=== PATIENT | female | born 1965 | race Caucasian/White ===

== ENCOUNTER 2016-07-07 23:00 | Emergency (ER) | payer MEDICAID ==
[2016-03-13 13:58] VITALS: BMI 25.5
[~2016-07-07 23:00] MED LIST: ASPIRIN325 MG PO; CHANTIX 1 MG TAB1 MG PO; DIABETA5 MG PO; ECOTRIN325 MG PO; GLUCOPHAGE500 MG PO; GLYBURIDE5 M1 PO; LANOXIN250 MCG PO; NEURONTIN 300300 MG PO; NICODERM C1 PATCH .2 TRANSDERM; NORCO 10/325 TA1 TA1 PO; PLAVIX75 MG; PLAVIX75 MG PO; PRAVACHOL40 MG PO; PRILOSEC10 M1 PO; PRILOSEC20 MG PO; VALIUM10 MG PO; XANAX0.5 MG PO
[2016-07-07 23:49] LABS: BASOPHILS 0.3 % (0.0-2.0); EOSINOPHILS 1.3 % (0-7); HEMATOCRIT 39.6 % (36.0-48.0); HEMOGLOBIN 13.2 g/dL (12-16); IMMATURE GRANULOCYTES 0.1 % (0-5); LYMPHOCYTES 30.2 % (15-50); MCH 27.8 pg (26.0-34.0); MCHC 33.3 g/dL (31.0-37.0); MCV 83.5 fL (80.0-100.0); MEAN PLATELET VOLUME 10.8 fL (7.4-10.4); MONOCYTES 6.9 % (2-11); NEUTROPHILS 61.2 % (40-80); PLATELET COUNT 254 10x3/uL (130-400); RBC 4.74 10x6/uL (4.00-5.40); RDW 14.2 % (11.5-14.5); WBC 10.4 10x3/uL (4.8-10.8)
[2016-07-08 00:08] LABS: ALBUMIN 3.8 g/dL (3.4-5.0); ALKALINE PHOSPHATASE 76 U/L (46-116); ALT (SGPT) 19 U/L (10-68); BILIRUBIN - TOTAL 0.21 mg/dL (0.2-1.3); CALC OSMOLALITY 278 mosm/kg (275-300); CALCIUM 9.5 mg/dL (8.5-10.1); CARBON DIOXIDE 25.8 mmol/L (21.0-32.0); CHLORIDE - SERUM 103 mmol/L (98-107); CREATININE - SERUM 0.9 mg/dL (0.6-1.3); POTASSIUM - SERUM 3.8 mmol/L (3.5-5.1); PROTEIN - SERUM 7.7 g/dL (6.4-8.2); SODIUM 139 mmol/L (136-145); UREA NITROGEN 15 mg/dL (7-18); eGFR NON AFRICAN AMERICAN 70 mL/min (90-120)
[2016-07-08 00:11] LABS: GLUCOSE 107 mg/dL (74-106)
[2016-07-08 00:20] LABS: CHOL - HDL RATIO 5.4 ratio (2.3-4.1); CHOLESTEROL, TOTAL 232 mg/dL (0-200); CKMB 0.4 U/L (0.0-3.6); CREATINE KINASE 31 UL (21-215); HDL CHOLESTEROL 43 mg/dL (32-96); LDL CHOLESTEROL 137 mg/dL (0-100); LDL-HDL RATIO 3.2 ratio (1.5-3.5); TRIGLYCERIDE 262 mg/dL (30-200); TROPONIN-I < 0.017 ng/mL (0.000-0.060)
== END 2016-07-08 01:30 | disposition home or self-care (01) ==
LOC: D.ER 23:00
PROVIDERS: Emergency Medicine
DX: R07.9 Chest pain, unspecified (principal); M51.36 Other intervertebral disc degeneration, lumbar region; E11.9 Type 2 diabetes mellitus without complications; F17.200 Nicotine dependence, unspecified, uncomplicated

== ENCOUNTER 2016-07-15 06:27 | Outpatient (CLI) | payer MEDICAID ==
[~2016-07-15] VITALS: Ht 162.6 cm; Wt 72.7 kg
[2016-07-15] VITALS (8 sets, daily range): BP systolic 115–138; BP diastolic 65–80; Ht 162.6 cm; Wt 72.7 kg
--- NOTE | ~2016-07-15 | HEMODYNAMI ---
PATIENT:VIVIANA DELAROSA MEDICAL RECORD: [id number] : 67 LOCATION:D. D.2116 ADMISSION DATE: 07/15/16 Generatedon:07/15/201615:12 Patient name: VIVIANA DELAROSA Patient #: [id number] SSN: [id number] : 1965 Date of study: 07/15/2016 Page: Of Hemodynamic Procedure Report Patient Data Patient Demographics Procedure consent was obtained First Name: VIVIANA Gender: Female Last Name: W[place] : 1965 Patient #: [id number] Age: 50 year(s) Race: SSN: [id number] Additional ID: [id number] Contact details Address: [address] [address] [address] State: [place] City: [place] Zip code: [address] Past Medical History Performed procedures and imaging results Date Procedure Procedure Results Comments 07/15/2016 No ACC stress or imaging studies were performed History of disease Date Diagnosis Comments CAD Allergies Allergen Reaction Date Comments Reported Penicillins 09/07/2014 Morphine 09/07/2014 Other allergy 09/07/2014 steroids Penicillins 07/15/2016 Morphine 07/15/2016 Admission Admission Data Admission Date: 07/15/2016 Admission Time: 6:27 Admit Source: Emergency Insurance Payor: Medicaid department Room #: D.2116 Lab Results Lab Result Date: 07/15/2016 Lab Result Time: 0:00 Biochemistry Name Units Result Min Max CK-MB ng/ml 0.5 --(*---)-- 0 3.6 Creatinine mg/dl 0.8 --(-*--)-- 0.6 1.3 Troponin l ng/ml 0.017 --(-*--)-- 0 0.06 CBC Name Units Result Min Max Hemoglobin g/dl 12.4 *-(----)-- 13.5 17.5 Procedure Procedure Types Cath Procedure Diagnostic Procedure [facility] w/Coronaries PCI Procedure PTCA Initial Procedure Description Procedure Date Procedure Date: 07/15/2016 Procedure Start Time: 14:20 Procedure End Time: 15:12 Procedure Staff Name Function Beni Preciado MD Performing Physician Farrah Mehta RT Scrub Reji Mcghee RN Nurse Cameron Leija RN Aquatics Manager Amy Aguillon RT Monitor Procedure Data Cath Procedure Fluoroscopy Diagnostic fluoroscopy Total fluoroscopy Time: 9.2 time: 9.2 min min Diagnostic fluoroscopy Total fluoroscopy dose: dose: 1234 mGy 1234 mGy Contrast Material Contrast Material Type Amount (ml) Isovue 300 93 Entry Location Entry Primary Successful Side Size Upsize Upsize Entry Closure Succes sful Closure Location (Fr) 1 (Fr) 2 (Fr) Remarks Device Remarks Femoral Right 5 Fr vein Femoral Right 5 Fr 6 Fr Exoseal artery Short Estimated blood loss: 10 ml Diagnostic catheters Device Type Used For End Catheter Placement Cordis 5Fr Pigtail LV Angiography Catheter (MP) Cordis 5Fr JL 4.0 Left Coronary Catheter (MP) Angiography Cordis 5Fr 3DRC Catheter Right Coronary (MP) Angiography Procedure Complications No complications Procedure Medications Medication Administration Route Dosage Oxygen NC 2 l/min Lidocaine 2% added to field 20 Heparin Flush Bag added to field 2 bags (1000units/500ml NS) 0.9% NaCl I.V. 100 ml/hr Versed I.V. 1 mg Fentanyl I.V. 50 mcg Versed I.V. 1 mg Fentanyl I.V. 50 mcg Versed I.V. 1 mg Fentanyl I.V. 50 mcg Versed I.V. 1 mg Fentanyl I.V. 50 mcg Fentanyl I.V. 50 mcg Fentanyl I.V. 50 mcg Versed I.V. 1 mg Plavix P.O. 75 mg Versed I.V. 1 mg Heparin Bolus I.V. 7000 units Fentanyl I.V. 50 mcg Versed I.V. 1 mg Fentanyl I.V. 50 mcg Versed I.V. 1 mg Hemodynamics Rest HGB: 12.4 (g/dl) Heart Rate: 76 (bpm) Pressure Samples Time Site Value (mmHg) Purpose Heart Use Rate(bpm) 14:35 LV 151/-19,3 Snapshot 102 14:36 AO 143/74(105) Pullback 93 14:36 LV 136/-15,6 Pullback 93 Gradients Valve Time Site 1 Site 2 Mean SEP/DFP Peak To Heart Use (mmHg) (sec/min) Peak Rate (mmHg) (bpm) Aortic 14:36 LV AO 0 7 0 93 136/-15,6 143/74(105) Calculations Valve P-P Mean Valve Index Valve Source Name Gradient Area Flow (cm2) Aortic 0 0 0 0 Snapshots Pre Cath Intra NCS Post Cath Vital Signs Time Heart Resp SPO2 NIBP (mmHg) Rhythm Pain Sedation Rate (ipm) (%) Status Level (bpm) 14:09:07 72 0 96 135/79(111) NSR 0 (11) 10(A) , No pain 14:13:19 79 16 97 125/82(106) NSR 0 (11) 10(A) , No pain 14:17:27 80 16 96 127/83(108) NSR 0 (11) 10(A) , No pain 14:21:34 84 12 96 120/88(101) NSR 0 (11) 9(A) , No pain 14:25:38 85 9 94 127/88(105) NSR 0 (11) 9(A) , No pain 14:29:48 93 8 90 125/76(113) NSR 0 (11) 9(A) , No pain 14:33:56 95 16 95 135/81(106) NSR 0 (11) 10(A) , No pain 14:38:06 94 17 95 131/84(114) NSR 0 (11) 9(A) , No pain 14:42:16 92 18 94 127/83(100) NSR 0 (11) 9(A) , No pain 14:46:28 95 16 96 119/69(100) NSR 0 (11) 9(A) , No pain 14:50:37 94 19 96 125/69(103) NSR 0 (11) 9(A) , No pain 14:54:47 96 17 97 131/78(103) NSR 0 (11) 9(A) , No pain 14:58:57 97 16 96 121/74(104) NSR 0 (11) 9(A) , No pain 15:03:56 98 17 96 124/69(107) NSR 0 (11) 9(A) , No pain 15:08:06 96 17 94 115/79(97) NSR 0 (11) 10(A) , No pain 15:12:12 97 9 96 124/74(104) NSR 0 (11) 10(A) , No pain Medications Time Medication Route Dose Verified Delivered Reason Notes Effectiveness by by 14:12:53 Plavix P.O. 75 mg Beni Buffie for Tr Mcghee RN antiplatelet therapy 14:14:08 Oxygen NC 2 Beni Buffie used for l/min Tr Mcghee coke wheeler 14:14:19 Lidocaine 2% added 20ml Beni Beni for local to vial Tr Preciado MD anesthetic field 14:14:24 Heparin Flush added 2 Beni Beni used for Bag to bags Tr Preciado MD procedure (1000units/500ml field NS) 14:14:33 0.9% NaCl I.V. 100 Beni Buffie Per ml/hr Tr Mcghee RN physician 14:16:03 Fentanyl I.V. 50 Beni Buffie for sedation mcg Tr Mcghee RN 14:16:59 Versed I.V. 1 mg Beni Buffie for sedation Tr Mcghee RN 14:19:46 Versed I.V. 1 mg Beni Buffie for sedation Tr Mcghee RN 14:19:52 Fentanyl I.V. 50 Beni Buffie for sedation mcg Tr Mcghee RN 14:21:25 Versed I.V. 1 mg Beni Buffie for sedation Tr Mcghee RN 14:21:28 Fentanyl I.V. 50 Beni Buffie for sedation mcg Tr Mcghee RN 14:24:52 Versed I.V. 1 mg Beni Buffie for sedation Tr Mcghee RN 14:24:56 Fentanyl I.V. 50 Beni Buffie for sedation mcg Tr Mcghee RN 14:30:31 Fentanyl I.V. 50 Beni Buffie for sedation mcg Tr Mcghee RN 14:30:35 Versed I.V. 1 mg Beni Buffie for sedation Tr Mcghee RN 14:35:33 Fentanyl I.V. 50 Beni Buffie for sedation mcg Tr Mcghee RN 14:38:43 Versed I.V. 1 mg Beni Buffie for sedation Tr Mcghee RN 14:44:46 Versed I.V. 1 mg Beni Buffie for sedation Tr Mcghee RN 14:53:23 Heparin Bolus I.V. 7,000 Beni Buffie Per verified units Tr Mcghee RN physician with dr preciado 14:55:35 Fentanyl I.V. 50 Beni Buffie for sedation mcg Tr Mcghee RN 15:03:01 Fentanyl I.V. 50 Beni Buffie for sedation mcg Tr Mcghee RN 15:03:21 Versed I.V. 1 mg Beni Buffie for sedation Tr Mcghee financial planning analyst Log Time Note 13:50:53 Cameron Leija RN sent for patient. Start room use. 13:50:55 Time tracking: Regular hours 13:50:58 Plan of Care:Hemodynamics will remain stable., Cardiac rhythm will remain stable., Comfort level will be maintained., Respiratory function will remain adequate., Patient/ family verbilizes understanding of procedure., Procedure tolerated without complication., Recovers from procedure without complications.. 13:53:19 Admit Source: Emergency department 13:53:27 Insurance Payor : Medicaid 13:55:06 H&P Date Dictated: 07/15/2016 Within 30 days and on chart.. 13:55:11 ACC The patient was administered the following blood thiners within the last 24 hours: None 13:55:21 ACC Patient presents with Unstable Angina CCS Anginal Class 4--Inability to carry out any physical activity w/o angina. Angina may occur at rest. 13:55:24 ACCPatient has been prescribed/administered the following anti-anginal medication within the last 2 weeks: Ranexa (Ranolizine) 13:56:07 Lab Result : Troponin l 0.017 ng/ml 13:56:07 Lab Result : CK-MB 0.5 ng/ml 13:56:07 Lab Result : Creatinine 0.8 mg/dl 13:56:07 Lab Result : Hemoglobin 12.4 g/dl 14:01:27 Patient received from PCU to CCL 3 Alert and oriented. Tansferred to table in Supine position. 14:01:28 Warm blankets applied, and temitope hugger turned on for patient comfort. 14:01:29 Correct patient and procedure confirmed by team. 14:01:30 Signed procedure consent form obtained from patient. 14:01:31 ECG and BP/O2 sat monitors applied to patient. 14:01:32 Full Disclosure recording started 14:07:58 Vital chart was started 14:12:33 Baseline sample Acquired. 14:12:36 Rhythm: sinus rhythm 14:12:38 Pre-procedure instructions explained to patient. 14:12:38 Pre-op teaching completed and patient verbalized understanding. 14:12:42 Family in patients room. 14:12:44 Patient NPO since Midnight. 14:12:51 Patient allergic to Penicillins 14:12:53 Plavix 75 mg P.O. was given by Reji Mcghee RN; for antiplatelet therapy; 14:12:59 Patient allergic to Morphine 14:13:04 Is the patient allergic to Iodine/contrast media? No. 14:13:06 Is patient on blood thinner?Yes 14:13:09 Patient diabetic? Yes. 14:13:17 If diabetic: On Metformin? No 14:13:21 Previous problem with sedation/anesthesia? No ? 14:13:26 Snore? Yes 14:13:28 Sleep apnea? No 14:13:29 Deviated septum? No 14:13:30 Opens mouth fully? Yes 14:13:31 Sticks out tongue? Yes 14:13:33 Airway obstruction? No ? 14:13:35 Dentures? Yes OUT 14:14:00 Pre procedure: right dorsailis pedis pulse 2+ Normal; easily identifiable; not easily obliterated 14:14:02 Patient pain scale 0/10 ?. 14:14:08 Oxygen 2 l/min NC was given by Reji Mcghee RN; used for procedure; 14:14:19 Lidocaine 2% 20ml vial added to field was given by Beni Preciado MD; for local anesthetic; 14:14:24 Heparin Flush Bag (1000units/500ml NS) 2 bags added to field was given by Beni Preciado MD; used for procedure; 14:14:31 IV patent on arrival in right wrist with 0.9% NaCl at [facility]. 14:14:33 0.9% NaCl 100 ml/hr I.V. was given by Reji Mcghee RN; Per physician; 14:14:35 Lab results completed and on chart. 14:14:42 Right groin area was prepped with chlora-prep and draped in sterile fashion 14:14:43 Alarms reviewed by R. N. 14:14:44 Sharps counted by scrub and verified by R.N. 14:14:51 Use device set Femoral Dx 14:14:52 Acist Syringe opened to sterile field. 14:14:53 Bag Decanter opened to sterile field. 14:14:53 Cardinal Cath Pack opened to sterile field. 14:14:54 Terumo 5Fr Elberon Sheath opened to sterile field. 14:14:54 St Kyle 260cm J .035 wire opened to sterile field. 14:14:55 Acist Hand Control opened to sterile field. 14:14:56 Acist Manifold opened to sterile field. 14:14:57 Cordis Infinity 5Fr Multipack catheter opened to sterile field. 14:14:58 Tegaderm 4 x 4 opened to sterile field. 14:15:06 Final Timeout: patient, procedure, and site verified with staff and physician. All members of the team are in agreement. 14:15:08 Right groin site verified by team. 14:15:15 Physical assessment completed. ASA score P 2 - A patient with mild systemic disease as per Beni Preciado MD. 14:15:23 Sedation plan: IV Moderate Sedation Versed, Fentanyl 14:16:03 Fentanyl 50 mcg I.V. was given by Reji Mcghee RN; for sedation; 14:16:59 Versed 1 mg I.V. was given by Reji Mcghee RN; for sedation; 14:19:46 Versed 1 mg I.V. was given by Reji Mcghee RN; for sedation; 14:19:52 Fentanyl 50 mcg I.V. was given by Reji Mcghee RN; for sedation; 14:20:31 Procedure started. 14:20:34 Local anesthetic to right femoral artery with Lidocaine 2% by Beni Preciado MD.INITIAL ACCESS ONLY 14:21:23 Zero performed for pressure channel P1 14:21:25 Versed 1 mg I.V. was given by Reji Mcghee RN; for sedation; 14:21:28 Fentanyl 50 mcg I.V. was given by Reji Mcghee RN; for sedation; 14:24:52 Versed 1 mg I.V. was given by Reji Mcghee RN; for sedation; 14:24:56 Fentanyl 50 mcg I.V. was given by Reji Mcghee RN; for sedation; 14:30:31 Fentanyl 50 mcg I.V. was given by Reji Mcghee RN; for sedation; 14:30:35 Versed 1 mg I.V. was given by Reji Mcghee RN; for sedation; 14:34:39 A 5 Fr sheath was inserted into the Right Femoral vein 14:34:51 A 5 Fr sheath was inserted into the Right Femoral artery 14:35:33 Fentanyl 50 mcg I.V. was given by Reji Mcghee RN; for sedation; 14:36:10 A Cordis 5Fr Pigtail Catheter (MP) was advanced over the wire and used for LV Angiography. 14:36:11 LV gram done using BEGUM 14:36:16 EF : 60 % 14:36:18 LV hemodynamics recorded. 14:36:20 Injector settings: Ml/sec: 10, Volume: 20, 14:36:55 Catheter removed. 14:37:52 A Cordis 5Fr JL 4.0 Catheter (MP) was advanced over the wire and used for Left Coronary Angiography. 14:38:43 Versed 1 mg I.V. was given by Reji Mcghee RN; for sedation; 14:43:57 Catheter removed. 14:44:02 A Cordis 5Fr 3DRC Catheter (MP) was advanced over the wire and used for Right Coronary Angiography. 14:44:46 Versed 1 mg I.V. was given by Reji Mcghee RN; for sedation; 14:49:09 Catheter removed. 14:49:34 Terumo 6Fr Elberon Sheath opened to sterile field. 14:49:54 High Pressure Extension Tubing (rT) opened to sterile field. 14:49:55 Merit BasixCompak Inflation Kit opened to sterile field. 14:49:55 Wick BMW [place] 2 J-tip 300cm 0.014 guide wir opened to sterile field. 14:50:35 Sheath upsized to a 6 Fr Short. 14:50:46 ACC PCI Site: OM1 has 80% stenosis. 14:50:48 ACC Pre-intervention REAL Flow is 3. 14:51:40 6 Fr XBLAD 3.5 guide catheter was inserted over the wire 14:51:51 Cordis 6FR XBLAD 3.5 guide catheter opened to sterile field. 14:53:23 Heparin Bolus 7,000 units I.V. was given by Reji Mcghee RN; Per physician; verified with dr preciado 14:53:52 BMW wire advanced. 14:55:35 Fentanyl 50 mcg I.V. was given by Reji Mcghee RN; for sedation; 14:58:06 Inflation number: 1 A [place] Sci Faulk 1.5 X 15 balloon was prepped and advanced across the 1st Ob Valery, then inflated to 12 JESSICA for 0:56 (min:sec). 14:58:37 Inflation number: 2 The [place] Sci Faulk 1.5 X 15 balloon was reinflated across the 1st Ob Valery, to 10 JESSICA for 0:29 (min:sec). 14:59:21 Inflation number: 3 The [place] Sci Faulk 1.5 X 15 balloon was reinflated across the 1st Ob Valery, to 11 JESSICA for 0:41 (min:sec). 15:01:56 Balloon removed over the wire. 15:03:01 Fentanyl 50 mcg I.V. was given by Reji Mcghee RN; for sedation; 15:03:21 Versed 1 mg I.V. was given by Reji Mcghee RN; for sedation; 15:04:05 Inflation number: 4 A [place] Sci Faulk 2.0 X 12 balloon was prepped and advanced across the 1st Ob Valery, then inflated to 10 JESSICA for 0:43 (min:sec). 15:05:04 Inflation number: 5 The [place] Sci Faulk 2.0 X 12 balloon was reinflated across the 1st Ob Valery, to 12 JESSICA for 0:33 (min:sec). 15:05:41 Wire removed. 15:05:43 Guide catheter removed. 15:06:09 Cordis 6Fr Exoseal opened to sterile field. 15:06:17 Sheath removed intact; hemostasis achieved with Exoseal to the Right Femoral artery. 15:06:22 Procedure ended.(Physican Out) 15:07:04 Fluoroscopy time 09.20 minutes. 15:07:19 Flurop Dose total: 1234 15:07:19 Fluoroscopy dose: 1234 mGy 15:07:32 Contrast amount:Isovue 300 93ml. 15:07:34 Sharps counted by scrub and verified by R.N. 15:07:36 Insertion/operative site no bleeding no hematoma. 15:07:39 Post-op/insertion site Right Femoral artery dressed using a 4 x 4 and Tegaderm. 15:07:42 Post right femoral artery:stable, clean and dry 15:07:44 Post Procedure Pulses reassessed and unchanged 15:07:47 Post procedure: right dorsailis pedis pulse 2+ Normal; easily identifiable; not easily obliterated. 15:07:52 Post-procedure physical assessment completed. ASA score P 2 - A patient with mild systemic disease as per Beni Preciado MD. 15:07:54 Post procedure rhythm: unchanged. 15:07:57 Estimated blood loss: 10 ml 15:07:59 Post procedure instruction explained to patient.Patient verbalizes understanding. 15:07:59 Patient needs reinforcement of post procedure teaching. 15:08:04 Procedure type changed to Cath procedure, Diagnostic procedure, LHC, LHC w/Coronaries, PCI procedure, PTCA Initial 15:08:12 Procedure Complication : No complications 15:08:15 See physician's report for complete and final results. 15:09:19 Terumo 5Fr Elberon Sheath opened to sterile field. 15:10:04 Procedure and supply charges have been captured, reviewed, submitted and are correct. 15:11:50 Vital chart was stopped 15:12:03 Report given to PCU. 15:12:07 Patient transfered to PCU with Bed. 15:12:19 Procedure ended. 15:12:19 Full Disclosure recording stopped 15:12:23 End room use (Document Last) Intervention Summary Intervention Notes Time ActionType Lesion and Equipment Action# Pressure Duration Attributes Used 14:58:06 Inflate 1st Ob Valery [place] 1 12 00:56 balloon Sci Faulk 1.5 X 15 balloon 14:58:37 Reinflate 1st Ob Valery [place] 2 10 00:29 balloon Sci Faulk 1.5 X 15 balloon 14:59:21 Reinflate 1st Ob Valery [place] 3 11 00:41 balloon Sci Faulk 1.5 X 15 balloon 15:04:05 Inflate 1st Ob Valery [place] 4 10 00:43 balloon Sci Faulk 2.0 X 12 balloon 15:05:04 Reinflate 1st Ob Valery [place] 5 12 00:33 balloon Sci Faulk 2.0 X 12 balloon Device Usage Item Name Manufacture Quantity Catalog Number Hospital Part Current Mini [facility] Lot# / Charge Number Stock Stock Serial# Code Acist Acist 1 89730 [id number] 401348 114255 20 Syringe Medical Systems Inc Bag Microtek 1 2002S 918919 10228 729690 5 Andtix Inc. Cardinal Cardinal [address] 827143 45540 335315 5 Media Machines Terumo 5Fr Terumo 2 [id number] 838429 083588 489382 [address] St Kyle 1 185742 788084 934359 744120 30 260cm J .035 wire Acist Hand Acist 1 87849 925155 358555 163202 5 Control Medical Systems Inc Acist Acist 1 52452 822756 073449 260723 5 Manifold Medical Systems Inc Cordis Cardinal 1 [id number] 095470 42392 321996 30 Infinity Health 5Fr Multipack catheter Tegaderm 4 3M 1 1626W 636100 875230 408591 5 x 4 Cordis 5Fr Cardinal 1 964061 5 Pigtail Health Catheter (MP) Cordis 5Fr Cardinal 1 357149 5 JL 4.0 Health Catheter (MP) Cordis 5Fr Cardinal 1 752083 5 3DRC Health Catheter (MP) Terumo 6Fr Terumo 1 [id number] 733072 063727 070021 40 Elberon Sheath High Merit 1 [id number] 225299 29555 784988 10 Pressure Medical Extension Tubing (Preciado) Merit Merit 1 [id number] 323249 679947 356341 15 BasixCompak Medical Inflation Kit Wick BMW Wick 1 [id number] 736947 375180 372974 5 [place] 2 Vascular J-tip 300cm 0.014 guide wir Cordis 6FR Cardinal 1 [id number] 671729 527611 340262 10 XBLAD 3.5 Health guide catheter [place] Sci [place] 1 [id number] 235570 658723 966378 1 [id number] Faulk Scientific 1.5 X 15 balloon [place] Sci [place] 1 [id number] 988646 290119 085097 1 [id number] Faulk Scientific 2.0 X 12 balloon Cordis 6Fr Cardinal 1 EX600 468734 723730 876551 10 [facility] Health Signature Audit [place] Stage Time Signature Unsigned Intra-Procedure 07/15/2016 Amy 3:12:38 PM Counts RT(R) Signatures Monitor : Amy Signature : Counts RT Date : Time : [facility] [address] [place] [address]
[2016-07-15 03:37] LABS: BASOPHILS 0.1 % (0.0-2.0); EOSINOPHILS 1.8 % (0-7); HEMATOCRIT 39.3 % (36.0-48.0); HEMOGLOBIN 13.1 g/dL (12-16); IMMATURE GRANULOCYTES 0.2 % (0-5); LYMPHOCYTES 40.5 % (15-50); MCH 28.2 pg (26.0-34.0); MCHC 33.3 g/dL (31.0-37.0); MCV 84.5 fL (80.0-100.0); MEAN PLATELET VOLUME 11.1 fL (7.4-10.4); NEUTROPHILS 48.4 % (40-80); PLATELET COUNT 260 10x3/uL (130-400); RBC 4.65 10x6/uL (4.00-5.40); RDW 14.7 % (11.5-14.5); WBC 8.8 10x3/uL (4.8-10.8)
[2016-07-15 03:52] LABS: ALBUMIN 3.7 g/dL (3.4-5.0); ALKALINE PHOSPHATASE 67 U/L (46-116); ALT (SGPT) 20 U/L (10-68); BILIRUBIN - TOTAL 0.23 mg/dL (0.2-1.3); CALC OSMOLALITY 283 mosm/kg (275-300); CALCIUM 9.5 mg/dL (8.5-10.1); CHLORIDE - SERUM 106 mmol/L (98-107); CREATININE - SERUM 0.9 mg/dL (0.6-1.3); GLUCOSE 90 mg/dL (74-106); POTASSIUM - SERUM 3.7 mmol/L (3.5-5.1); PROTEIN - SERUM 7.2 g/dL (6.4-8.2); SODIUM 143 mmol/L (136-145); UREA NITROGEN 9 mg/dL (7-18); eGFR NON AFRICAN AMERICAN 70 mL/min (90-120)
[2016-07-15 04:02] LABS: CHOL - HDL RATIO 4.8 ratio (2.3-4.1); CHOLESTEROL, TOTAL 215 mg/dL (0-200); CKMB 0.5 U/L (0.0-3.6); CREATINE KINASE 32 UL (21-215); HDL CHOLESTEROL 45 mg/dL (32-96); LDL CHOLESTEROL 110 mg/dL (0-100); LDL-HDL RATIO 2.4 ratio (1.5-3.5); TRIGLYCERIDE 304 mg/dL (30-200)
[2016-07-15 04:12] LABS: TROPONIN-I < 0.017 ng/mL (0.000-0.060)
--- NOTE | 2016-07-15 07:47 | NUR ---
RECEIVED PT FROM ER IN STABLE CONDITION VIA W/C AAOX4 ANSWERS APPROPRIATELY
[2016-07-15] MEDS ORDERED: PROTONIX40 MG PO (08:04)
[2016-07-15] MEDS ORDERED: RANEXA1000 MG PO (08:05)
[2016-07-15] MEDS ORDERED: ZETIA10 MG PO (08:05)
[2016-07-15 11:02] LABS: BASOPHILS 0.2 % (0.0-2.0); EOSINOPHILS 1.3 % (0-7); HEMATOCRIT 38.3 % (36.0-48.0); HEMOGLOBIN 12.4 g/dL (12-16); IMMATURE GRANULOCYTES 0.2 % (0-5); LYMPHOCYTES 29.8 % (15-50); MCH 27.6 pg (26.0-34.0); MCHC 32.4 g/dL (31.0-37.0); MCV 85.3 fL (80.0-100.0); MEAN PLATELET VOLUME 10.8 fL (7.4-10.4); MONOCYTES 5.5 % (2-11); PLATELET COUNT 235 10x3/uL (130-400); RBC 4.49 10x6/uL (4.00-5.40); RDW 14.7 % (11.5-14.5); WBC 9.6 10x3/uL (4.8-10.8)
[2016-07-15 11:19] LABS: CALC OSMOLALITY 279 mosm/kg (275-300); CALCIUM 9.3 mg/dL (8.5-10.1); CARBON DIOXIDE 27.4 mmol/L (21.0-32.0); CHLORIDE - SERUM 103 mmol/L (98-107); CREATININE - SERUM 0.8 mg/dL (0.6-1.3); SODIUM 139 mmol/L (136-145); UREA NITROGEN 9 mg/dL (7-18); eGFR NON AFRICAN AMERICAN 81 mL/min (90-120)
[2016-07-15 11:23] LABS: GLUCOSE 158 mg/dL (74-106)
--- NOTE | 2016-07-28 15:45 | DS ---
PATIENT:VIVIANA BOGGS :67 MEDICAL RECORD: [id number] DISCHARGE SUMMARY ADMISSION DATE: 07/15/16 DISCHARGE DATE: 07/16/16 ADMISSION DIAGNOSIS: Unstable angina. SECONDARY DIAGNOSES: 1. Hypertension. 2. Atherosclerotic heart disease. HOSPITAL COURSE: Mr. Boggs is a 50-year-old woman with history of coronary artery disease. She presented to the Emergency Room with accelerating angina. She underwent cardiac catheterization. She had a critical restenosis of the lateral branch and circumflex. This was successfully dilated. She will be observed for 4 hours. Her groin was without hematoma or bruit. She will be discharged to home this afternoon. MEDICATIONS ON DISCHARGE: She is to continue her home medical regimen. FOLLOWUP: We will see her back in clinic in 3-4 weeks. TRANSINT:[id number] Voice Confirmation ID: [id number] DOCUMENT ID: [id number] JOSE FRANCISCO PRYOR M.D. at 1545 CC: [id number] DICTATION DATE: 07/15/16 1513 SOUND RANGING CREWMEMBER: 07/15/16 1546 DEP CLI 07/16/16 [address] [place] [address]
--- NOTE | 2016-07-28 15:45 | OP ---
PATIENT NAME: VIVIANA DELAROSA MEDICAL RECORD: [id number] :67 LOCATION:D.ER ADMISSION DATE: SURGEON: JOSE FRANCISCO PRYOR M.D. DATE OF OPERATION: 07/15/2016 Catheterization Report REFERRING PHYSICIAN: None. PROCEDURES PERFORMED: 1. Selective coronary angiography. 2. Left heart catheterization with ventriculogram. 3. PTCA of the circumflex. INDICATION: A 50-year-old woman status post stenting 4 months ago, presents with accelerating angina. EQUIPMENT USED: Diagnostic 5-[place] JL4, Deyvi right, pigtail catheter. INTERVENTION: A 6-[place] XB 3.5 guide, BMW guide wire, 1.5 x 12 mm [place] balloon, 2.0 x 12 mm [place] balloon. TECHNIQUE: A 5-[place] sheath was inserted in retrograde fashion in the right common femoral artery. Next, selective coronary angiography was performed in standard views using 5-[place] JL4 and Deyvi right. Left heart catheterization was performed using pigtail catheter. CORONARY ANATOMY: 1. Left main: Left main trunk is moderate in caliber. It gives rise to the LAD and circumflex. There is no obstruction. 2. LAD: This is a moderate caliber vessel extending to the apex. The proximal vessel has been stented. The stents are widely patent. 3. Circumflex: This vessel is moderate in caliber and dominant. It provides a lateral branch in the proximal segment with continuation provides 2 large posterolateral branches to form the PDA. The mid vessel has been stented. The stents are widely patent. However, the origin of the first lateral branch has a 90% stenosis at the origin. 4. Right coronary: This vessel is small and nondominant. It is widely patent. 5. Left ventricle: Left ventricle is normal in size and function. No wall motion abnormalities are seen. Estimated ejection fraction is 60%. DESCRIPTION OF INTERVENTION: A 6-[place] sheath was inserted in retrograde fashion in the right common femoral artery. Next, 100 units per kilogram of heparin was infused. A 6-[place] XB 3.5 guide was advanced and engaged in the left main coronary artery. Next, a BMW guide wire was placed in the first lateral branch and circumflex. The origin was predilated with a 1.5 x 12 mm [place] balloon at 12 atmospheres. Injections revealed persistent 70% residual stenosis. At this point, a 2.0 x 12 mm balloon was advanced and several inflations were performed at the ostium at 12 atmospheres. Injections revealed about 10% to 20% residual stenosis. There is marked improvement in distal flow. At this point, the wire and guide were removed. IMPRESSION: Successful percutaneous transluminal coronary angioplasty to the lateral branch and circumflex. OPERATIVE REPORT [id number] FUADTAYLOR STOVALLILAN TRANSINT:[id number] Voice Confirmation ID: [id number] DOCUMENT ID: [id number] JOSE FRANCISCO PRYOR M.D. at 1545 CC: [id number] DICTATION DATE: 07/15/16 1513 THIMBLE PRESS OPERATOR: 07/15/16 1542 [facility] CLI 07/16/16 [id number] [place] [address]
== END 2016-07-16 00:06 | disposition home or self-care (01) ==
LOC: OBSVTIME → D.M2 06:27 → D.ER 06:27 → OBSVTIME 06:44 → EDSTATUS 13:00 → D.M2 07-16 00:06 → D.ER 07-16 00:06
PROVIDERS: Emergency Medicine; Internal Medicine Cardiovascular Disease
DX: I20.0 Unstable angina (principal); E11.9 Type 2 diabetes mellitus without complications; E78.5 Hyperlipidemia, unspecified

== ENCOUNTER 2016-07-16 20:34 | Emergency (ER) | payer MEDICAID ==
[2016-07-15 19:16] VITALS: BMI 27.5
[~2016-07-16 20:34] MED LIST changes: +PROTONIX40 MG PO; +RANEXA1000 MG PO; +ZETIA10 MG PO
[2016-07-16 22:21] LABS: BASOPHILS 0.2 % (0.0-2.0); EOSINOPHILS 1.7 % (0-7); HEMATOCRIT 40.2 % (36.0-48.0); HEMOGLOBIN 13.6 g/dL (12-16); IMMATURE GRANULOCYTES 0.1 % (0-5); LYMPHOCYTES 35.5 % (15-50); MCH 28.6 pg (26.0-34.0); MCHC 33.8 g/dL (31.0-37.0); MCV 84.5 fL (80.0-100.0); MEAN PLATELET VOLUME 11.3 fL (7.4-10.4); MONOCYTES 7.4 % (2-11); NEUTROPHILS 55.1 % (40-80); PLATELET COUNT 268 10x3/uL (130-400); RBC 4.76 10x6/uL (4.00-5.40); RDW 14.5 % (11.5-14.5); WBC 8.8 10x3/uL (4.8-10.8)
[2016-07-16 22:30] LABS: ALBUMIN 3.8 g/dL (3.4-5.0); ALKALINE PHOSPHATASE 69 U/L (46-116); BILIRUBIN - TOTAL 0.19 mg/dL (0.2-1.3); CALC OSMOLALITY 278 mosm/kg (275-300); CALCIUM 9.1 mg/dL (8.5-10.1); CHLORIDE - SERUM 104 mmol/L (98-107); CREATININE - SERUM 0.9 mg/dL (0.6-1.3); GLUCOSE 137 mg/dL (74-106); POTASSIUM - SERUM 4.1 mmol/L (3.5-5.1); PROTEIN - SERUM 7.5 g/dL (6.4-8.2); SODIUM 139 mmol/L (136-145); UREA NITROGEN 10 mg/dL (7-18); eGFR NON AFRICAN AMERICAN 70 mL/min (90-120)
[2016-07-16 22:32] LABS: ALT (SGPT) 27 U/L (10-68)
[2016-07-16 22:39] LABS: CKMB 0.2 U/L (0.0-3.6); CREATINE KINASE 27 UL (21-215)
[2016-07-16 22:40] LABS: TROPONIN-I < 0.017 ng/mL (0.000-0.060)
== END 2016-07-16 23:19 | disposition home or self-care (01) ==
LOC: D.ER 20:34
PROVIDERS: Emergency Medicine
DX: I25.10 Atherosclerotic heart disease of native coronary artery without angina pectoris (principal); R07.9 Chest pain, unspecified; R00.0 Tachycardia, unspecified; R94.31 Abnormal electrocardiogram [ECG] [EKG]; F17.200 Nicotine dependence, unspecified, uncomplicated

== ENCOUNTER 2016-10-12 21:18 | Emergency (ER) | payer MEDICAID ==
[2016-10-12 22:10] LABS: BASOPHILS 0.4 % (0.0-2.0); EOSINOPHILS 1.2 % (0-7); HEMATOCRIT 39.1 % (36.0-48.0); HEMOGLOBIN 12.9 g/dL (12-16); IMMATURE GRANULOCYTES 0.1 % (0-5); LYMPHOCYTES 30.6 % (15-50); MCH 27.9 pg (26.0-34.0); MCV 84.6 fL (80.0-100.0); MEAN PLATELET VOLUME 11.2 fL (7.4-10.4); NEUTROPHILS 61.7 % (40-80); PLATELET COUNT 250 10x3/uL (130-400); RBC 4.62 10x6/uL (4.00-5.40); RDW 13.6 % (11.5-14.5); WBC 8.4 10x3/uL (4.8-10.8)
[2016-10-12 22:20] LABS: ALBUMIN 3.5 g/dL (3.4-5.0); ALKALINE PHOSPHATASE 90 U/L (46-116); ALT (SGPT) 24 U/L (10-68); BILIRUBIN - TOTAL 0.29 mg/dL (0.2-1.3); CALC OSMOLALITY 280 mosm/kg (275-300); CALCIUM 8.9 mg/dL (8.5-10.1); CARBON DIOXIDE 24.1 mmol/L (21.0-32.0); CHLORIDE - SERUM 101 mmol/L (98-107); CREATININE - SERUM 0.9 mg/dL (0.6-1.3); POTASSIUM - SERUM 4.2 mmol/L (3.5-5.1); PROTEIN - SERUM 7.4 g/dL (6.4-8.2); SODIUM 137 mmol/L (136-145); UREA NITROGEN 12 mg/dL (7-18); eGFR NON AFRICAN AMERICAN 70 mL/min (90-120)
[2016-10-12 22:21] LABS: GLUCOSE 230 mg/dL (74-106)
[2016-10-12 22:31] LABS: CHOL - HDL RATIO 7.5 ratio (2.3-4.1); CHOLESTEROL, TOTAL 225 mg/dL (0-200); CKMB 0.4 U/L (0.0-3.6); CREATINE KINASE 86 UL (21-215); HDL CHOLESTEROL 30 mg/dL (32-96); LDL CHOLESTEROL 120 mg/dL (0-100); MAGNESIUM - SERUM 1.8 mg/dL (1.8-2.4); TRIGLYCERIDE 379 mg/dL (30-200)
[2016-10-12 22:33] LABS: TROPONIN-I < 0.017 ng/mL (0.000-0.060)
== END 2016-10-12 23:03 | disposition home or self-care (01) ==
LOC: D.ER 21:18
PROVIDERS: Emergency Medicine
DX: R07.9 Chest pain, unspecified (principal); I25.10 Atherosclerotic heart disease of native coronary artery without angina pectoris; E11.9 Type 2 diabetes mellitus without complications; M51.36 Other intervertebral disc degeneration, lumbar region; F17.200 Nicotine dependence, unspecified, uncomplicated

== ENCOUNTER 2016-10-27 08:09 | Outpatient (CLI) | payer MEDICAID ==
[~2016-10-27] VITALS: Ht 162.6 cm; Wt 77.3 kg
--- NOTE | ~2016-10-27 | HEMODYNAMI ---
PATIENT:VIVIANA DELAROSA MEDICAL RECORD: [id number] : 67 LOCATION:[facility] ADMISSION DATE: 10/27/16 Generatedon:10/27/201611:29 Patient name: VIVIANA DELAROSA Patient #: [id number] SSN: [id number] : 1965 Date of study: 10/27/2016 Page: Of Hemodynamic Procedure Report Patient Data Patient Demographics Procedure consent was obtained First Name: VIVIANA Gender: Female Last Name: [place] : 1965 Patient #: [id number] Age: 51 year(s) Race: SSN: [id number] Additional ID: [id number] Contact details Address: [place] [address] State: [place] City: [place] Zip code: [address] Past Medical History History of disease Date Diagnosis Comments CAD Allergies Allergen Reaction Date Comments Reported Penicillins 09/07/2014 Morphine 09/07/2014 Other allergy 09/07/2014 steroids Penicillins 07/15/2016 Morphine 07/15/2016 Admission Admission Data Admission Date: 10/27/2016 Admission Time: 8:09 Arrival Date: 10/27/2016 Arrival Time: 0:00 Admit Source: Other Insurance Payor: Medicaid Height (in.): 66 BSA: 1.87 (m2) Height (cm.): 167.64 BMI: 27.6 (kg/m2) Weight (lbs.): 171 Weight (kg.): 77.56 Lab Results Lab Result Date: 10/27/2016 Lab Result Time: 0:00 Biochemistry Name Units Result Min Max BUN mg/dl 16 --(---*)-- 7 18 Creatinine mg/dl 0.7 --(*---)-- 0.6 1.3 CBC Name Units Result Min Max Hemoglobin g/dl 12.6 -*(----)-- 13.5 17.5 Procedure Procedure Types Cath Procedure Diagnostic Procedure LHC [facility] w/Coronaries PCI Procedure Coronary Stent Initial Miscellaneous Procedures Moderate Sedation up to 30 minutes Peripheral Cath Diagnostic Procedure Cath Peripheral Raqyj-Hxjpqhc-Uiy-Off Procedure Description Procedure Date Procedure Date: 10/27/2016 Procedure Start Time: 11:04 Procedure End Time: 11:25 Procedure Staff Name Function Kalyan Byrd MD Performing Physician Farrah Mehta RT Scrub Reji Mcghee RN Nurse Monserrat Wilkerson RT Monitor Procedure Data Cath Procedure Fluoroscopy Diagnostic fluoroscopy Total fluoroscopy Time: 4.5 time: 4.5 min min Diagnostic fluoroscopy Total fluoroscopy dose: 908 dose: 908 mGy mGy Contrast Material Contrast Material Type Amount (ml) Isovue 370 125 Entry Location Entry Primary Successful Side Size Upsize Upsize Entry Closure Succes sful Closure Location (Fr) 1 (Fr) 2 (Fr) Remarks Device Remarks Femoral Right 5 Fr 6 Fr Exoseal artery Short Estimated blood loss: 5 ml Diagnostic catheters Device Type Used For End Catheter Placement Cordis 5Fr Pigtail LV Angiography Catheter (MP) Cordis 5Fr JL 4.0 Left Coronary Catheter (MP) Angiography Cordis 5Fr 3DRC Catheter Right Coronary (MP) Angiography Diagnostic Infinity 5Fr Right Coronary AR 2 MOD catheter Angiography Procedure Complications No complications Procedure Medications Medication Administration Route Dosage Oxygen NC 2 l/min Lidocaine 2% added to field 20 Heparin Flush Bag added to field 2 bags (1000units/500ml NS) 0.9% NaCl I.V. 100 ml/hr Versed I.V. 2 mg Fentanyl I.V. 100 mcg Versed I.V. 2 mg Fentanyl I.V. 100 mcg Versed I.V. 2 mg Fentanyl I.V. 100 mcg Versed I.V. 2 mg Fentanyl I.V. 100 mcg Heparin Bolus I.V. 4000 units Hemodynamics Rest BSA: 1.87 (m2) HGB: 12.6 (g/dl) O2 Consumption: Estimated: 184.65 (ml/min) O2 Co nsumption indexed: Estimated:98.74 (ml/min/m) Heart Rate: 72 (bpm) Pressure Samples Time Site Value (mmHg) Purpose Heart Use Rate(bpm) 11:11 LV 81/25,30 Snapshot 86 Snapshots Pre Cath Intra NCS Post Cath Vital Signs Time Heart Resp SPO2 etCO2 [id number] NIBP (mmHg) Rhythm Pain Sedation Rate (ipm) (%) (mmHg) (mmHg) Status Level (bpm) 10:27:29 73 19 98 0 0 144/80(107) NSR 0 (11) 10(A) , No pain 10:31:43 73 15 100 0 0 139/83(116) NSR 0 (11) 10(A) , No pain 10:35:59 80 18 99 0 0 143/87(121) NSR 0 (11) 10(A) , No pain 10:40:15 82 16 98 0 0 146/82(102) NSR 0 (11) 10(A) , No pain 10:44:29 76 15 100 0 0 148/75(129) NSR 0 (11) 10(A) , No pain 10:48:47 78 16 98 0 0 145/79(107) NSR 0 (11) 10(A) , No pain 10:53:05 78 15 99 0 0 132/75(101) NSR 0 (11) 10(A) , No pain 10:57:19 81 15 97 0 0 137/75(105) NSR 0 (11) 10(A) , No pain 11:01:35 80 17 98 0 0 129/75(98) NSR 0 (11) 10(A) , No pain 11:05:49 81 18 98 0 0 130/73(100) NSR 0 (11) 10(A) , No pain 11:10:01 82 16 97 0 0 118/80(105) NSR 0 (11) 9(A) , No pain 11:14:11 93 19 94 0 0 131/75(92) NSR 0 (11) 9(A) , No pain 11:18:23 96 16 94 0 0 129/82(119) NSR 0 (11) 9(A) , No pain 11:22:35 94 17 95 0 0 132/75(110) NSR 0 (11) 10(A) , No pain Medications Time Medication Route Dose Verified Delivered Reason Notes Effectiveness by by 10:39:13 Oxygen NC 2 Kalyan Buffie used for l/min Carson Mcghee typists supervisor 10:39:23 Lidocaine 2% added 20ml Kalyan Biggs for local to vial Carson Byrd MD anesthetic field 10:40:33 Heparin Flush added 2 Kalyan Biggs used for Bag to bags Carson Byrd MD procedure (1000units/500ml field NS) 10:40:43 0.9% NaCl I.V. 100 Kalyan Buffie Per physician ml/hr Carson Mcghee RN 11:00:24 Versed I.V. 2 mg Kalyan Buffie for sedation Carson Mcghee RN 11:00:31 Fentanyl I.V. 100 Kalyan Buffie for sedation mcg Carson Mcghee RN 11:04:36 Versed I.V. 2 mg Kalyan Buffie for sedation Carson Mcghee RN 11:04:40 Fentanyl I.V. 100 Kalyan Buffie for sedation mcg Carson Mcghee RN 11:10:13 Versed I.V. 2 mg Kalyan Buffie for sedation Carson Mcghee RN 11:10:17 Fentanyl I.V. 100 Kalyan Buffie for sedation mcg Carson Mcghee RN 11:17:48 Versed I.V. 2 mg Kalyan Buffie for sedation Carson Mcghee RN 11:17:52 Fentanyl I.V. 100 Kalyan Buffie for sedation mcg Carson Mcghee RN 11:19:00 Heparin Bolus I.V. 4000 Kalyan Buffie for verifi ed units Carson Mcghee RN anticoagulation with dr byrd Procedure Log Time Note 10:07:57 Insurance Payor : Medicaid 10:08:17 Patient Height : 66 cm 10:08:25 Patient Weight : 171 kg 10:08:27 Arrival Date: 10/27/2016 12:00:00 AM 10:10:00 Farrah CROUCH(R) sent for patient. Start room use. 10:13:36 Lab Result : BUN 16 mg/dl 10:13:36 Lab Result : Hemoglobin 12.6 g/dl 10:13:36 Lab Result : Creatinine 0.7 mg/dl 10:14:43 Diagnostic Cath Status : Elective 10:16:07 Time tracking: Regular hours 10:16:12 Plan of Care:Hemodynamics will remain stable., Cardiac rhythm will remain stable., Comfort level will be maintained., Respiratory function will remain adequate., Patient/ family verbilizes understanding of procedure., Procedure tolerated without complication., Recovers from procedure without complications.. 10:20:46 Patient received from Pre/Post Procedure Room to CCL 1 Alert and oriented. Tansferred to table in Supine position. 10:20:47 Warm blankets applied, and temitope hugger turned on for patient comfort. 10:20:48 Correct patient and procedure confirmed by team. 10:20:50 Signed procedure consent form obtained from patient. 10:20:52 ECG and BP/O2 sat monitors applied to patient. 10:26:23 Vital chart was started 10::24 Baseline sample Acquired. 10::27 Rhythm: sinus rhythm 10::29 Full Disclosure recording started 10:26:48 H&P Date Dictated: 10/22/2016 Within 30 days and on chart., H&P Addendum completed by physician on day of procedure. (MUST COMPLETE FOR ALL OUTPATIENTS). 10:26:50 Pre-procedure instructions explained to patient. 10:26:50 Pre-op teaching completed and patient verbalized understanding. 10:26:51 Family in waiting room. 10:26:53 Patient NPO since Midnight. 10:26:59 Is the patient allergic to Iodine/contrast media? No. 10:27:00 Was the patient premedicated? No 10:27:01 Is patient on blood thinner?Yes 10:27:04 ACC The patient was administered the following blood thiners within the last 24 hours: ACCAspirin 10:27:07 Patient diabetic? Yes. 10:27:08 If diabetic: On Metformin? Yes 10:27:11 If on Metformin: Last Dose? 10/25/2016 10:27:26 Previous problem with sedation/anesthesia? No ? 10:27:27 Snore? Yes 10:27:28 Sleep apnea? No 10:27:29 Deviated septum? No 10:27:30 Opens mouth fully? Yes 10:27:31 Sticks out tongue? Yes 10:27:33 Airway obstruction? No ? 10:27:36 Dentures? No ? 10:27:39 Pre procedure: right dorsailis pedis pulse 1+ Palpable, but thready & weak; easily obliterated 10:27:43 Patient pain scale 0/10 ?. 10:27:51 IV patent on arrival in left forearm with 0.9% NaCl at [facility]. 10:27:55 Lab results completed and on chart. 10:28:09 Bilateral groins area was prepped with chlora-prep and draped in sterile fashion 10:28:10 Alarms reviewed by R. N. 10:28:10 Sharps counted by scrub and verified by R.N. 10:29:19 Admit Source: Other 10:39:13 Oxygen 2 l/min NC was administered by Reji Mcghee RN; used for procedure; 10:39:23 Lidocaine 2% 20ml vial added to field was administered by Kalyan Byrd MD; for local anesthetic; 10:40:33 Heparin Flush Bag (1000units/500ml NS) 2 bags added to field was administered by Kalyan Byrd MD; used for procedure; 10:40:43 0.9% NaCl 100 ml/hr I.V. was administered by Reji Mcghee RN; Per physician; 10:45:19 Zero performed for pressure channel P1 10:45:26 Zero performed for pressure channel P1 10:45:34 Zero performed for pressure channel P1 10:45:41 Zero performed for pressure channel P1 10:59:00 Physician arrived 10:59:01 --------ALL STOP TIME OUT------ 10:59:01 Final Timeout: patient, procedure, and site verified with staff and physician. All members of the team are in agreement. 10:59:05 Bilateral groins site verified by team. 10:59:08 Physical assessment completed. ASA score P 2 - A patient with mild systemic disease as per Kalyan Byrd MD. 10:59:13 Sedation plan: IV Moderate Sedation Versed, Fentanyl 11:00:24 Versed 2 mg I.V. was administered by Reji Mcghee RN; for sedation; 11:00:31 Fentanyl 100 mcg I.V. was administered by Reji Mcghee RN; for sedation; 11:01:07 Zero performed for pressure channel P1 11:01:56 Use device set Femoral Dx 11:01:57 Acist Syringe opened to sterile field. 11:01:58 Bag Decanter opened to sterile field. 11:01:58 Medline Cath Pack opened to sterile field. 11:01:59 Terumo 5Fr [place] Sheath opened to sterile field. 11:01:59 St Kyle 260cm J .035 wire opened to sterile field. 11:02:01 Acist Hand Control opened to sterile field. 11:02:01 Acist Manifold opened to sterile field. 11:02:02 Diagnostic Infinity 5Fr Multipack catheter opened to sterile field. 11:02:02 Tegaderm 4 x 4 opened to sterile field. 11:04:11 Procedure started. 11:04:14 Local anesthetic to right femoral artery with Lidocaine 2% by Kalyan Byrd MD.INITIAL ACCESS ONLY 11:04:36 Versed 2 mg I.V. was administered by Reji Mcghee RN; for sedation; 11:04:40 Fentanyl 100 mcg I.V. was administered by Reji Mcghee RN; for sedation; 11:07:20 A 5 Fr sheath was inserted into the Right Femoral artery 11:10:13 Versed 2 mg I.V. was administered by Reji Mcghee RN; for sedation; 11:10:17 Fentanyl 100 mcg I.V. was administered by Reji Mcghee RN; for sedation; 11:11:13 A Cordis 5Fr Pigtail Catheter (MP) was advanced over the wire and used for LV Angiography. 11:12:01 LV hemodynamics recorded. 11:12:03 LV gram done using BEGUM 11:12:06 Injector settings: Ml/sec: 5, Volume: 15, 11:12:15 EF : 60 % 11:12:22 Abdominal angiogram w/ runoff was performed. 11:12:30 Injector settings: Ml/sec: 10, Volume: 20, 11:13:37 Catheter removed. 11:13:47 A Cordis 5Fr JL 4.0 Catheter (MP) was advanced over the wire and used for Left Coronary Angiography. 11:14:49 LCA angiography performed. 11:14:52 Injector settings: Ml/sec: 3, Volume: 6, 11:15:22 Catheter removed. 11:15:26 A Cordis 5Fr 3DRC Catheter (MP) was advanced over the wire and used for Right Coronary Angiography. 11:15:48 Wick Whisper J 300cm 0.014 guide wire opened to sterile field. 11:15:48 CPXi BasixCompak Inflation Kit opened to sterile field. 11:15:49 Cordis 6FR XBLAD 3.5 guide catheter opened to sterile field. 11:15:50 Terumo 6Fr [place] Sheath opened to sterile field. 11:15:57 RCA angiography performed. 11:15:59 Injector settings: Ml/sec: 3, Volume: 6, 11:16:39 Catheter removed. unable to cannulate vessel. 11:16:59 A Diagnostic Infinity 5Fr AR 2 MOD catheter was advanced over the wire and used for Right Coronary Angiography. 11:17:19 RCA angiography performed. 11:17:48 Versed 2 mg I.V. was administered by Reji Mcghee RN; for sedation; 11:17:52 Fentanyl 100 mcg I.V. was administered by Reji Mcghee RN; for sedation; 11:18:06 Catheter removed. 11:18:19 Sheath upsized to a 6 Fr Short. 11:18:29 6 Fr xblad 3.5 guide catheter was inserted over the wire 11:18:35 whisper' wire advanced. 11:19:00 Heparin Bolus 4000 units I.V. was administered by Reji Mcghee RN; for anticoagulation; verified with dr byrd 11:20:31 Procedure type changed to Cath procedure, Diagnostic procedure, LHC, LHC w/Coronaries, PCI procedure, Coronary Stent Initial, Miscellaneous Procedures, Moderate Sedation up to 30 minutes, Peripheral Cath Diagnostic Procedure, Cath Peripheral, Pkihi-Ghhfokf-Ake-Off 11:21:16 Inflation number: 1 A [employer] [place] 2.5 X 15 balloon was prepped and advanced across the 1st Ob Valery, then inflated to 17 JESSICA for 0:10 (min:sec). 11:21:31 Balloon removed over the wire. 11:23:11 Inflation Number: 2 A Just Eattronic Resolute 3.0 X 15 stent was prepped and advanced across the 1st Ob Valery. The stent was deployed at 17 JESSICA for 0:09 (min:sec). 11:23:38 Stent catheter was removed intact over wire. 11:23:39 Wire removed. 11:23:39 Guide catheter removed. 11:23:48 Cordis 6Fr Exoseal opened to sterile field. 11:23:58 Sheath removed intact; hemostasis achieved with Exoseal to the Right Femoral artery. 11:24:00 Procedure ended.(Physican Out) 11:24:51 Fluoroscopy time 04.50 minutes. 11:24:54 Fluoroscopy dose: 908 mGy 11:24:54 Flurop Dose total: 908 11::58 Contrast amount:Isovue 370 125ml. 11:25:00 Sharps counted by scrub and verified by R.N. 11:25:01 Insertion/operative site no bleeding no hematoma. 11:25:04 Post-op/insertion site Right Femoral artery dressed using a 4 x 4 and Tegaderm. 11:25:07 Post right femoral artery:stable 11:25:08 Post Procedure Pulses reassessed and unchanged 11:25:11 Post procedure rhythm: unchanged. 11:25:14 Estimated blood loss: 5 ml 11:25:15 Post procedure instruction explained to patient.Patient verbalizes understanding. 11:25:15 Patient needs reinforcement of post procedure teaching. 11:25:16 Procedure and supply charges have been captured, reviewed, submitted and are correct. 11:25:21 Procedure Complication : No complications 11::23 Vital chart was stopped 11::23 See physician's report for complete and final results. 11:25:26 Report given to Pre/Post Procedure Room. 11:25:29 Patient transfered to Pre/Post Procedure Room with Stretcher. 11:25:36 Procedure ended. 11:25:36 Full Disclosure recording stopped 11:25:54 ACC-PCI Only Patient was given prescriptions, or instructed by Kalyan Byrd MD to start/continue the following medications upon discharge: Plavix 11:25:56 End room use (Document Last) Intervention Summary Intervention Notes Time ActionType Lesion and Equipment Action# Pressure Duration Attributes Used 11:21:16 Inflate 1st Ob Valery [place] 1 17 00:10 balloon Sci [place] 2.5 X 15 balloon 11:23:11 Place stent 1st Ob [facility] Medtronic 2 17 00:09 Resolute 3.0 X 15 stent Device Usage Item Name Manufacture Quantity Catalog Number Hospital Part Current Mini mal Lot# / Charge Number Stock Stock Serial# Code Acist Acist 1 10690 447640 603320 484630 20 Syringe Medical Systems Inc Bag Microtek 1 2002S 596478 17992 643408 5 Decanter Medical Inc. Medline Cardinal 1 [id number] 306469 34021 214599 5 Cath Pack Health Terumo 5Fr Terumo 1 [id number] 133280 598225 581619 [address] Kyle 1 575456 818010 813034 109674 30 260cm J .035 wire Acist Hand Acist 1 60243 377915 519124 342184 5 Control Medical Systems Inc Acist Acist 1 40623 276084 967262 973534 5 Manifold Medical Systems Inc Diagnostic Cardinal 1 [id number] 829784 12052 873280 30 [facility] 5Fr Multipack catheter Tegaderm 4 3M 1 1626W 394502 903772 705763 5 x 4 Cordis 5Fr Cardinal 1 218726 5 Pigtail Health Catheter (MP) Cordis 5Fr Cardinal 1 025985 5 JL 4.0 Health Catheter (MP) Cordis 5Fr Cardinal 1 791477 5 3DRC Health Catheter (MP) Wick Wick 1 [id number] 091537 179759 799412 5 Whisper J Vascular 300cm 0.014 guide wire Merit Merit 1 [id number] 543919 226994 766162 15 BasixCompak Medical Inflation Kit Cordis 6FR Cardinal 1 [id number] 089629 332572 513491 10 XBLAD 3.5 Health guide catheter Terumo 6Fr Terumo 1 [id number] 553640 903067 182181 40 [place] Sheath Diagnostic Cardinal 1 [id number] 553852 208145 633532 20 Infinity Health 5Fr AR 2 MOD catheter [place] Sci [place] 1 [id number] 266066 528420 326643 1 [id number] [employer] (SMB) Limited Scientific 2.5 X 15 balloon Medtronic Medtronic 1 [id number] 845164 647410 4 [id number] Resolute 3.0 X 15 stent Cordis 6Fr Cardinal 1 EX600 490384 916087 351050 10 Excela Health Blowout Boutique Signature Audit [place] Stage Time Signature Unsigned Intra-Procedure 10/27/2016 Monserrat Wilkerson 11:29:08 AM RT(R) Signatures Monitor : Monserrat Wilkerson RT Signature : Date : Time : [facility] [address] [place] [address]
[2016-10-27 08:26] VITALS: BP 144/77; Ht 162.6 cm; Wt 77.3 kg
[2016-10-27 08:47] LABS: BASOPHILS 0.2 % (0-2); EOSINOPHILS 1.4 % (0-7); HEMATOCRIT 38.5 % (36.0-48.0); HEMOGLOBIN 12.6 g/dL (12-16); IMMATURE GRANULOCYTES 0.2 % (0-5); LYMPHOCYTES 31.8 % (15-50); MCH 28.2 pg (26.0-34.0); MCHC 32.7 g/dL (31.0-37.0); MCV 86.1 fL (80.0-100.0); MEAN PLATELET VOLUME 10.8 fL (7.4-10.4); MONOCYTES 6.6 % (2-11); NEUTROPHILS 59.8 % (40-80); PLATELET COUNT 241 10x3/uL (130-400); RBC 4.47 10x6/uL (4.00-5.40); WBC 8.7 10x3/uL (4.8-10.8)
[2016-10-27 08:57] LABS: CALC OSMOLALITY 282 mosm/kg (275-300); CARBON DIOXIDE 26.4 mmol/L (21.0-32.0); CHLORIDE - SERUM 106 mmol/L (98-107); CREATININE - SERUM 0.7 mg/dL (0.6-1.3); POTASSIUM - SERUM 3.7 mmol/L (3.5-5.1); SODIUM 143 mmol/L (136-145); UREA NITROGEN 8 mg/dL (7-18); eGFR NON AFRICAN AMERICAN > 90 mL/min (90-120)
[2016-10-27 09:00] LABS: GLUCOSE 100 mg/dL (74-106)
--- NOTE | 2016-10-27 11:56 | NUR ---
1200-RIGHT GROIN CDI, NO HEMATOMA OR BLEEDING NOTED, SOFT TO TOUCH, C/O LEG PAIN-WHICH SHE HAD BEFORE PROCEDURE.
--- NOTE | 2016-10-27 13:31 | NUR ---
1230-NO CHANGES IN RIGHT GROIN,HOB UP 15 DEGREES FOR COMFORT
--- NOTE | 2016-10-27 15:00 | NUR ---
1330 NSR RATE 62 W NO C/O CHEST PAIN. PULSES PALP X 4. FAMILY AT BEDSIDE 1445 HOB ELEVATED TO 30DEGREES, WILL MONITOR R GROIN CLOSELY FOR CONTINUED BLEEDING.
--- NOTE | 2016-10-27 15:17 | NUR ---
LEFT FA PIV D/C'D WITH CATHETER INTACT, BAND AID TO SITE. UP TO BEDSIDE TO GET DRESSED.
--- NOTE | 2016-10-27 15:22 | NUR ---
UP TO RESTROOM TO VOID.
[2016-10-27] MEDS ORDERED: PLAVIX75 MG PO (15:24)
[2016-10-27] MEDS ORDERED: XANAX0.25 MG PO (15:24)
--- NOTE | 2016-10-27 15:26 | NUR ---
DISCHARGE INSTRUCTIONS GIVEN, VERBALIZED UNDERSTANDING. WRITTEN PRESCRIPTIONS FOR PLAVIX AND XANAX GIVEN.
--- NOTE | 2016-10-27 15:30 | NUR ---
TAKEN OUT VIA WHEELCHAIR BY CATH LATIN PROFESSOR. LEFT FACILITY WITH FAMILY MEMBER AND ALL PERSONAL BELONGINGS.
--- NOTE | 2016-10-29 08:06 | OP ---
PATIENT NAME: VIVIANA DELAROSA MEDICAL RECORD: [id number] :67 LOCATION:D.CAT ADMISSION DATE: SURGEON: ARMINDA TURPIN MD DATE OF OPERATION: 10/27/2016 PROCEDURES: 1. Abdominal aortography. 2. Aortofemoral runoff. INDICATION: Leg pain compatible with claudication. PROCEDURE IN DETAIL: After informed consent was obtained and after detailed explanation of risks, benefits as well as alternative therapies, the patient elected to proceed with angiogram and aortofemoral runoff. The right femoral artery had a preexisting sheath. All catheters exchanged through this sheath. FINDINGS: The abdominal aortography was performed. The catheter was pulled down for aortofemoral runoff. Abdominal aortography reveals no significant abdominal aortic disease. No dissection or aneurysm formation. RIGHT LEG: A. Iliac: The common internal and external iliacs have moderate irregularities, but no flow-limiting stenosis. B. Femoral system: The common superficial and deep femoral have moderate irregularities, but no flow-limiting stenosis. C. Popliteal and infrapopliteal vessels are widely patent with good 3-vessel runoff to the foot. LEFT LEG: A. Iliac: The common internal and external iliacs have moderate irregularities, but no flow-limiting stenosis. B. Femoral system: The common superficial and deep femoral have moderate irregularities, but no flow-limiting stenosis. C. Popliteal and infrapopliteal vessels are widely patent with good 3-vessel runoff to the foot. OVERALL IMPRESSION: No significant peripheral vascular disease is present. Leg pain is not due to arterial vascular insufficiency. TRANSINT:[id number] Voice Confirmation ID: [id number] DOCUMENT ID: [id number] ARMINDA TURPIN MD at 0806 CC: [id number] DICTATION DATE: 10/27/16 1129 GI ASST: 10/27/16 1345 DEP CLI 10/27/16 [place] [address]
--- NOTE | 2016-10-29 08:06 | OP ---
PATIENT NAME: VIVIANA DELAROSA MEDICAL RECORD: [id number] :67 LOCATION:D.CAT ADMISSION DATE: SURGEON: ARMINDA TURPIN MD DATE OF OPERATION: 10/27/2016 PROCEDURES: 1. PTCA stent left circumflex. 2. Left heart catheterization. 3. Selective coronary angiography. 4. Left ventriculogram. INDICATION: Angina and coronary artery disease. PROCEDURE IN DETAIL: After informed consent was obtained and after detailed explanation of risks, benefits as well as alternative therapies, the patient elected to proceed with angiogram and angioplasty. The right femoral area was prepped and draped in normal sterile fashion. The right femoral artery was cannulated via modified Seldinger technique with placement of 6-Persian sheath. All catheters exchanged through this sheath. FINDINGS: Left ventriculogram was performed in standard 30-degree BEGUM view, reveals good cardiac wall motion throughout all segments. Overall ejection fraction estimated at 60%. SELECTIVE CORONARY ANGIOGRAPHY: 1. Left main is with no significant angiographic disease. 2. Left anterior descending has previously placed stents, these are widely patent with no significant restenosis. No disease elsewise throughout the LAD or its branches. 3. Left circumflex has previously placed stent. The first obtuse marginal has an 80% in-stent restenosis. 4. The right coronary has previously placed stent at the ostium. This is widely patent with no disease elsewise throughout the RCA or its branches. PTCA STENT OF THE LEFT CIRCUMFLEX: The stent used was 3.0 x 15 mm Resolute. Result was 0% residual stenosis. OVERALL IMPRESSION: Successful percutaneous transluminal coronary angioplasty stent of the left circumflex going from 80% in-stent restenosis to 0% residual stenosis. TRANSINT:[id number] Voice Confirmation ID: [id number] DOCUMENT ID: [id number] ARMINDA TURPIN MD at 0806 CC: [id number] DICTATION DATE: 10/27/16 1129 BUSINESS UNIT CONTROLLER: 10/27/16 1341 DEP CLI 10/27/16 [place] [id number]
== END 2016-10-27 15:30 | disposition home or self-care (01) ==
LOC: D.CATH 08:09
PROVIDERS: Internal Medicine Interventional Cardiology
DX: I25.119 Atherosclerotic heart disease of native coronary artery with unspecified angina pectoris (principal); I70.219 Atherosclerosis of native arteries of extremities with intermittent claudication, unspecified extremity; I10 Essential (primary) hypertension; F17.200 Nicotine dependence, unspecified, uncomplicated

== ENCOUNTER 2016-12-30 15:26 | Observation (INO) | payer MEDICAID ==
[~2016-12-30] VITALS: Ht 162.6 cm; Wt 77.9 kg
[~2016-12-30 15:26] MED LIST changes: +XANAX0.25 MG PO
[2016-12-30 16:02] LABS: BASOPHILS 0.2 % (0-2); EOSINOPHILS 1.1 % (0-7); HEMATOCRIT 40.2 % (36.0-48.0); HEMOGLOBIN 13.2 g/dL (12-16); IMMATURE GRANULOCYTES 0.2 % (0-5); LYMPHOCYTES 23.6 % (15-50); MCH 27.8 pg (26.0-34.0); MCHC 32.8 g/dL (31.0-37.0); MCV 84.8 fL (80.0-100.0); MEAN PLATELET VOLUME 11.5 fL (7.4-10.4); MONOCYTES 6.1 % (2-11); NEUTROPHILS 68.8 % (40-80); PLATELET COUNT 232 10x3/uL (130-400); RBC 4.74 10x6/uL (4.00-5.40); RDW 14.1 % (11.5-14.5); WBC 9.2 10x3/uL (4.8-10.8)
[2016-12-30 16:34] LABS: ALBUMIN 3.8 g/dL (3.4-5.0); ALKALINE PHOSPHATASE 92 U/L (46-116); ALT (SGPT) 25 U/L (10-68); BILIRUBIN - TOTAL 0.28 mg/dL (0.2-1.3); CALC OSMOLALITY 272 mosm/kg (275-300); CALCIUM 9.1 mg/dL (8.5-10.1); CARBON DIOXIDE 22.7 mmol/L (21.0-32.0); CHLORIDE - SERUM 100 mmol/L (98-107); CREATININE - SERUM 0.8 mg/dL (0.6-1.3); GLUCOSE 115 mg/dL (74-106); POTASSIUM - SERUM 4.2 mmol/L (3.5-5.1); PROTEIN - SERUM 7.3 g/dL (6.4-8.2); SODIUM 136 mmol/L (136-145); UREA NITROGEN 12 mg/dL (7-18); eGFR NON AFRICAN AMERICAN 80 mL/min (90-120)
[2016-12-30 16:44] LABS: CHOLESTEROL, TOTAL 218 mg/dL (0-200); CREATINE KINASE 44 UL (21-215); HDL CHOLESTEROL 44 mg/dL (32-96); LDL CHOLESTEROL 141 mg/dL (0-100); LDL-HDL RATIO 3.2 ratio (1.5-3.5); TRIGLYCERIDE 167 mg/dL (30-200)
[2016-12-30 16:47] LABS: TROPONIN-I < 0.017 ng/mL (0.000-0.060)
[2016-12-30 18:59] LABS: APPEARANCE CLEAR (CLEAR); BILIRUBIN NEGATIVE (NEGATIVE); COLOR YELLOW (YELLOW); GLUCOSE NEGATIVE (NEGATIVE); KETONE NEGATIVE (NEGATIVE); LEUKOCYTE ESTERASE NEGATIVE (NEGATIVE); NITRITE NEGATIVE (NEGATIVE); PROTEIN NEGATIVE (NEGATIVE); SPECIFIC GRAVITY 1.005 (1.005-1.020); UROBILINOGEN NORMAL (NORMAL)
--- NOTE | 2016-12-30 19:23 | NUR ---
REPORT RECEIVED FROM KATTY COOK.
[2016-12-30] MEDS ORDERED: GLIMEPIRIDE1 MG PO (19:51)
--- NOTE | 2016-12-30 19:52 | NUR ---
ARRIVED TO FLOOR VIA WHEELCHAIR, ACCOMPANIED BY HOSPITAL STAFF AND FAMILY. PLACED ON TELEMETRY 89 SR. ORIENTED TO UNIT, CALL LIGHT IN REACH. WILL CONTINUE TO MONITOR. SEE NURSE ASSESSMENT.
[2016-12-30 20:18] VITALS: BP 123/90
[2016-12-30 23:21] VITALS: Ht 162.6 cm; Wt 77.9 kg
--- NOTE | 2016-12-31 00:18 | NUR ---
LYING IN BED, DAUGHTER AT BEDSIDE. CALL LIGHT IN REACH. WILL CONTINUE TO MONTIOR.
[2016-12-31 00:33] VITALS: BP 123/66
--- NOTE | 2016-12-31 03:31 | NUR ---
DILAUDID 1MG IVP FOR CHEST PAIN 8:10. WILL CONTINUE TO MONITOR. CALL LIGHT IN REACH.
[2016-12-31 05:08] VITALS: BP 100/54
--- NOTE | 2016-12-31 06:16 | NUR ---
NO CHANGES FROM PREVIOUS ASSESSMENT, NPO AT THIS TIME.
[2016-12-31] MEDS ORDERED: HYDROCODON-ACE1 EAC7 PO (10:11)
--- NOTE | 2016-12-31 10:12 | NUR ---
WRITTEN SCRIPT FOR NORCO 5/325 MG #20 1 BID WITH NO REFILLS GIVEN TO PATIENT. COPY OF SCRIPT PLACED IN CHART.
--- NOTE | 2016-12-31 10:24 | NUR ---
IV AND TELEMETRY DCD. DC PLANS GIVEN. UNDERSTANDING VOICED. LEAVING HOSP WITH DAUGHTER.
== END 2016-12-31 10:25 | disposition home or self-care (01) ==
LOC: D.ER 15:26 → OBSVTIME 18:59 → D.M2 18:59
PROVIDERS: Emergency Medicine; Nurse Practitioner Family; ADMIT Internal Medicine Interventional Cardiology
DX: I25.119 Atherosclerotic heart disease of native coronary artery with unspecified angina pectoris (principal); Z98.61 Coronary angioplasty status; E11.40 Type 2 diabetes mellitus with diabetic neuropathy, unspecified; I10 Essential (primary) hypertension; G89.29 Other chronic pain; F41.9 Anxiety disorder, unspecified; F32.9 Major depressive disorder, single episode, unspecified; Z72.0 Tobacco use

== ENCOUNTER 2017-03-15 20:10 | Emergency (ER) | payer MEDICAID ==
[2016-12-30 23:21] VITALS: BMI 27.5
[~2017-03-15 20:10] MED LIST changes: +GLIMEPIRIDE1 MG PO; +HYDROCODON-ACE1 EAC7 PO
[2017-03-15 21:22] LABS: BASOPHILS 0.2 % (0-2); EOSINOPHILS 0.8 % (0-7); HEMATOCRIT 39.9 % (36.0-48.0); HEMOGLOBIN 13.4 g/dL (12-16); IMMATURE GRANULOCYTES 0.2 % (0-5); LYMPHOCYTES 32.4 % (15-50); MCH 27.9 pg (26.0-34.0); MCHC 33.6 g/dL (31.0-37.0); MCV 83.1 fL (80.0-100.0); MEAN PLATELET VOLUME 11.4 fL (7.4-10.4); MONOCYTES 5.4 % (2-11); PLATELET COUNT 215 10x3/uL (130-400); RDW 14.5 % (11.5-14.5); WBC 9.7 10x3/uL (4.8-10.8)
[2017-03-15 21:40] LABS: ALBUMIN 3.8 g/dL (3.4-5.0); ALKALINE PHOSPHATASE 90 U/L (46-116); ALT (SGPT) 28 U/L (10-68); BILIRUBIN - TOTAL 0.24 mg/dL (0.2-1.3); CALC OSMOLALITY 277 mosm/kg (275-300); CALCIUM 9.1 mg/dL (8.5-10.1); CARBON DIOXIDE 21.6 mmol/L (21.0-32.0); CHLORIDE - SERUM 103 mmol/L (98-107); CREATININE - SERUM 0.9 mg/dL (0.6-1.3); GLUCOSE 99 mg/dL (74-106); POTASSIUM - SERUM 3.8 mmol/L (3.5-5.1); PROTEIN - SERUM 7.7 g/dL (6.4-8.2); SODIUM 139 mmol/L (136-145); UREA NITROGEN 12 mg/dL (7-18); eGFR NON AFRICAN AMERICAN 70 mL/min (90-120)
[2017-03-15 21:52] LABS: CHOL - HDL RATIO 5.8 ratio (2.3-4.1); CHOLESTEROL, TOTAL 214 mg/dL (0-200); CKMB 0.2 U/L (0.0-3.6); CREATINE KINASE 42 UL (21-215); HDL CHOLESTEROL 37 mg/dL (32-96); LDL CHOLESTEROL 105 mg/dL (0-100); LDL-HDL RATIO 2.8 ratio (1.5-3.5); PRO BNP 16 pg/mL (0-125); TRIGLYCERIDE 364 mg/dL (30-200); TROPONIN-I < 0.017 ng/mL (0.000-0.060)
== END 2017-03-16 01:30 | disposition home or self-care (01) ==
LOC: OBSVTIME → D.ER 20:10 → OBSVTIME 03-16 00:28 → D.M2 03-16 00:28 → D.ER 03-16 00:28
PROVIDERS: Emergency Medicine
DX: R07.9 Chest pain, unspecified (principal); I48.91 Unspecified atrial fibrillation; E11.9 Type 2 diabetes mellitus without complications; F17.200 Nicotine dependence, unspecified, uncomplicated

== ENCOUNTER 2017-03-29 16:11 | Emergency (ER) | payer MEDICAID ==
[2016-12-30 23:21] VITALS: BMI 27.5
== END 2017-03-29 21:20 | disposition home or self-care (01) ==
LOC: D.ER 16:11
DX: S39.012A Strain of muscle, fascia and tendon of lower back, initial encounter (principal); W01.0XXA Fall on same level from slipping, tripping and stumbling without subsequent striking against object, initial encounter; Y93.89 Activity, other specified; Y92.022 Bathroom in mobile home as the place of occurrence of the external cause; F17.200 Nicotine dependence, unspecified, uncomplicated

== ENCOUNTER 2017-04-25 16:12 | Observation (INO) | payer MEDICAID ==
--- NOTE | ~2017-04-25 | HEMODYNAMI ---
PATIENT:VIVIAAN DELAROSA MEDICAL RECORD: [id number] : 67 LOCATION:[address] ADMISSION DATE: 04/25/17 Generatedon:04/26/201712:25 Patient name: VIVIANA DELAROSA Patient #: [id number] SSN: [id number] : 1965 Date of study: 04/26/2017 Page: Of Hemodynamic Procedure Report Patient Data Patient Demographics Procedure consent was obtained First Name: VIVIANA Gender: Female Last Name: [place] : 1965 Patient #: [id number] Age: 51 year(s) Race: SSN: [id number] Additional ID: [id number] Contact details Address: [place] [address] State: [place] City: [place] Zip code: [address] Past Medical History History of disease Date Diagnosis Comments CAD Allergies Allergen Reaction Date Comments Reported Penicillins 09/07/2014 Morphine 09/07/2014 Other allergy 09/07/2014 steroids Penicillins 07/15/2016 Morphine 07/15/2016 Other allergy 04/26/2017 PCN, steroids, morphine Admission Admission Data Admission Date: 04/25/2017 Admission Time: 17:52 Room #: 2120 Procedure Procedure Types Cath Procedure Diagnostic Procedure [facility] w/Coronaries Miscellaneous Procedures Moderate Sedation up to 15 minutes Procedure Description Procedure Date Procedure Date: 04/26/2017 Procedure Start Time: 12:03 Procedure End Time: 12:20 Procedure Staff Name Function Gregorio Stone MD Performing Physician Cameron Leija RN Nurse Farrah Mehta RT Monitor Pankaj Pollack RT Scrub Procedure Data Cath Procedure Fluoroscopy Diagnostic fluoroscopy Total fluoroscopy dose: 543 dose: 543 mGy mGy Contrast Material Contrast Material Type Amount (ml) Isovue 300 84 Entry Location Entry Primary Successful Side Size Upsize Upsize Entry Closure Succes sful Closure Location (Fr) 1 (Fr) 2 (Fr) Remarks Device Remarks Femoral Right 5 Fr Exoseal artery Diagnostic catheters Device Type Used For End Catheter Placement Cordis 5Fr JL 4.0 Procedure Catheter (MP) Cordis 5Fr 3DRC Catheter Procedure (MP) Diagnostic Infinity 5Fr Procedure AR 1 MOD catheter Cordis 5Fr Pigtail Procedure Catheter (MP) Procedure Complications No complications Procedure Medications Medication Administration Route Dosage Oxygen NC 2 l/min Heparin Flush Bag added to field 2 bags (1000units/500ml NS) 0.9% NaCl I.V. 100 ml/hr Plavix P.O. 600 mg Fentanyl I.V. 50 mcg Versed I.V. 1 mg Fentanyl I.V. 50 mcg Versed I.V. 1 mg Fentanyl I.V. 50 mcg Versed I.V. 1 mg Fentanyl I.V. 50 mcg Versed I.V. 1 mg Fentanyl I.V. 50 mcg Fentanyl I.V. 50 mcg Hemodynamics Rest Heart Rate: 95 (bpm) Pressure Samples Time Site Value (mmHg) Purpose Heart Use Rate(bpm) 12:18 LV 150/-55,27 Snapshot 95 12:18 LV 142/24,25 Snapshot 97 12:18 AO 139/78(107) Pullback 93 Gradients Valve Time Site Site 2 Mean SEP/DFP Peak To Heart Use 1 (mmHg) (sec/min) Peak Rate (mmHg) (bpm) Aortic 12:18 LV AO 12 18 93 139/78(107) Calculations Valve P-P Mean Valve Index Valve Source Name Gradient Area Flow (cm2) Aortic 12 12 Snapshots Pre Cath Intra NCS Post Cath Vital Signs Time Heart Resp SPO2 etCO2 NIBP (mmHg) Rhythm Pain Sedation Rate (ipm) (%) (mmHg) Status Level (bpm) 11:47:33 68 18 100 0 145/83(122) NSR 0 (11) 10(A) , No pain 11:52:14 75 20 98 0 139/79(119) NSR 0 (11) 10(A) , No pain 11:56:50 74 16 99 0 138/77(114) NSR 0 (11) 10(A) , No pain 12:01:29 79 17 98 0 131/80(110) NSR 0 (11) 10(A) , No pain 12:06:05 82 17 98 0 122/77(96) NSR 0 (11) 10(A) , No pain 12:10:42 91 17 93 0 134/74(113) NSR 0 (11) 10(A) , No pain 12:15:18 97 18 87 0 135/91(124) NSR 0 (11) 9(A) , No pain 12:19:55 96 17 97 0 128/69(94) NSR 0 (11) 9(A) , No pain 12:24:54 97 12 96 0 Measuring NSR 0 (11) 9(A) , No pain 12:25:04 98 10 96 0 114/79(106) NSR 0 (11) 9(A) , No pain Medications Time Medication Route Dose Verified Delivered Reason Notes Ef fectiveness by by 11:50:09 Oxygen NC 2 Gregorio Cameron Per l/min [facility] Arnold Leija RN physician 11:50:18 Heparin Flush added 2 Gregorio Cameron used for Bag to bags [facility] Arnold Leija RN procedure (1000units/500ml field NS) 11:50:27 0.9% NaCl I.V. 100 Gregorio Cameron Per ml/hr [facility] Arnold Leija RN physician 11:51:13 Plavix P.O. 600 Gregorio Cameron for mg [facility] Arnold Leija RN antiplatelet MD therapy 11:56:07 Fentanyl I.V. 50 Gregorio Cameron for sedation [facility] Arnold Leija RN, MD 11:56:14 Versed I.V. 1 mg Gregorio Cameron for sedation [facility] Arnold Leija RN, MD 12:00:45 Fentanyl I.V. 50 Gregorio Cameron for sedation [facility] Arnold Leija RN, MD 12:00:48 Versed I.V. 1 mg Gregorio Cameron for sedation [facility] Arnold Leija RN, MD 12:04:23 Fentanyl I.V. 50 Gregorio Cameron for sedation mcg [facility] Arnold Leija RN, MD 12:04:27 Versed I.V. 1 mg Gregorio Cameron for sedation [facility] Arnold Leija RN, MD 12:05:58 Fentanyl I.V. 50 Gregorio Cameron for sedation mcg [facility] Arnold Leija RN, MD 12:06:02 Versed I.V. 1 mg Gregorio Cameron for sedation [facility] Arnold Leija RN, MD 12:08:26 Fentanyl I.V. 50 Gregorio Cameron for sedation [facility] Arnold Leija RN, MD 12:11:09 Fentanyl I.V. 50 Gregorio Cameron for sedation [facility] Arnold Leija RN, MD Procedure Log Time Note 11:21:34 Pankaj Pollack RT(R) sent for patient. Start room use. 11:21:35 Time tracking: Regular hours 11:21:40 Plan of Care:Hemodynamics will remain stable., Cardiac rhythm will remain stable., Comfort level will be maintained., Respiratory function will remain adequate., Patient/ family verbilizes understanding of procedure., Procedure tolerated without complication., Recovers from procedure without complications.. 11:32:46 Patient received from Med II to CCL 1 Alert and oriented. Tansferred to table in Supine position. 11:32:48 Warm blankets applied, and temitope hugger turned on for patient comfort. 11:32:49 Correct patient and procedure confirmed by team. 11:32:51 Signed procedure consent form obtained from patient. 11:33:03 H&P Date Dictated: 04/25/2017 Within 30 days and on chart.. 11:33:14 Pre-procedure instructions explained to patient. 11:33:17 Family in patients room. 11:33:19 Patient NPO since Midnight. 11:33:56 Patient allergic to Other allergyPCN, steroids, morphine 11:46:42 ECG and BP/O2 sat monitors applied to patient. 11:46:43 Vital chart was started 11:48:11 Is patient on blood thinner?Yes 11:48:16 ACC The patient was administered the following blood thiners within the last 24 hours: ACCPlavix 11:48:24 Patient diabetic? Yes. 11:48:26 If diabetic: On Metformin? Yes 11:48:32 If on Metformin: Last Dose? 04/25/2017 11:48:37 Snore? Yes 11:48:42 Sleep apnea? No 11:48:48 Dentures? No ? 11:48:58 IV patent on arrival in right hand with 0.9% NaCl at [facility]. 11:49:03 Lab results completed and on chart. 11:49:13 Right groin area was prepped with chlora-prep and draped in sterile fashion 11:49:16 Sharps counted by scrub and verified by R.N. 11:49:17 Physician paged 11:49:22 Physician arrived 11:49:27 --------ALL STOP TIME OUT------ 11:49:28 Final Timeout: patient, procedure, and site verified with staff and physician. All members of the team are in agreement. 11:49:30 Right groin site verified by team. 11:49:35 Sedation plan: IV Moderate Sedation Versed, Fentanyl 11:50:09 Oxygen 2 l/min NC was administered by Cameron Leija RN; Per physician; 11:50:18 Heparin Flush Bag (1000units/500ml NS) 2 bags added to field was administered by Cameron Leija RN; used for procedure; 11:50:27 0.9% NaCl 100 ml/hr I.V. was administered by Cameron Leija RN; Per physician; 11:51:13 Plavix 600 mg P.O. was administered by Cameron Leija RN; for antiplatelet therapy; :55:54 Procedure started. 11:55:54 Full Disclosure recording started 11:56:01 Use device set Femoral Dx 11:56:07 Fentanyl 50 mcg I.V. was administered by Cameron Leija RN; for sedation; 11:56:14 Versed 1 mg I.V. was administered by Cameron Leija RN; for sedation; 12:00:11 Acist Syringe opened to sterile field. 12:00:11 Bag Decanter opened to sterile field. 12:00:12 Medline Cath Pack opened to sterile field. 12:00:12 Terumo 5Fr Kossuth Sheath opened to sterile field. 12:00:13 St Kyle 260cm J .035 wire opened to sterile field. 12:00:14 Acist Hand Control opened to sterile field. 12:00:15 Acist Manifold opened to sterile field. 12:00:15 Diagnostic Infinity 5Fr Multipack catheter opened to sterile field. 12:00:16 Tegaderm 4 x 4 opened to sterile field. 12:00:45 Fentanyl 50 mcg I.V. was administered by Cameron Leija RN; for sedation; 12:00:48 Versed 1 mg I.V. was administered by Cameron Leija RN; for sedation; 12:03:11 Local anesthetic to right femoral artery with Lidocaine 2% by Gregorio Stone MD.INITIAL ACCESS ONLY 12:03:44 A 5 Fr sheath was inserted into the Right Femoral artery 12:04:23 Fentanyl 50 mcg I.V. was administered by Cameron Leija RN; for sedation; 12:04:27 Versed 1 mg I.V. was administered by Cameron Leija RN; for sedation; 12:05:58 Fentanyl 50 mcg I.V. was administered by Cameron Leija RN; for sedation; 12:06:02 Versed 1 mg I.V. was administered by Cameron Leija RN; for sedation; 12:08:26 Fentanyl 50 mcg I.V. was administered by Cameron Leija RN; for sedation; 12:11:09 Fentanyl 50 mcg I.V. was administered by Cameron Leija RN; for sedation; 12:11:13 A Cordis 5Fr JL 4.0 Catheter (MP) was advanced over the wire and used for Procedure. 12:14:23 Catheter removed. 12:14:33 A Cordis 5Fr 3DRC Catheter (MP) was advanced over the wire and used for Procedure. 12:15:28 Catheter removed. 12:17:28 A Diagnostic Infinity 5Fr AR 1 MOD catheter was advanced over the wire and used for Procedure. 12:17:39 RCA angiography performed. 12:17:40 Catheter removed. 12:17:50 A Cordis 5Fr Pigtail Catheter (MP) was advanced over the wire and used for Procedure. 12:17:54 LV gram done using BEGUM 12:18:43 Cordis 5Fr Exoseal opened to sterile field. 12:19:00 Catheter removed. 12:19:18 Sheath removed intact; hemostasis achieved with Exoseal to the Right Femoral artery. 12:19:22 Procedure ended.(Physican Out) 12:19:34 Fluoroscopy dose: 543 mGy 12:19:34 Flurop Dose total: 543 12:19:39 Contrast amount:Isovue 300 84ml. 12:19:42 Sharps counted by scrub and verified by R.N. 12:19:47 Insertion/operative site no bleeding no hematoma. 12:20:06 Post Procedure Pulses reassessed and unchanged 12:20:09 Post procedure instruction explained to patient.Patient verbalizes understanding. 12:20:11 Post procedure instruction explained to patient.Patient verbalizes understanding. 12:20:15 Procedure and supply charges have been captured, reviewed, submitted and are correct. 12:20:33 Procedure Complication : No complications 12:20:38 See physician's report for complete and final results. 12:20:45 Report given to Med II. 12:20:56 Procedure ended. 12:20:56 Full Disclosure recording stopped 12:21:01 End room use (Document Last) 12:25:48 Vital chart was stopped Device Usage Item Name Manufacture Quantity Catalog Hospital Part Current Minimal Lo t# / Number Charge Number Stock Stock Serial# Code Acist Acist 1 27346 100129 111833 731662 20 Syringe [employer] Inc Bag Microtek 1 2002S 903325 75804 574950 5 Decanter [employer] Inc[employer] Medline Cardinal 1 [id number] 411963 92936 714713 5 Cath Pack Health Terumo 5Fr Terumo 1 [id number] 978066 482315 076595 [address] Kyle 1 921021 716692 589174 628528 30 260cm J .035 wire Acist Hand Acist 1 44793 111835 853227 713544 5 Control [employer] Inc Acist Acist 1 60500 345706 897011 077735 5 Manifold Medical [employer] Inc Diagnostic Cardinal 1 BE0684 325819 76033 306157 30 Infinity Health 5Fr Multipack catheter Tegaderm 4 3M 1 1626W 059338 820159 392207 5 x 4 Cordis 5Fr Cardinal 1 539834 5 JL 4.0 Health Catheter (MP) Cordis 5Fr Cardinal 1 302685 5 3DRC Health Catheter (MP) Diagnostic Cardinal 1 [id number] 174858 507375 920562 15 Infinity Health 5Fr AR 1 MOD catheter Cordis 5Fr Cardinal 1 075884 5 Pigtail Health Catheter (MP) Cordis 5Fr Cardinal 1 EX500 617563 300593 623500 10 [facility] Modanisa Signature Audit [place] Stage Time Signature Unsigned Intra-Procedure 04/26/2017 Farrah Mehta 12:25:45 PM RT(R) Signatures Monitor : Farrah Mehta Signature : RT Date : Time : [address] [place] [address]
[2017-04-25 17:03] LABS: BASOPHILS 0.2 % (0-2); EOSINOPHILS 1.1 % (0-7); HEMATOCRIT 40.5 % (36.0-48.0); HEMOGLOBIN 13.5 g/dL (12-16); IMMATURE GRANULOCYTES 0.2 % (0-5); LYMPHOCYTES 25.2 % (15-50); MCH 28.4 pg (26.0-34.0); MCHC 33.3 g/dL (31.0-37.0); MCV 85.1 fL (80.0-100.0); MEAN PLATELET VOLUME 11.4 fL (7.4-10.4); MONOCYTES 4.8 % (2-11); NEUTROPHILS 68.5 % (40-80); PLATELET COUNT 220 10x3/uL (130-400); RBC 4.76 10x6/uL (4.00-5.40); RDW 14.7 % (11.5-14.5); WBC 9.9 10x3/uL (4.8-10.8)
[2017-04-25 17:15] LABS: APPEARANCE HAZY (CLEAR); BILIRUBIN NEGATIVE (NEGATIVE); COLOR STRAW (YELLOW); GLUCOSE 50 mg/dL (NEGATIVE); KETONE NEGATIVE (NEGATIVE); NITRITE NEGATIVE (NEGATIVE); PROTEIN NEGATIVE (NEGATIVE); UROBILINOGEN NORMAL (NORMAL)
[2017-04-25 17:21] LABS: ALBUMIN 3.7 g/dL (3.4-5.0); ALKALINE PHOSPHATASE 91 U/L (46-116); ALT (SGPT) 30 U/L (10-68); BILIRUBIN - TOTAL 0.42 mg/dL (0.2-1.3); CALC OSMOLALITY 284 mosm/kg (275-300); CALCIUM 9.3 mg/dL (8.5-10.1); CARBON DIOXIDE 23.5 mmol/L (21.0-32.0); CHLORIDE - SERUM 105 mmol/L (98-107); CREATININE - SERUM 0.8 mg/dL (0.6-1.3); GLUCOSE 213 mg/dL (74-106); POTASSIUM - SERUM 5.6 mmol/L (3.5-5.1); PROTEIN - SERUM 7.9 g/dL (6.4-8.2); SODIUM 139 mmol/L (136-145); UREA NITROGEN 14 mg/dL (7-18); eGFR NON AFRICAN AMERICAN 80 mL/min (90-120)
[2017-04-25 17:31] LABS: CHOL - HDL RATIO 5.3 ratio (2.3-4.1); CHOLESTEROL, TOTAL 218 mg/dL (0-200); CKMB 0.4 U/L (0.0-3.6); CREATINE KINASE 106 UL (21-215); HDL CHOLESTEROL 41 mg/dL (32-96); LDL CHOLESTEROL 123 mg/dL (0-100); TRIGLYCERIDE 270 mg/dL (30-200)
[2017-04-25 17:33] LABS: TROPONIN-I < 0.017 ng/mL (0.000-0.060)
[2017-04-25 18:17] LABS: CREATINE KINASE 42 UL (21-215); TROPONIN-I < 0.017 ng/mL (0.000-0.060)
--- NOTE | 2017-04-25 19:40 | NUR ---
ARRIVED TO FLOOR VIA WHEELCHAIR, ACCOMPANIED BY HOSPITAL STAFF. ORIENTED TO UNIT AND PLACED ON TELEMETRY. PLAN OF CARE DISCUSSED. RIGHT HAND SALINE LOCKED. CALL LIGHT IN REACH. WILL CONTINUE TO MONITOR. SEE NURSE ASSESSMENT.
[2017-04-25] MEDS ORDERED: CHANTIX 1 MG TAB1 MG PO (20:19)
[2017-04-25] MEDS ORDERED: RANEXA500 MG PO (20:20)
[2017-04-25 22:19] VITALS: BP 133/77
--- NOTE | 2017-04-26 01:19 | NUR ---
AMBULATING HALLWAY, NO NEEDS AT THIS TIME.
[2017-04-26 01:25] VITALS: BP 110/75
[2017-04-26 01:25] LABS: CKMB 0.4 U/L (0.0-3.6); CREATINE KINASE 39 UL (21-215); TROPONIN-I < 0.017 ng/mL (0.000-0.060)
--- NOTE | 2017-04-26 02:18 | NUR ---
DILAUDID 1MG IVP FOR CHEST PAIN 7:10. WILL CONTINUE TO MONITOR.
[2017-04-26 05:39] VITALS: BP 118/57
[2017-04-26 06:22] LABS: CKMB 0.5 U/L (0.0-3.6); CREATINE KINASE 44 UL (21-215); TROPONIN-I < 0.017 ng/mL (0.000-0.060)
--- NOTE | 2017-04-26 07:30 | NUR ---
RESTING QUIETLY EYES CLOSED RESP UNLABORED NAD NOTED
[2017-04-26 08:00] VITALS: BP 132/76
--- NOTE | 2017-04-26 08:00 | NUR ---
ASSESSMENT COMPLETED. TELEMERTY SHOW SR 76. RIGHT HAND SL. DENIES ANY CHEST PAIN AT PRESENT TIME, UP AB STAN. NPO FOR CATH
[2017-04-26 10:01] LABS: BASOPHILS 0.8 % (0-2); EOSINOPHILS 2.2 % (0-7); HEMATOCRIT 40.7 % (36.0-48.0); HEMOGLOBIN 13.2 g/dL (12-16); IMMATURE GRANULOCYTES 0.1 % (0-5); LYMPHOCYTES 46.7 % (15-50); MCH 28.4 pg (26.0-34.0); MCHC 32.4 g/dL (31.0-37.0); MONOCYTES 7.3 % (2-11); NEUTROPHILS 42.9 % (40-80); PLATELET COUNT 237 10x3/uL (130-400); RBC 4.65 10x6/uL (4.00-5.40); RDW 14.8 % (11.5-14.5); WBC 7.8 10x3/uL (4.8-10.8)
[2017-04-26 10:02] LABS: MCV 87.5 fL (80.0-100.0)
[2017-04-26 10:06] LABS: CALC OSMOLALITY 285 mosm/kg (275-300); CALCIUM 9.2 mg/dL (8.5-10.1); CARBON DIOXIDE 30.5 mmol/L (21.0-32.0); CHLORIDE - SERUM 104 mmol/L (98-107); CREATININE - SERUM 0.9 mg/dL (0.6-1.3); GLUCOSE 140 mg/dL (74-106); POTASSIUM - SERUM 4.2 mmol/L (3.5-5.1); SODIUM 142 mmol/L (136-145); UREA NITROGEN 14 mg/dL (7-18); eGFR NON AFRICAN AMERICAN 70 mL/min (90-120)
--- NOTE | 2017-04-26 10:50 | NUR ---
PT TO MANAGER INFUSION
--- NOTE | 2017-04-26 11:15 | NUR ---
BACK TO ROOM. V/SSTABLE. RIGHT GROIN SOFT WITH DRSG DRY AND INTACT. PPP. DENIES ANY NEEDS. WILL MONITOR
[2017-04-26 12:00] VITALS: BP 133/76
--- NOTE | 2017-04-26 12:21 | HP ---
PATIENT: VIVIANA DELAROSA MEDICAL RECORD: [id number] ACCOUNT: [id number] LOCATION:[address] : 67 ADMISSION DATE: 04/25/17 HISTORY AND PHYSICAL EXAMINATION HISTORY OF PRESENT ILLNESS: A 51-year-old female status post multiple interventions, longstanding smoking history, unfortunately continues to smoke, as well as diabetes, admitted with chest pain reminiscent of previous angina. No relief with nitroglycerin. She has been tried on long-acting nitrates, calcium channel blockers in the past, prompt relief with Dilaudid. We are asked to see her regarding cardiovascular status. PAST MEDICAL HISTORY: Includes: 1. History of hypertension. 2. Diabetes mellitus. 3. Dyslipidemia. 4. Coronary artery disease as described above. ALLERGIES: PENICILLIN AND MORPHINE. MEDICATIONS: Include Plavix 75 every day, Zetia 10 every day, Ranexa unknown dose b.i.d., alprazolam 0.25 b.i.d., aspirin 325 every day, Neurontin 300 mg t.i.d., Protonix 40 every day, Amaryl 2 mg daily, glyburide 5 mg daily, and metformin 1 gram b.i.d. REVIEW OF SYSTEMS: The patient reports easy bruising but reports no swollen glands. The patient reports no fever, no night sweats, no significant weight gain, no significant weight loss. No significant exercise tolerance. The patient reports no dry eyes, no irritation, no vision change. Patient reports no difficulty hearing and no ear pain. Patient reports no frequent nose bleeds or nose and sinus problems. Patient reports on arm pain on exertion. No shortness of breath while lying down. No history of heart murmur. Patient reports no cough, no wheezing or coughing up blood. Patient reports no abdominal pain, no vomiting. Normal appetite. No diarrhea and not vomiting blood. No nausea and no constipation. Patient reports no incontinence. No difficulty urinating. No hematuria. No increased frequency. Patient reports no muscle aches. No weakness, no arthralgias, no back pain. No swelling of the extremities. Patient reports no abnormal mole, no jaundice, no rashes. Reports no loss of consciousness. No weakness and no numbness. No seizures, dizziness, or headaches. The patient reports no depression, no sleep disturbance, feeling safe in a relationship and no alcohol abuse. Patient reports on fatigue. Reports no runny nose or sinus pressure. No itching, no hives, and no frequent sneezing. SOCIAL HISTORY: , lives here in [place]. She is a nondrinker, continues to smoke. She is able to take care of her ADLs. PHYSICAL EXAMINATION: GENERAL: Middle-aged female appears older than stated age. VITAL SIGNS: Blood pressure 132/76, pulse 66 regular. HEENT: Normocephalic, atraumatic. NECK: No JVD or bruit. HEART: Regular. LUNGS: Zaidi clear. ABDOMEN: Soft, nontender. HISTORY AND PHYSICAL [id number] LUSTER,KATHALINE EXTREMITIES: Pulses 2+. No edema. DIAGNOSTIC DATA: ECG without acute change. IMPRESSION: Recurrent chest pain/ angina well within window for restenosis from a bare metal stent. PLAN: For diagnostic angiography, intervention based on the above. TRANSINT:[id number] Voice Confirmation ID: [id number] DOCUMENT ID: [id number] FERDINAND SCHMITT MD at 1221 CC: [id number] DICTATION DATE: 04/26/17 1014 BRASS RECLAIMER: 04/26/17 1027 ADM IN [facility] [address] [place] [address]
--- NOTE | 2017-04-26 14:50 | NUR ---
LYING QUIETLY WITH EYES CLOSED. V/S STABLE, RIGHT GROIN SOFT WITH DRSG DRY AND INTACT. PPP. CALL LIGHT IN REACH WITH SR UP. WILL MONITOR
--- NOTE | 2017-04-26 16:43 | NUR ---
DISCHARGED . IV DCD WITH TIP INTACT.. INSTRUCTIONS GIVEN. TO PRIVATE CAR PER WHEEL CHAIR
--- NOTE | 2017-04-27 11:08 | OP ---
PATIENT NAME: VIVIANA DELAROSA MEDICAL RECORD: [id number] :67 LOCATION:D.M2 D.0 ADMISSION DATE:04/25/17 SURGEON: FERDINAND SCHMITT MD DATE OF OPERATION: 04/26/2017 PROCEDURE: Left heart catheterization, selective coronary angiography, right femoral approach. CATHETERS: A 5-[place] sheath, 5/4 left and right Rafael, 5/4 pig. The procedure was well tolerated and the patient returned to the bar, sheath removed. ExoSeal device placed. FINDINGS: Left ventriculography in 30-degree BEGUM view: Normal wall motion, normal systolic function. CORONARY ANATOMY: LEFT MAIN: Left main is free of disease. LAD: An area of previous stenting is widely patent throughout its course, stent is actually oversized. CIRCUMFLEX: Left dominant system, free of disease. RIGHT CORONARY ARTERY: Rudimentary, free of disease. IMPRESSION: No evidence of restenosis. Normal left ventricular function. TRANSINT:[id number] Voice Confirmation ID: [id number] DOCUMENT ID: [id number] FERDINAND SCHMITT MD at 1108 CC: [id number] DICTATION DATE: 04/26/17 1226 ENGINEERING DOCUMENT CONTROL CLERK: 04/26/17 1415 DIS IN 04/26/17 [id number] [place] [address]
--- NOTE | 2017-05-23 10:01 | DS ---
PATIENT:VIVIANA DELAROSA :67 MEDICAL RECORD: [id number] DISCHARGE SUMMARY ADMISSION DATE: 04/25/17 DISCHARGE DATE: 04/26/17 DATE OF ADMISSION: 04/25/2017. DATE OF DISCHARGE: 04/26/2017. IMPRESSION: 1. Chest pain. 2. Known history of coronary artery disease, status post stenting. 3. Diabetes mellitus. 4. Hypertension. 5. Dyslipidemia. BRIEF HISTORY AND HOSPITAL COURSE: Admitted with chest pain on admission of her angina, underwent diagnostic angiography, which showed no progression of apache disease and no evidence of restenosis, normal LV function. She was discharged home in good condition. MEDICATIONS: As per admission. DIET: An 1800 calorie, AHA diet. ACTIVITY: As tolerated. Keep regular scheduled followup in the office. TRANSINT:[id number] Voice Confirmation ID: [id number] DOCUMENT ID: [id number] FERDINAND SCHMITT MD at 1001 CC: [id number] DICTATION DATE: 05/21/17 1357 NUCLEAR EQUIPMENT SALES ENGINEER: 05/21/17 1516 DIS IN 04/26/17 [address] [place] [address]
== END 2017-04-26 17:40 | disposition home or self-care (01) ==
LOC: D.ER 16:12 → D.M2 17:52 → OBSVTIME 17:52 → D.M2 04-26 17:40
PROVIDERS: Family Medicine; ADMIT Internal Medicine Interventional Cardiology
DX: R07.89 Other chest pain (principal); I25.10 Atherosclerotic heart disease of native coronary artery without angina pectoris; I10 Essential (primary) hypertension; Z95.5 Presence of coronary angioplasty implant and graft; E11.9 Type 2 diabetes mellitus without complications; E78.5 Hyperlipidemia, unspecified

== ENCOUNTER 2017-07-11 22:55 | Emergency (ER) | payer MEDICAID ==
[~2017-07-11 22:55] MED LIST changes: +RANEXA500 MG PO
[2017-07-11 23:44] LABS: BASOPHILS 0.2 % (0-2); EOSINOPHILS 1.9 % (0-7); HEMATOCRIT 41.4 % (36.0-48.0); HEMOGLOBIN 14.1 g/dL (12-16); IMMATURE GRANULOCYTES 0.1 % (0-5); LYMPHOCYTES 40.5 % (15-50); MCHC 34.1 g/dL (31.0-37.0); MEAN PLATELET VOLUME 11.3 fL (7.4-10.4); NEUTROPHILS 52.3 % (40-80); PLATELET COUNT 240 10x3/uL (130-400); RBC 4.87 10x6/uL (4.00-5.40); RDW 13.7 % (11.5-14.5); WBC 9.6 10x3/uL (4.8-10.8)
[2017-07-12] LABS: ALKALINE PHOSPHATASE 96 U/L (46-116); ALT (SGPT) 26 U/L (10-68); BILIRUBIN - TOTAL 0.24 mg/dL (0.2-1.3); CALC OSMOLALITY 281 mosm/kg (275-300); CALCIUM 9.7 mg/dL (8.5-10.1); CARBON DIOXIDE 23.6 mmol/L (21.0-32.0); CHLORIDE - SERUM 101 mmol/L (98-107); CREATININE - SERUM 0.9 mg/dL (0.6-1.3); POTASSIUM - SERUM 4.2 mmol/L (3.5-5.1); PROTEIN - SERUM 7.6 g/dL (6.4-8.2); SODIUM 138 mmol/L (136-145); UREA NITROGEN 16 mg/dL (7-18); eGFR NON AFRICAN AMERICAN 70 mL/min (90-120)
[2017-07-12 00:04] LABS: GLUCOSE 195 mg/dL (74-106)
[2017-07-12 00:11] LABS: CHOL - HDL RATIO 6.1 ratio (2.3-4.1); CHOLESTEROL, TOTAL 263 mg/dL (0-200); CKMB 0.3 U/L (0.0-3.6); CREATINE KINASE 30 UL (21-215); HDL CHOLESTEROL 43 mg/dL (32-96); LDL CHOLESTEROL 167 mg/dL (0-100); LDL-HDL RATIO 3.9 ratio (1.5-3.5); TRIGLYCERIDE 266 mg/dL (30-200); TROPONIN-I < 0.017 ng/mL (0.000-0.060)
== END 2017-07-12 01:00 | disposition home or self-care (01) ==
LOC: D.ER 22:55
PROVIDERS: Family Medicine
DX: R07.89 Other chest pain (principal); R07.9 Chest pain, unspecified; E11.9 Type 2 diabetes mellitus without complications; F17.200 Nicotine dependence, unspecified, uncomplicated

== ENCOUNTER 2017-08-02 18:31 | Observation (INO) | payer MEDICAID ==
[~2017-08-02] VITALS: Ht 162.6 cm; Wt 75.5 kg
--- NOTE | ~2017-08-02 | EC ---
PATIENT:VIVIANA DELAROSA DATE OF SERVICE: 08/02/17 SEX: F MEDICAL RECORD: [id number] DATE OF : 67 LOCATION:D.M2 D.213 AGE OF PATIENT: 51 ADMISSION DATE: 08/02/17 REFERRING PHYSICIAN: INTERPRETING PHYSICIAN: EZEKIEL العراقي MD ECHOCARDIOGRAM REPORT ECHO CHARGES 4 ECHO COMPLETE CLINICAL DIAGNOSIS: CP ECHOCARDIOGRAPHIC MEASUREMENTS (adult normal given) AC root (d.<3.7cm) 2.9 cm LV Septum d (<1.2 cm> 1.2 cm Valve Excursion 1.6 cm LV Septum (systole) 1.8 cm Left Atria (s.<4.0cm> 3.9 cm LVPW d(<1.2cm) 1.2 cm RV (d.<2.3cm) 3.0 cm LVPW (sytole) 2.0 cm LV diastole(<5.6CM) 5.6 cm MV E-F(>70mm/sec) cm LV systole 2.8 cm LVOT Diameter 1.7 cm MV exc.(>10mm) cm Est.ejection fraction (50-75%) % Pericardial Effusion N DOPPLER: LVIT cm/sec A 46.0 cm/sec E 92.0 cm/sec LA cm/sec RVSP 35.0 mmHg LVOT 100 cm/sec AOP1/2T m/s Asc. Ao 143 cm/sec RVOT 57.0 cm/sec RA cm/sec PA 89.0 cm/sec AV Gradient Peak 8.2 mmHg AV Mean 4.0 mmHg AV Area 1.4 cm MV Gradient Peak 4.2 mmHg MV Mean 1.4 mmHg MV Area cm COMMENTS: Photographic Process Attendant: Dawson JASSOOE Network Infrastructure Architect: Abena العراقي TAPE# PACS DATE OF SERVICE: 08/03/2017 PROCEDURE: Transthoracic echocardiogram. FINDINGS: 1. There is mild left ventricular hypertrophy, ejection fraction 65% to 70% and hyperdynamic. 2. The left atrium is normal. 3. The aortic valve is normal. 4. The right ventricle and right atrium are normal. ECHOCARDIOGRAM REPORT [id number] VIVIANA DELAROSA 5. The mitral valve is structurally normal with trace to mild mitral regurgitation. 6. Tricuspid valve has trace to mild tricuspid regurgitation, normal right ventricular systolic pressures. 7. The pericardium is normal. 8. Pulmonic valve is normal. CONCLUSIONS: The patient has evidence of mild hypertensive heart disease, normal to hyperdynamic left ventricular function without regional wall motion abnormalities. TRANSINT:[id number] Voice Confirmation ID: [id number] DOCUMENT ID: [id number] 08/06/2017 Edited to correct date of service, dmm. EZEKIEL العراقي MD at 0957 CC: [id number] DICTATION DATE: 08/04/17 1111 DIRECTOR OF RECRUITMENT: 08/04/17 1249 DIS IN 08/04/17 [id number] [place] [address]
--- NOTE | ~2017-08-02 | ST ---
PATIENT:VIVIANA DELAROSA MEDICAL RECORD: [id number] SEX: F LOCATION:[facility] D213 ORDER #: ADMISSION DATE: 08/02/17 AGE OF PATIENT: 51 REFERRING PHYSICIAN: INTERPRETING PHYSICIAN: EZEKIEL NOGUEIRA MD DATE OF SERVICE: 08/03/2017 PROCEDURE: Nuclear stress test with Lexiscan. INDICATIONS: Chest pain, history of coronary artery disease. DESCRIPTION OF PROCEDURE: The patient was brought into the nuclear lab, placed in supine position on the nuclear table. The patient then had Lexiscan administered via normal protocol. The patient tolerated the procedure. She did have mild flushing and mild shortness of breath, but no chest pain. Procedure was completed without complications. Sestamibi was used both at rest and stressed on the same day. At rest, 8.7 mCi of sestamibi was injected and at stress 26.5 mCi of sestamibi was injected. The gated imaging revealed an ejection fraction of 81%. There was good homogeneous uptake throughout. SPECT imaging reveals no areas of photopenia. There was no evidence of significant ischemia. IMPRESSION: In this patient with multivessel stenting in the past, there does not appear to be significant area of ischemia or infarction with good preserved LV systolic function. If the patient's symptoms persist without reasonable alternative explanation or adequate treatments, could consider further evaluation with angiography. TRANSINT:[id number] Voice Confirmation ID: [id number] DOCUMENT ID: [id number] 08/06/2017 Edited to correct date of service, dm. EZEKIEL NOGUEIRA MD at 0957 CC: [id number] DICTATION DATE: 08/04/17 0805 COVERAGE SPECIALIST: 08/04/17 1319 DIS IN 08/04/17 [facility] [address] [id number]
[2017-08-02 19:20] LABS: BASOPHILS 0.2 % (0-2); EOSINOPHILS 0.8 % (0-7); IMMATURE GRANULOCYTES 0.2 % (0-5); LYMPHOCYTES 21.1 % (15-50); MCH 28.6 pg (26.0-34.0); MCHC 33.3 g/dL (31.0-37.0); MCV 85.7 fL (80.0-100.0); MEAN PLATELET VOLUME 10.6 fL (7.4-10.4); MONOCYTES 5.1 % (2-11); NEUTROPHILS 72.6 % (40-80); PLATELET COUNT 257 10x3/uL (130-400); RBC 4.55 10x6/uL (4.00-5.40); RDW 13.9 % (11.5-14.5); WBC 11.6 10x3/uL (4.8-10.8)
[2017-08-02 19:45] LABS: ALBUMIN 3.5 g/dL (3.4-5.0); ALKALINE PHOSPHATASE 91 U/L (46-116); ALT (SGPT) 16 U/L (10-68); BILIRUBIN - TOTAL 0.32 mg/dL (0.2-1.3); CALC OSMOLALITY 284 mosm/kg (275-300); CARBON DIOXIDE 23.3 mmol/L (21.0-32.0); CHLORIDE - SERUM 105 mmol/L (98-107); CHOL - HDL RATIO 6.7 ratio (2.3-4.1); CHOLESTEROL, TOTAL 253 mg/dL (0-200); CKMB 0.6 U/L (0.0-3.6); CREATINE KINASE 24 UL (21-215); CREATININE - SERUM 0.8 mg/dL (0.6-1.3); GLUCOSE 209 mg/dL (74-106); HDL CHOLESTEROL 38 mg/dL (32-96); LDL CHOLESTEROL 167 mg/dL (0-100); LDL-HDL RATIO 4.4 ratio (1.5-3.5); POTASSIUM - SERUM 4.3 mmol/L (3.5-5.1); PROTEIN - SERUM 7.4 g/dL (6.4-8.2); SODIUM 141 mmol/L (136-145); TRIGLYCERIDE 241 mg/dL (30-200); UREA NITROGEN 8 mg/dL (7-18); eGFR NON AFRICAN AMERICAN 80 mL/min (90-120)
[2017-08-02 19:52] LABS: TROPONIN-I < 0.017 ng/mL (0.000-0.060)
[2017-08-02] MEDS ORDERED: KLONOPIN1 MG PO (23:05)
[2017-08-02] MEDS ORDERED: ULTRAM50 MG PO (23:05)
[2017-08-03 00:17] VITALS: Ht 162.6 cm; Wt 75.5 kg
[2017-08-03 01:03] VITALS: BP 128/75
[2017-08-03 04:54] VITALS: BP 122/64
[2017-08-03 07:39] VITALS: BP 142/73
[2017-08-03 15:59] VITALS: BP 150/75
[2017-08-03 19:00] VITALS: BP 111/60
[2017-08-04] VITALS: BP 139/73
[2017-08-04 04:00] VITALS: BP 120/53
[2017-08-04 06:25] LABS: BASOPHILS 0.3 % (0-2); HEMATOCRIT 39.1 % (36.0-48.0); HEMOGLOBIN 12.6 g/dL (12-16); IMMATURE GRANULOCYTES 0.3 % (0-5); MCH 28.2 pg (26.0-34.0); MCHC 32.2 g/dL (31.0-37.0); MCV 87.5 fL (80.0-100.0); MONOCYTES 6.8 % (2-11); NEUTROPHILS 41.6 % (40-80); PLATELET COUNT 259 10x3/uL (130-400); RBC 4.47 10x6/uL (4.00-5.40); RDW 13.7 % (11.5-14.5)
[2017-08-04 06:26] LABS: WBC 7.5 10x3/uL (4.8-10.8)
[2017-08-04 06:31] LABS: CALCIUM 8.7 mg/dL (8.5-10.1); CARBON DIOXIDE 28.9 mmol/L (21.0-32.0); CHLORIDE - SERUM 103 mmol/L (98-107); CREATININE - SERUM 0.8 mg/dL (0.6-1.3); POTASSIUM - SERUM 3.8 mmol/L (3.5-5.1); SODIUM 141 mmol/L (136-145); eGFR NON AFRICAN AMERICAN 80 mL/min (90-120)
[2017-08-04 06:32] LABS: CALC OSMOLALITY 282 mosm/kg (275-300); GLUCOSE 138 mg/dL (74-106); UREA NITROGEN 13 mg/dL (7-18)
[2017-08-04 08:06] VITALS: BP 111/64
[2017-08-04 12:39] VITALS: BP 119/88
[2017-08-04 15:55] VITALS: BP 148/65
== END 2017-08-04 17:37 | disposition home or self-care (01) ==
LOC: D.ER 18:31 → D.M2 21:19 → OBSVTIME 21:19 → D.M2 21:19
PROVIDERS: Family Medicine; Internal Medicine Nephrology
DX: R07.89 Other chest pain (principal); I25.10 Atherosclerotic heart disease of native coronary artery without angina pectoris; Z95.5 Presence of coronary angioplasty implant and graft; E11.40 Type 2 diabetes mellitus with diabetic neuropathy, unspecified; F17.203 Nicotine dependence unspecified, with withdrawal; K21.9 Gastro-esophageal reflux disease without esophagitis; E78.5 Hyperlipidemia, unspecified; I10 Essential (primary) hypertension; E03.9 Hypothyroidism, unspecified; J44.9 Chronic obstructive pulmonary disease, unspecified

== ENCOUNTER → 2017-08-18 16:47 | Outpatient (CLI) | payer MEDICAID ==
[~2017-08-18 16:47] MED LIST changes: +KLONOPIN1 MG PO; +ULTRAM50 MG PO
[2017-08-18 18:30] LABS: CHOL - HDL RATIO 6.4 ratio (2.3-4.1); LDL-HDL RATIO 3.5 ratio (1.5-3.5)
== END | disposition home or self-care (01) ==
LOC: D.LABREF 16:47
PROVIDERS: Internal Medicine Cardiovascular Disease
DX: E78.5 Hyperlipidemia, unspecified (principal); I25.10 Atherosclerotic heart disease of native coronary artery without angina pectoris

== ENCOUNTER 2017-09-06 18:02 | Emergency (ER) | payer MEDICAID ==
[2017-09-06 18:53] LABS: BASOPHILS 0.3 % (0-2); HEMATOCRIT 40.9 % (36.0-48.0); HEMOGLOBIN 13.8 g/dL (12-16); IMMATURE GRANULOCYTES 0.1 % (0-5); LYMPHOCYTES 27.9 % (15-50); MCHC 33.7 g/dL (31.0-37.0); MCV 85.9 fL (80.0-100.0); MEAN PLATELET VOLUME 11.3 fL (7.4-10.4); NEUTROPHILS 63.7 % (40-80); PLATELET COUNT 237 10x3/uL (130-400); RBC 4.76 10x6/uL (4.00-5.40); WBC 9.3 10x3/uL (4.8-10.8)
[2017-09-06 19:19] LABS: ALBUMIN 3.8 g/dL (3.4-5.0); ALKALINE PHOSPHATASE 95 U/L (46-116); ALT (SGPT) 24 U/L (10-68); BILIRUBIN - TOTAL 0.43 mg/dL (0.2-1.3); CARBON DIOXIDE 25.4 mmol/L (21.0-32.0); CHLORIDE - SERUM 102 mmol/L (98-107); CHOLESTEROL, TOTAL 133 mg/dL (0-200); CKMB 0.4 U/L (0.0-3.6); CREATINE KINASE 33 UL (21-215); CREATININE - SERUM 0.9 mg/dL (0.6-1.3); HDL CHOLESTEROL 33 mg/dL (32-96); LDL CHOLESTEROL 71 mg/dL (0-100); LDL-HDL RATIO 2.2 ratio (1.5-3.5); POTASSIUM - SERUM 4.3 mmol/L (3.5-5.1); PRO BNP 12 pg/mL (0-125); PROTEIN - SERUM 7.6 g/dL (6.4-8.2); SODIUM 135 mmol/L (136-145); TRIGLYCERIDE 145 mg/dL (30-200); UREA NITROGEN 9 mg/dL (7-18); eGFR NON AFRICAN AMERICAN 70 mL/min (90-120)
[2017-09-06 19:33] LABS: CALC OSMOLALITY 274 mosm/kg (275-300); CALCIUM 9.5 mg/dL (8.5-10.1); GLUCOSE 202 mg/dL (74-106); TROPONIN-I < 0.017 ng/mL (0.000-0.060)
[2017-09-06 22:58] LABS: CREATINE KINASE 38 UL (21-215)
[2017-09-06 23:02] LABS: TROPONIN-I < 0.017 ng/mL (0.000-0.060)
[2017-09-06 23:48] LABS: APPEARANCE HAZY (CLEAR); BACTERIA MANY /hpf (NONE SEEN); BILIRUBIN NEGATIVE (NEGATIVE); COLOR YELLOW (YELLOW); EPITHELIAL CELLS NSEEN /hpf (0-5); GLUCOSE NEGATIVE (NEGATIVE); KETONE NEGATIVE (NEGATIVE); NITRITE POSITIVE (NEGATIVE); PROTEIN NEGATIVE (NEGATIVE); RED CELLS - URINE NONE SEEN /hpf (0-5); SPECIFIC GRAVITY 1.015 (1.005-1.020); UROBILINOGEN NORMAL (NORMAL); WHITE CELLS - URINE 0-5 /hpf (0-5)
[2017-09-07 00:11] LABS: UDS - AMPHET NEGATIVE QUAL (NEGATIVE); UDS - BARB NEGATIVE QUAL (NEGATIVE); UDS - BENZO POSITIVE QUAL (NEGATIVE); UDS - COCAINE NEGATIVE QUAL (NEGATIVE); UDS - OPIATE NEGATIVE QUAL (NEGATIVE); UDS - PCP NEGATIVE QUAL (NEGATIVE); UDS - THC NEGATIVE QUAL (NEGATIVE)
== END 2017-09-07 01:02 | disposition home or self-care (01) ==
LOC: D.ER 18:02
PROVIDERS: Family Medicine; Nurse Practitioner Family
DX: R07.9 Chest pain, unspecified (principal); N39.0 Urinary tract infection, site not specified; K21.9 Gastro-esophageal reflux disease without esophagitis; E11.9 Type 2 diabetes mellitus without complications

== ENCOUNTER 2017-09-21 19:32 | Observation (INO) | payer MEDICAID ==
[~2017-09-21] VITALS: Ht 162.6 cm; Wt 72.8 kg
[2017-09-21 21:28] LABS: BASOPHILS 0.2 % (0-2); EOSINOPHILS 0.7 % (0-7); HEMATOCRIT 40.8 % (36.0-48.0); HEMOGLOBIN 13.7 g/dL (12-16); IMMATURE GRANULOCYTES 0.2 % (0-5); LYMPHOCYTES 32.7 % (15-50); MCH 28.7 pg (26.0-34.0); MCHC 33.6 g/dL (31.0-37.0); MCV 85.5 fL (80.0-100.0); MEAN PLATELET VOLUME 11.4 fL (7.4-10.4); MONOCYTES 5.1 % (2-11); NEUTROPHILS 61.1 % (40-80); PLATELET COUNT 202 10x3/uL (130-400); RBC 4.77 10x6/uL (4.00-5.40); RDW 13.8 % (11.5-14.5); WBC 9.4 10x3/uL (4.8-10.8)
[2017-09-21 21:50] LABS: ALBUMIN 3.8 g/dL (3.4-5.0); ALKALINE PHOSPHATASE 99 U/L (46-116); ALT (SGPT) 22 U/L (10-68); BILIRUBIN - TOTAL 0.41 mg/dL (0.2-1.3); CALCIUM 9.1 mg/dL (8.5-10.1); CARBON DIOXIDE 23.9 mmol/L (21.0-32.0); CHLORIDE - SERUM 101 mmol/L (98-107); CREATININE - SERUM 0.7 mg/dL (0.6-1.3); POTASSIUM - SERUM 3.9 mmol/L (3.5-5.1); PROTEIN - SERUM 7.8 g/dL (6.4-8.2); SODIUM 136 mmol/L (136-145); UREA NITROGEN 11 mg/dL (7-18); eGFR NON AFRICAN AMERICAN > 90 mL/min (90-120)
[2017-09-21 21:54] LABS: CREATINE KINASE 25 UL (21-215); PRO BNP 25 pg/mL (0-125)
[2017-09-21 22:00] LABS: CALC OSMOLALITY 272 mosm/kg (275-300); GLUCOSE 129 mg/dL (74-106); TROPONIN-I < 0.017 ng/mL (0.000-0.060)
[2017-09-22 17:36] VITALS: BP 135/73
[2017-09-22] MEDS ORDERED: LIPITOR40 MG PO (18:32)
[2017-09-22] MEDS ORDERED: VALIUM10 MG PO (18:33)
[2017-09-22 19:00] VITALS: BP 120/68
[2017-09-22 20:06] LABS: CKMB 0.2 U/L (0.0-3.6); CREATINE KINASE 24 UL (21-215)
[2017-09-22 20:21] LABS: TROPONIN-I < 0.017 ng/mL (0.000-0.060)
[2017-09-23] VITALS: BP 133/76
[2017-09-23 01:42] LABS: CKMB 0.3 U/L (0.0-3.6); CREATINE KINASE 25 UL (21-215)
[2017-09-23 01:50] LABS: TROPONIN-I < 0.017 ng/mL (0.000-0.060)
[2017-09-23 02:38] VITALS: BP 125/78; Ht 162.6 cm; Wt 72.8 kg
[2017-09-23 04:00] VITALS: BP 120/66
[2017-09-23 07:14] LABS: BASOPHILS 0.2 % (0-2); EOSINOPHILS 1.9 % (0-7); HEMATOCRIT 41.7 % (36.0-48.0); HEMOGLOBIN 13.6 g/dL (12-16); IMMATURE GRANULOCYTES 0.1 % (0-5); LYMPHOCYTES 37.7 % (15-50); MCH 28.6 pg (26.0-34.0); MCHC 32.6 g/dL (31.0-37.0); MEAN PLATELET VOLUME 11.6 fL (7.4-10.4); MONOCYTES 7.3 % (2-11); NEUTROPHILS 52.8 % (40-80); PLATELET COUNT 203 10x3/uL (130-400); RBC 4.75 10x6/uL (4.00-5.40); RDW 13.7 % (11.5-14.5); WBC 8.4 10x3/uL (4.8-10.8)
[2017-09-23 07:18] LABS: MCV 87.8 fL (80.0-100.0)
[2017-09-23 07:52] LABS: ALBUMIN 3.5 g/dL (3.4-5.0); ALKALINE PHOSPHATASE 99 U/L (46-116); ALT (SGPT) 24 U/L (10-68); BILIRUBIN - TOTAL 0.34 mg/dL (0.2-1.3); CALC OSMOLALITY 277 mosm/kg (275-300); CALCIUM 9.1 mg/dL (8.5-10.1); CARBON DIOXIDE 29.1 mmol/L (21.0-32.0); CHLORIDE - SERUM 100 mmol/L (98-107); CKMB 0.1 U/L (0.0-3.6); CREATINE KINASE 24 UL (21-215); GLUCOSE 134 mg/dL (74-106); POTASSIUM - SERUM 4.4 mmol/L (3.5-5.1); PROTEIN - SERUM 7.5 g/dL (6.4-8.2); SODIUM 138 mmol/L (136-145); UREA NITROGEN 13 mg/dL (7-18)
[2017-09-23 07:57] LABS: CREATININE - SERUM 0.9 mg/dL (0.6-1.3); TROPONIN-I < 0.017 ng/mL (0.000-0.060); eGFR NON AFRICAN AMERICAN 70 mL/min (90-120)
[2017-09-23 08:41] VITALS: BP 135/78
[2017-09-23 12:01] VITALS: BP 118/75
[2017-09-23 16:09] VITALS: BP 134/77
== END 2017-09-23 17:20 | disposition home or self-care (01) ==
LOC: D.ER 19:32 → D.M2 22:33 → D.EDHOLD 22:33 → OBSVTIME 22:34 → D.M2 09-22 17:11
PROVIDERS: Family Medicine; Family Medicine Adult Medicine
DX: R07.9 Chest pain, unspecified (principal); E11.9 Type 2 diabetes mellitus without complications; K21.9 Gastro-esophageal reflux disease without esophagitis; M25.512 Pain in left shoulder; Z95.5 Presence of coronary angioplasty implant and graft

== ENCOUNTER 2017-10-08 09:06 | Emergency (ER) | payer MEDICAID ==
[2017-09-23 02:38] VITALS: BMI 27.5
[~2017-10-08 09:06] MED LIST changes: +LIPITOR40 MG PO
[2017-10-08 09:46] LABS: BASOPHILS 0.3 % (0-2); EOSINOPHILS 1.2 % (0-7); HEMATOCRIT 41.8 % (36.0-48.0); HEMOGLOBIN 14.2 g/dL (12-16); IMMATURE GRANULOCYTES 0.2 % (0-5); LYMPHOCYTES 24.7 % (15-50); MCH 29.4 pg (26.0-34.0); MCV 86.5 fL (80.0-100.0); MEAN PLATELET VOLUME 11.6 fL (7.4-10.4); MONOCYTES 7.4 % (2-11); NEUTROPHILS 66.2 % (40-80); PLATELET COUNT 202 10x3/uL (130-400); RBC 4.83 10x6/uL (4.00-5.40); RDW 13.8 % (11.5-14.5); WBC 10.9 10x3/uL (4.8-10.8)
[2017-10-08 10:01] LABS: ALBUMIN 3.8 g/dL (3.4-5.0); ALKALINE PHOSPHATASE 94 U/L (46-116); ALT (SGPT) 23 U/L (10-68); CALC OSMOLALITY 288 mosm/kg (275-300); CALCIUM 9.3 mg/dL (8.5-10.1); CHLORIDE - SERUM 102 mmol/L (98-107); PROTEIN - SERUM 7.8 g/dL (6.4-8.2); SODIUM 139 mmol/L (136-145); UREA NITROGEN 10 mg/dL (7-18); eGFR NON AFRICAN AMERICAN 62 mL/min (90-120)
[2017-10-08 10:09] LABS: GLUCOSE 306 mg/dL (74-106)
[2017-10-08 10:12] LABS: CHOL - HDL RATIO 4.8 ratio (2.3-4.1); CHOLESTEROL, TOTAL 211 mg/dL (0-200); CKMB 0.5 U/L (0.0-3.6); CREATINE KINASE 30 UL (21-215); HDL CHOLESTEROL 44 mg/dL (32-96); LDL CHOLESTEROL 131 mg/dL (0-100); TRIGLYCERIDE 183 mg/dL (30-200); TROPONIN-I < 0.017 ng/mL (0.000-0.060)
== END 2017-10-08 14:19 | disposition home or self-care (01) ==
LOC: D.ER 09:06
PROVIDERS: Emergency Medicine
DX: R07.9 Chest pain, unspecified (principal); M54.10 Radiculopathy, site unspecified; K21.9 Gastro-esophageal reflux disease without esophagitis; E11.9 Type 2 diabetes mellitus without complications; F17.200 Nicotine dependence, unspecified, uncomplicated; R00.0 Tachycardia, unspecified

== ENCOUNTER 2017-10-19 04:26 | Observation (INO) | payer MEDICAID ==
--- NOTE | ~2017-10-19 | HEMODYNAMI ---
PATIENT:VIVIANA DELAROSA MEDICAL RECORD: [id number] : 67 LOCATION:[facility] DStarlaE15- [facility]# [id number] ADMISSION DATE: 10/19/17 Generatedon:10/19/201711:13 Patient name: VIVIANA DELAROSA Patient #: [id number] SSN: [id number] : 1965 Date of study: 10/19/2017 Page: Of Hemodynamic Procedure Report Patient Data Patient Demographics Procedure consent was obtained First Name: VIVIANA Gender: Female Last Name: [place] : 1965 Patient #: [id number] Age: 52 year(s) Race: SSN: [id number] Additional ID: [id number] Contact details Address: [place] [address] State: [place] City: [place] Zip code: [address] Past Medical History History of disease Date Diagnosis Comments CAD Allergies Allergen Reaction Date Comments Reported Penicillins 09/07/2014 Morphine 09/07/2014 Other allergy 09/07/2014 steroids Penicillins 07/15/2016 Morphine 07/15/2016 Other allergy 04/26/2017 PCN, steroids, morphine Admission Admission Data Admission Date: 10/19/2017 Admission Time: 5:48 Room #: D.E15 Procedure Procedure Types Cath Procedure Diagnostic Procedure [facility] w/Coronaries Sedation Charges Moderate Sedation up to 15 minutes PCI Procedure Coronary Stent Coronary Stent Initial Procedure Description Procedure Date Procedure Date: 10/19/2017 Procedure Start Time: 10:45 Procedure End Time: 11:10 Procedure Staff Name Function Kalyan Byrd MD Performing Physician Pankaj Pollack RT Monitor Cameron Leija RN Nurse Amy Aguillon RT Scrub Procedure Data Cath Procedure Fluoroscopy Diagnostic fluoroscopy Total fluoroscopy Time: 4.6 time: 4.6 min min Diagnostic fluoroscopy Total fluoroscopy dose: 523 dose: 523 mGy mGy Contrast Material Contrast Material Type Amount (ml) Isovue 300 69 Entry Location Entry Primary Successful Side Size Upsize Upsize Entry Closure Succes sful Closure Location (Fr) 1 (Fr) 2 (Fr) Remarks Device Remarks Femoral Right 6 Fr Exoseal artery Short Estimated blood loss: 10 ml Diagnostic catheters Device Type Used For End Catheter Placement MULTIPACK Pigtail 5 Fr Procedure catheter MULTIPACK JL 4.0 5Fr Procedure catheter MULTIPACK 3DRC 5Fr Procedure catheter Procedure Complications No complications Procedure Medications Medication Administration Route Dosage Oxygen NC 2 l/min Heparin Flush Bag added to field 2 bags (1000units/500ml NS) 0.9% NaCl I.V. 100 ml/hr Plavix P.O. 300 mg Fentanyl I.V. 100 mcg Versed I.V. 2 mg Fentanyl I.V. 50 mcg Versed I.V. 1 mg Fentanyl I.V. 50 mcg Versed I.V. 1 mg Fentanyl I.V. 50 mcg Versed I.V. 1 mg Fentanyl I.V. 50 mcg Versed I.V. 1 mg Heparin Bolus I.V. 4000 units Hemodynamics Rest Heart Rate: 90 (bpm) Snapshots Pre Cath Intra NCS Post Cath Vital Signs Time Heart Resp SPO2 etCO2 NIBP Rhythm Pain Sedation Rate (ipm) (%) (mmHg) (mmHg) Status Level (bpm) 10:19:37 92 17 100 0 110/79(95) NSR 0 (11) 10(A) , No pain 10:24:09 90 16 99 0 113/75(95) NSR 0 (11) 10(A) , No pain 10:28:44 85 16 97 0 113/70(87) NSR 0 (11) 10(A) , No pain 10:33:18 90 16 96 0 108/70(85) NSR 0 (11) 10(A) , No pain 10:37:50 91 15 90 0 103/72(85) NSR 0 (11) 10(A) , No pain 10:42:23 93 17 94 0 103/69(93) NSR 0 (11) 10(A) , No pain 10:46:57 90 16 95 0 100/65(77) NSR 0 (11) 10(A) , No pain 10:51:32 99 16 80 0 108/61(85) NSR 0 (11) 10(A) , No pain 10:56:06 99 17 96 0 87/64(80) NSR 0 (11) 9(A) , No pain 11:00:37 98 17 95 0 101/65(91) NSR 0 (11) 9(A) , No pain 11:05:11 104 16 95 0 106/61(92) NSR 0 (11) 9(A) , No pain 11:09:46 103 16 94 0 110/64(98) NSR 0 (11) 9(A) , No pain Medications Time Medication Route Dose Verified Delivered Reason Notes Effectiveness by by 10:20:39 Oxygen NC 2 Kalyan Barnes Per physician l/min Carson Leija RN 10:20:48 Heparin Flush added 2 Kalyan Perkinsy used for Bag to bags Carson Leija RN procedure (1000units/500ml field NS) 10:20:57 0.9% NaCl I.V. 100 Kalyan Cameron Per physician ml/hr Carson Leija RN 10:21:07 Plavix P.O. 300 Kalyan Cameron for mg Carson Leija RN antiplatelet therapy 10:41:17 Fentanyl I.V. 100 Kalyan Cameron [place] [facility] [place] Leija RN 10:41:23 Versed I.V. 2 mg Kalyan Cameron for sedation Carson Leija RN 10:44:48 Fentanyl I.V. 50 Kalyan Cameron for [place] [facility] [place] Carson Leija RN 10:44:51 Versed I.V. 1 mg Kalyan Cameron for sedation Carson Leija RN 10:46:04 Fentanyl I.V. 50 Kalyan Cameron for sedation lu Leija RN 10:46:07 Versed I.V. 1 mg Kalyan Cameron for sedation Carson Leija RN 10:49:07 Fentanyl I.V. 50 Kalyan Cameron for sed[place] [facility] [place] Carson Leija RN 10:49:11 Versed I.V. 1 mg Kalyan Cameron for sedation Carson Leija RN 10:54:45 Fentanyl I.V. 50 Kalyan Cameron for sedation mcg Carson Leija RN 10:54:48 Versed I.V. 1 mg Kalyan Cameron for sedation Carson Leija RN 11:00:54 Heparin Bolus I.V. 4000 Kalyan Cameron for units Carson Leija RN anticoagulation Procedure Log Time Note 9:50:45 Pankaj Pollack RT(R) sent for patient. Start room use. 9:57:46 Time tracking: Regular hours (M-F 7:00 - 5:00) 9:57:50 Plan of Care:Hemodynamics will remain stable., Cardiac rhythm will remain stable., Comfort level will be maintained., Respiratory function will remain adequate., Patient/ family verbilizes understanding of procedure., Procedure tolerated without complication., Recovers from procedure without complications.. 9:58:51 Use device set Femoral Dx 9:58:52 ACIST Syringe (39858) opened to sterile field. 9:58:53 Bag Decanter (2002S) opened to sterile field. 9:58:53 Medline Cath Pack ([id number]) opened to sterile field. 9:58:55 ACIST Hand Control (95848) opened to sterile field. 9:58:56 ACIST Manifold (48331) opened to sterile field. 9:58:57 Tegaderm 4 x 4 (1626W) opened to sterile field. 9:58:57 PERCUTANEOUS ENTRY 19GA needle opened to sterile field. 10:13:16 Patient received from ED to CCL 1 Alert and oriented. Tansferred to table in Supine position. 10:13:17 Warm blankets applied, and temitope hugger turned on for patient comfort. 10:13:18 Correct patient and procedure confirmed by team. 10:13:20 Signed procedure consent form obtained from patient. 10:13:20 ECG and BP/O2 sat monitors applied to patient. 10:13:22 Full Disclosure recording started 10:18:53 Vital chart was started 10:19:14 Rhythm: sinus rhythm 10:19:23 H&P Date Dictated: 10/19/2017 ER History on chart.. 10:19:24 Pre-procedure instructions explained to patient. 10:19:25 Pre-op teaching completed and patient verbalized understanding. 10:19:26 Family in waiting room. 10:19:28 Patient NPO since Midnight. 10:20:39 Oxygen 2 l/min NC was administered by Cameron Leija RN; Per physician; 10:20:48 Heparin Flush Bag (1000units/500ml NS) 2 bags added to field was administered by Cameron Leija RN; used for procedure; 10:20:57 0.9% NaCl 100 ml/hr I.V. was administered by Cameron Leija RN; Per physician; 10:21:07 Plavix 300 mg P.O. was administered by Cameron Leija RN; for antiplatelet therapy; 10:24:14 Is the patient allergic to Iodine/contrast media? No. 10:24:17 Is patient on blood thinner?Yes 10:24:20 ACC The patient was administered the following blood thiners within the last 24 hours: ACCPlavix 10:24:42 Patient diabetic? Yes. 10:24:43 If diabetic: On Metformin? Yes 10:25:31 If on Metformin: Last Dose? 10/18/2017 10:25:34 Previous problem with sedation/anesthesia? No ? 10:25:36 Snore? Yes 10:28:30 Sleep apnea? No 10:28:31 Deviated septum? No 10:28:32 Opens mouth fully? Yes 10:28:33 Sticks out tongue? Yes 10:28:35 Airway obstruction? No ? 10:28:38 Dentures? Yes OUT 10:28:40 Pre procedure: right dorsailis pedis pulse 1+ Palpable, but thready & weak; easily obliterated 10:28:45 Patient pain scale 0/10 ?. 10:29:00 IV patent on arrival in left hand with 0.9% NaCl at KVO. 10:29:02 Lab results completed and on chart. 10:29:06 Right groin area was prepped with chlora-prep and draped in sterile fashion 10:29:07 Alarms reviewed by R. N. 10:29:08 Sharps counted by scrub and verified by R.N. 10:31:26 Zero performed for pressure channel P1 10:32:27 SHEATH 6Fr Prelude ([id number]) opened to sterile field. 10:32:28 DIAGNOSTIC Multipack 5Fr catheter set ([id number]) opened to sterile field. 10:32:30 DIAGNOSTIC WIRE .035 260cm J wire (225406) opened to sterile field. 10:40:32 --------ALL STOP TIME OUT------ 10:40:32 Final Timeout: patient, procedure, and site verified with staff and physician. All members of the team are in agreement. 10:40:46 Right groin site verified by team. 10:40:49 Physical assessment completed. ASA score P 2 - A patient with mild systemic disease as per Kalyan Byrd MD. 10:40:52 Sedation plan: IV Moderate Sedation Medication:Versed, Fentanyl 10:41:17 Fentanyl 100 mcg I.V. was administered by Cameron Leija RN; for sedation; 10:41:23 Versed 2 mg I.V. was administered by Cameron Leija RN; for sedation; 10:44:48 Fentanyl 50 mcg I.V. was administered by Cameron Leija RN; for sedation; 10:44:51 Versed 1 mg I.V. was administered by Cameron Leija RN; for sedation; 10:45:52 Procedure started. 10:45:55 Local anesthetic to right femoral artery with Lidocaine 2% by Kalyan Byrd MD.INITIAL ACCESS ONLY 10:46:04 Fentanyl 50 mcg I.V. was administered by Cameron Leija RN; for sedation; 10:46:07 Versed 1 mg I.V. was administered by Cameron Leija RN; for sedation; 10:46:57 Baseline sample Acquired. 10:49:07 Fentanyl 50 mcg I.V. was administered by Cameron Leija RN; for sedation; 10:49:11 Versed 1 mg I.V. was administered by Cameron Leija RN; for sedation; 10:54:45 Fentanyl 50 mcg I.V. was administered by Cameron Leija RN; for sedation; 10:54:48 Versed 1 mg I.V. was administered by Cameron Leija RN; for sedation; 10:54:55 A 6 Fr Short sheath was inserted into the Right Femoral artery 10:55:10 A MULTIPACK Pigtail 5 Fr catheter was advanced over the wire and used for Procedure. 10:56:06 LV angiography performed. 10:56:08 LV gram done using BEGUM 10:56:14 EF : 60 % 10:56:37 Injector settings: Ml/sec: 7, Volume: 15, 10:56:45 Catheter removed. 10:56:53 A MULTIPACK JL 4.0 5Fr catheter was advanced over the wire and used for Procedure. 10:56:58 Use device set [facility] PCI 10:57:01 LCA angiography performed. 10:57:09 INFLATOR Merit BasixCompak (CD9896) opened to sterile field. 10:57:42 Catheter removed. 10:57:54 A MULTIPACK 3DRC 5Fr catheter was advanced over the wire and used for Procedure. 10:59:09 RCA angiography performed. 10:59:11 Catheter removed. 10:59:46 GUIDE 6FR XBLAD 3.5 catheter ([id number]) opened to sterile field. 10:59:58 6 Fr XBLAD 3.5 guide catheter was inserted over the wire 11:00:54 Heparin Bolus 4000 units I.V. was administered by Cameron Leija RN; for anticoagulation; 11:01:06 WHISPER 300cm guide wire ([id number]) opened to sterile field. 11:01:12 Whisper wire advanced. 11:02:02 Wire advanced across lesion. 11:04:48 The CARROLL OTW 2.25 x 12 stent ([id number]) was advanced then removed because of failure to cross lesion 11:05:02 Inflate balloon Inflation number: 1 A EUPHORA 2.0 x 12 Balloon ([id number]) was prepped and advanced across the Mid LAD, then inflated to 21 JESSICA for 0:10 (min:sec). 11:05:33 Balloon removed over the wire. 11:06:25 Place stent Inflation Number: 2 A CARROLL OTW 2.25 x 12 stent ([id number]) was prepped and advanced across the Mid LAD. The stent was deployed at 13 JESSICA for 0:10 (min:sec). 11:06:54 Stent catheter was removed intact over wire. 11:06:54 Wire removed. 11:06:55 Guide catheter removed. 11:07:48 EXOSEAL 6Fr (EX600) opened to sterile field. 11:08:03 Sheath removed intact; hemostasis achieved with Exoseal to the Right Femoral artery. 11:08:04 Procedure ended.(Physican Out) 11:08:57 Fluoroscopy time 04.60 minutes. 11:09:00 Fluoroscopy dose: 523 mGy 11:09:00 Flurop Dose total: 523 11:09:05 Contrast amount:Isovue 300 69ml. 11:09:08 Sharps counted by scrub and verified by R.N. 11:09:17 Insertion/operative site no bleeding no hematoma. 11:09:32 Post-op/insertion site Right Femoral artery dressed using a 4 x 4 and Tegaderm. 11:09:33 Post Procedure Pulses reassessed and unchanged 11:09:37 Post-procedure physical assessment completed. ASA score P 2 - A patient with mild systemic disease as per Kalyan Byrd MD. 11:09:39 Post procedure rhythm: unchanged. 11:09:42 Estimated blood loss: 10 ml 11:09:44 Post procedure instruction explained to patient.Patient verbalizes understanding. 11:09:44 Patient needs reinforcement of post procedure teaching. 11:09:51 Procedure type changed to Cath procedure, Diagnostic procedure, LHC, LHC w/Coronaries, Sedation Charges, Moderate Sedation up to 15 minutes, PCI procedure, Coronary Stent, Coronary Stent Initial 11:10:03 Procedure and supply charges have been captured, reviewed, submitted and are correct. 11:10:06 Procedure Complication : No complications 11:10:26 Vital chart was stopped 11:10:26 See physician's report for complete and final results. 11:10:36 Report given to Pre/Post Procedure Room. 11:10:39 Patient transfered to Pre/Post Procedure Room with Stretcher. 11:10:42 Procedure ended. 11:10:42 Full Disclosure recording stopped 11:12:46 End room use (Document Last) Intervention Summary Intervention Notes Time ActionType Lesion and Equipment Action# Pressure Duration Attributes Used 11:04:48 Discard CARROLL OTW 2.25 Stent x 12 stent ([id number]) 11:05:02 Inflate Mid LAD EUPHORA 2.0 x 1 21 00:10 balloon 12 Balloon ([id number]) 11:06:25 Place stent Mid LAD CARROLL OTW 2.25 2 13 00:10 x 12 stent ([id number]) Device Usage Item Name Manufacture Quantity Catalog Hospital Part Current Minim al Lot# / Number Charge Number Stock Stock Serial# Code ACIST Syringe Acist 1 78312 981508 213132 169917 20 (77093) Medical Systems Inc Bag Decanter Microtek 1 2001S 087807 23601 686623 5 () Medical Inc. Medline Cath Cardinal 1 [id number] 538034 64185 919611 5 Pack Health ([id number]) ACIST Hand Acist 1 67650 137325 656879 205244 5 Control Medical (02281) Systems Inc ACIST Acist 1 60576 745226 513978 767108 5 Manifold Medical (37214) Systems Inc Tegaderm 4 x 3M 1 1626W 065053 001445 733899 5 4 (1626W) PERCUTANEOUS Cook Medical 1 F36010 425363 947375 5 ENTRY 19GA needle SHEATH 6Fr Merit 1 [id number] 864662 878722 326131 5 Prelude Medical ([id number]) DIAGNOSTIC Cardinal 1 XX7691 926102 59047 449611 30 Multipack 5Fr Health catheter set (CN5969) DIAGNOSTIC St Kyle 1 035051 755119 783038 599074 30 WIRE .035 260cm J wire (630642) MULTIPACK Cardinal 1 837478 5 Pigtail 5 Fr Health catheter MULTIPACK JL Cardinal 1 599931 5 4.0 5Fr Health catheter INFLATOR Merit 1 OG9468 802796 612607 784720 15 [facility] Medical BasixCompak (JZ0405) MULTIPACK Cardinal 1 648851 5 3DRC 5Fr Health catheter GUIDE 6FR Cardinal 1 [id number] 161871 477240 417885 10 XBLAD 3.5 Health catheter ([id number]) WHISPER 300cm Wick 1 [id number] 693515 501196 901455 5 guide wire Vascular ([id number]) CARROLL OTW 2.25 Medtronic 1 [id number] 100314 48782 573954 5 [id number] x 12 stent ([id number]) EUPHORA 2.0 x Medtronic 1 [id number] 613418 323765 327699 5 [id number] 12 Balloon ([id number]) EXOSEAL 6Fr Cardinal 1 EX600 861357 489121 379485 10 (EX600) Health Signature Audit [place] Stage Time Signature Unsigned Intra-Procedure 10/19/2017 Pankaj Pollack 11:13:00 AM RT(R) Signatures Monitor : Pankaj Pollack RT Signature : Date : Time : [facility] [address] [place] [address]
--- NOTE | ~2017-10-19 | OP ---
PATIENT NAME: VIVIANA DELAROSA MEDICAL RECORD: [id number] :67 LOCATION:[place] Espinal[facility]12 ADMISSION DATE:10/19/17 SURGEON: ARMINDA TURPIN MD DATE OF OPERATION: 10/19/2017 PROCEDURES: 1. PTCA stent LAD. 2. Left heart catheterization. 3. Selective coronary angiography. 4. Left ventriculogram. INDICATION: Angina and coronary artery disease. PROCEDURE IN DETAIL: After informed consent was obtained and after a detailed description of the risks, benefits as well as alternative therapies, the patient elected to proceed with angiogram and angioplasty. The right femoral area is prepped and draped in normal sterile fashion. Right femoral artery was cannulated via modified Seldinger technique with placement of 6-Afghan sheath. All catheters exchanged through the sheath. FINDINGS: The left ventriculogram was performed in standard 30-degree BEGUM view reveals good cardiac wall motion throughout all segments. Overall ejection fraction estimated 60%. SELECTIVE CORONARY ANGIOGRAPHY: 1. Left main shows no significant angiographic disease. 2. Left anterior descending has previously placed stents, these are widely patent; however, there is 90% stenosis after this. 3. Left circumflex has previously placed stents, these are widely patent with no significant restenosis. No disease elsewise. 4. The right coronary has a previously placed stent that is widely patent as well. PTCA STENT OF THE LAD: The stent used was a 2.25 x 12 mm Jefferson. Result was 0% residual stenosis. OVERALL IMPRESSION: Successful percutaneous transluminal angioplasty stent of the left anterior descending going from 90% initial stenosis to 0% residual. TRANSINT:[id number] Voice Confirmation ID: [id number] DOCUMENT ID: [id number] ARMINDA TURPIN MD at 0956 CC: [id number] DICTATION DATE: 10/19/17 1112 OCCUPATIONAL HEALTH NURSE SUPERVISOR: 10/19/17 1244 DIS IN 10/19/17 [place] [id number] [place] [id number]
[2017-10-19 04:53] LABS: BASOPHILS 0.3 % (0-2); EOSINOPHILS 1.7 % (0-7); HEMATOCRIT 42.4 % (36.0-48.0); HEMOGLOBIN 14.7 g/dL (12-16); IMMATURE GRANULOCYTES 0.2 % (0-5); LYMPHOCYTES 42.1 % (15-50); MCH 29.9 pg (26.0-34.0); MCHC 34.7 g/dL (31.0-37.0); MCV 86.4 fL (80.0-100.0); MEAN PLATELET VOLUME 11.9 fL (7.4-10.4); MONOCYTES 6.2 % (2-11); NEUTROPHILS 49.5 % (40-80); PLATELET COUNT 220 10x3/uL (130-400); RBC 4.91 10x6/uL (4.00-5.40); RDW 13.8 % (11.5-14.5); WBC 9.9 10x3/uL (4.8-10.8)
[2017-10-19 05:11] LABS: ALBUMIN 4.1 g/dL (3.4-5.0); ALKALINE PHOSPHATASE 108 U/L (46-116); ALT (SGPT) 29 U/L (10-68); CALC OSMOLALITY 275 mosm/kg (275-300); CALCIUM 9.4 mg/dL (8.5-10.1); CARBON DIOXIDE 22.9 mmol/L (21.0-32.0); CHLORIDE - SERUM 102 mmol/L (98-107); CREATININE - SERUM 0.8 mg/dL (0.6-1.3); POTASSIUM - SERUM 4.2 mmol/L (3.5-5.1); PROTEIN - SERUM 8.3 g/dL (6.4-8.2); SODIUM 136 mmol/L (136-145); UREA NITROGEN 13 mg/dL (7-18); eGFR NON AFRICAN AMERICAN 80 mL/min (90-120)
[2017-10-19 05:17] LABS: GLUCOSE 172 mg/dL (74-106)
[2017-10-19 05:22] LABS: CHOL - HDL RATIO 6.4 ratio (2.3-4.1); CHOLESTEROL, TOTAL 273 mg/dL (0-200); CKMB 0.7 U/L (0.0-3.6); CREATINE KINASE 65 UL (21-215); HDL CHOLESTEROL 43 mg/dL (32-96); LDL CHOLESTEROL 184 mg/dL (0-100); LDL-HDL RATIO 4.3 ratio (1.5-3.5); TRIGLYCERIDE 231 mg/dL (30-200); TROPONIN-I < 0.017 ng/mL (0.000-0.060)
[2017-10-19 08:41] VITALS: BMI 27.5
== END 2017-10-19 15:30 | disposition home or self-care (01) ==
LOC: D.ER 04:26 → D.EDHOLD 05:48 → OBSVTIME 05:48 → D.CLR 11:16
PROVIDERS: Family Medicine
DX: I25.119 Atherosclerotic heart disease of native coronary artery with unspecified angina pectoris (principal); E11.40 Type 2 diabetes mellitus with diabetic neuropathy, unspecified; J44.9 Chronic obstructive pulmonary disease, unspecified; F41.8 Other specified anxiety disorders; I10 Essential (primary) hypertension

== ENCOUNTER 2017-10-24 21:17 | Emergency (ER) | payer MEDICAID ==
[2017-10-24 21:38] LABS: BASOPHILS 0.2 % (0-2); EOSINOPHILS 1.4 % (0-7); HEMATOCRIT 41.3 % (36.0-48.0); HEMOGLOBIN 14.1 g/dL (12-16); IMMATURE GRANULOCYTES 0.1 % (0-5); LYMPHOCYTES 24.4 % (15-50); MCH 29.4 pg (26.0-34.0); MCHC 34.1 g/dL (31.0-37.0); MCV 86.2 fL (80.0-100.0); MEAN PLATELET VOLUME 11.4 fL (7.4-10.4); NEUTROPHILS 67.9 % (40-80); PLATELET COUNT 222 10x3/uL (130-400); RBC 4.79 10x6/uL (4.00-5.40); RDW 13.7 % (11.5-14.5); WBC 8.8 10x3/uL (4.8-10.8)
[2017-10-24 21:49] LABS: ALBUMIN 3.8 g/dL (3.4-5.0); ALKALINE PHOSPHATASE 94 U/L (46-116); ALT (SGPT) 24 U/L (10-68); BILIRUBIN - TOTAL 0.37 mg/dL (0.2-1.3); CALC OSMOLALITY 281 mosm/kg (275-300); CALCIUM 9.8 mg/dL (8.5-10.1); CARBON DIOXIDE 25.7 mmol/L (21.0-32.0); CHLORIDE - SERUM 104 mmol/L (98-107); CREATININE - SERUM 0.7 mg/dL (0.6-1.3); GLUCOSE 177 mg/dL (74-106); POTASSIUM - SERUM 3.9 mmol/L (3.5-5.1); PROTEIN - SERUM 7.9 g/dL (6.4-8.2); SODIUM 139 mmol/L (136-145); UREA NITROGEN 12 mg/dL (7-18); eGFR NON AFRICAN AMERICAN > 90 mL/min (90-120)
[2017-10-24 22:06] LABS: CHOL - HDL RATIO 8.7 ratio (2.3-4.1); CHOLESTEROL, TOTAL 304 mg/dL (0-200); CREATINE KINASE 30 UL (21-215); HDL CHOLESTEROL 35 mg/dL (32-96); LDL CHOLESTEROL 206 mg/dL (0-100); LDL-HDL RATIO 5.9 ratio (1.5-3.5); TRIGLYCERIDE 319 mg/dL (30-200)
[2017-10-24 22:10] LABS: TROPONIN-I < 0.017 ng/mL (0.000-0.060)
== END 2017-10-24 23:10 | disposition home or self-care (01) ==
LOC: D.ER 21:17
PROVIDERS: Emergency Medicine
DX: R07.9 Chest pain, unspecified (principal); K21.9 Gastro-esophageal reflux disease without esophagitis; E11.9 Type 2 diabetes mellitus without complications; F17.200 Nicotine dependence, unspecified, uncomplicated

== ENCOUNTER 2017-11-17 03:49 | Emergency (ER) | payer MEDICAID ==
[2017-11-17 04:39] LABS: BASOPHILS 0.2 % (0-2); EOSINOPHILS 1.2 % (0-7); HEMATOCRIT 41.1 % (36.0-48.0); HEMOGLOBIN 13.8 g/dL (12-16); IMMATURE GRANULOCYTES 0.2 % (0-5); LYMPHOCYTES 38.5 % (15-50); MCH 29.4 pg (26.0-34.0); MCHC 33.6 g/dL (31.0-37.0); MCV 87.6 fL (80.0-100.0); MEAN PLATELET VOLUME 11.1 fL (7.4-10.4); MONOCYTES 5.4 % (2-11); NEUTROPHILS 54.5 % (40-80); PLATELET COUNT 197 10x3/uL (130-400); RBC 4.69 10x6/uL (4.00-5.40); RDW 13.9 % (11.5-14.5); WBC 8.8 10x3/uL (4.8-10.8)
[2017-11-17 04:54] LABS: INR 1.01 (0.85-1.17); PROTIME 12.9 SECONDS (11.6-15.0)
[2017-11-17 04:55] LABS: D-DIMER-QUANTITATIVE 0.3 ug/mLFEU (0.20-0.54)
[2017-11-17 04:58] LABS: ALBUMIN 3.9 g/dL (3.4-5.0); ALKALINE PHOSPHATASE 99 U/L (46-116); ALT (SGPT) 18 U/L (10-68); BILIRUBIN - TOTAL 0.25 mg/dL (0.2-1.3); CALC OSMOLALITY 284 mosm/kg (275-300); CALCIUM 9.5 mg/dL (8.5-10.1); CARBON DIOXIDE 26.3 mmol/L (21.0-32.0); CHLORIDE - SERUM 104 mmol/L (98-107); CREATININE - SERUM 0.7 mg/dL (0.6-1.3); POTASSIUM - SERUM 3.7 mmol/L (3.5-5.1); SODIUM 144 mmol/L (136-145); UREA NITROGEN 6 mg/dL (7-18); eGFR NON AFRICAN AMERICAN > 90 mL/min (90-120)
[2017-11-17 05:01] LABS: GLUCOSE 90 mg/dL (74-106)
[2017-11-17 05:09] LABS: CKMB 0.2 U/L (0.0-3.6); CREATINE KINASE 38 UL (21-215)
[2017-11-17 05:12] LABS: TROPONIN-I < 0.017 ng/mL (0.000-0.060)
== END 2017-11-17 08:46 | disposition home or self-care (01) ==
LOC: D.ER 03:49
PROVIDERS: Family Medicine
DX: R55 Syncope and collapse (principal); R07.9 Chest pain, unspecified; I25.10 Atherosclerotic heart disease of native coronary artery without angina pectoris; F17.200 Nicotine dependence, unspecified, uncomplicated; K21.9 Gastro-esophageal reflux disease without esophagitis; E11.9 Type 2 diabetes mellitus without complications

== ENCOUNTER 2017-12-01 22:39 | Observation (INO) | payer MEDICAID ==
[2017-12-01 23:13] LABS: BASOPHILS 0.2 % (0-2); EOSINOPHILS 1.4 % (0-7); HEMATOCRIT 42.3 % (36.0-48.0); HEMOGLOBIN 14.5 g/dL (12-16); IMMATURE GRANULOCYTES 0.1 % (0-5); LYMPHOCYTES 42.4 % (15-50); MCH 30.2 pg (26.0-34.0); MCHC 34.3 g/dL (31.0-37.0); MCV 88.1 fL (80.0-100.0); MEAN PLATELET VOLUME 11.1 fL (7.4-10.4); MONOCYTES 6.1 % (2-11); NEUTROPHILS 49.8 % (40-80); PLATELET COUNT 201 10x3/uL (130-400); RDW 13.7 % (11.5-14.5); WBC 8.3 10x3/uL (4.8-10.8)
[2017-12-01 23:29] LABS: ALBUMIN 4.1 g/dL (3.4-5.0); ALKALINE PHOSPHATASE 99 U/L (46-116); ALT (SGPT) 19 U/L (10-68); BILIRUBIN - TOTAL 0.27 mg/dL (0.2-1.3); CALC OSMOLALITY 285 mosm/kg (275-300); CALCIUM 9.3 mg/dL (8.5-10.1); CHLORIDE - SERUM 103 mmol/L (98-107); CREATININE - SERUM 0.8 mg/dL (0.6-1.3); GLUCOSE 87 mg/dL (74-106); INR 0.98 (0.85-1.17); POTASSIUM - SERUM 3.7 mmol/L (3.5-5.1); PROTEIN - SERUM 8.3 g/dL (6.4-8.2); PROTIME 12.6 SECONDS (11.6-15.0); SODIUM 145 mmol/L (136-145); UREA NITROGEN 7 mg/dL (7-18); eGFR NON AFRICAN AMERICAN 80 mL/min (90-120)
[2017-12-01 23:30] LABS: APTT 29.8 SECONDS (22.8-39.4)
[2017-12-01 23:40] LABS: CHOL - HDL RATIO 7.3 ratio (2.3-4.1); CHOLESTEROL, TOTAL 277 mg/dL (0-200); CKMB 2.4 U/L (0.0-3.6); CREATINE KINASE 57 UL (21-215); HDL CHOLESTEROL 38 mg/dL (32-96); LDL CHOLESTEROL 171 mg/dL (0-100); LDL-HDL RATIO 4.5 ratio (1.5-3.5); TRIGLYCERIDE 343 mg/dL (30-200)
[2017-12-01 23:42] LABS: TROPONIN-I < 0.017 ng/mL (0.000-0.060)
== END 2017-12-02 10:00 | disposition home or self-care (01) ==
LOC: D.ER 22:39 → D.EDHOLD 12-02 00:26 → OBSVTIME 12-02 00:26 → D.EDHOLD 12-02 10:00 → D.SDCHOLD 12-02 10:45
PROVIDERS: Family Medicine
DX: R07.9 Chest pain, unspecified (principal); I25.10 Atherosclerotic heart disease of native coronary artery without angina pectoris; Z95.5 Presence of coronary angioplasty implant and graft; I10 Essential (primary) hypertension; E78.5 Hyperlipidemia, unspecified

== ENCOUNTER 2018-01-03 06:18 | Emergency (ER) | payer MEDICAID ==
[~2018-01-03] VITALS: Ht 162.6 cm; Wt 72.7 kg
[2018-01-03 06:24] VITALS: Ht 162.6 cm; Wt 72.7 kg
[2018-01-03 06:45] LABS: BASOPHILS 0.2 % (0-2); EOSINOPHILS 0.9 % (0-7); HEMATOCRIT 40.5 % (36.0-48.0); HEMOGLOBIN 13.7 g/dL (12-16); IMMATURE GRANULOCYTES 0.3 % (0-5); LYMPHOCYTES 37.3 % (15-50); MCH 29.6 pg (26.0-34.0); MCHC 33.8 g/dL (31.0-37.0); MCV 87.5 fL (80.0-100.0); MEAN PLATELET VOLUME 11.7 fL (7.4-10.4); MONOCYTES 6.2 % (2-11); NEUTROPHILS 55.1 % (40-80); PLATELET COUNT 197 10x3/uL (130-400); RBC 4.63 10x6/uL (4.00-5.40); RDW 13.5 % (11.5-14.5); WBC 8.6 10x3/uL (4.8-10.8)
[2018-01-03 07:01] LABS: ALBUMIN 3.8 g/dL (3.4-5.0); ALKALINE PHOSPHATASE 98 U/L (46-116); ALT (SGPT) 18 U/L (10-68); BILIRUBIN - TOTAL 0.26 mg/dL (0.2-1.3); CALC OSMOLALITY 286 mosm/kg (275-300); CALCIUM 9.1 mg/dL (8.5-10.1); CARBON DIOXIDE 26.9 mmol/L (21.0-32.0); CHLORIDE - SERUM 104 mmol/L (98-107); CREATININE - SERUM 0.8 mg/dL (0.6-1.3); POTASSIUM - SERUM 3.6 mmol/L (3.5-5.1); PROTEIN - SERUM 7.7 g/dL (6.4-8.2); SODIUM 141 mmol/L (136-145); UREA NITROGEN 8 mg/dL (7-18); eGFR NON AFRICAN AMERICAN 80 mL/min (90-120)
[2018-01-03 07:03] LABS: CREATINE KINASE 39 UL (21-215); TROPONIN-I < 0.017 ng/mL (0.000-0.060)
[2018-01-03 07:12] LABS: GLUCOSE 234 mg/dL (74-106)
[2018-01-03 07:15] LABS: INR 1.03 (0.85-1.17); PROTIME 13.1 SECONDS (11.6-15.0)
[2018-01-03 10:33] VITALS: BP 111/63
== END 2018-01-03 10:35 | disposition home or self-care (01) ==
LOC: D.ER 06:18
PROVIDERS: Family Medicine
DX: R07.9 Chest pain, unspecified (principal); F17.200 Nicotine dependence, unspecified, uncomplicated

== ENCOUNTER 2018-01-09 03:18 | Emergency (ER) | payer MEDICAID ==
[~2018-01-09] VITALS: Ht 162.6 cm; Wt 70.9 kg
[2018-01-09 03:21] VITALS: Ht 162.6 cm; Wt 70.9 kg
[2018-01-09 04:17] LABS: BASOPHILS 0.3 % (0-2); EOSINOPHILS 0.9 % (0-7); HEMATOCRIT 41.1 % (36.0-48.0); IMMATURE GRANULOCYTES 0.3 % (0-5); LYMPHOCYTES 33.9 % (15-50); MCH 29.9 pg (26.0-34.0); MCHC 34.1 g/dL (31.0-37.0); MCV 87.8 fL (80.0-100.0); MEAN PLATELET VOLUME 11.4 fL (7.4-10.4); MONOCYTES 6.6 % (2-11); PLATELET COUNT 202 10x3/uL (130-400); RBC 4.68 10x6/uL (4.00-5.40); RDW 13.4 % (11.5-14.5)
[2018-01-09 04:25] LABS: APTT 31.5 SECONDS (22.8-39.4); INR 1.05 (0.85-1.17); PROTIME 13.3 SECONDS (11.6-15.0)
[2018-01-09 04:26] LABS: D-DIMER-QUANTITATIVE < 0.27 ug/mLFEU (0.20-0.54)
[2018-01-09 04:30] LABS: ALBUMIN 3.9 g/dL (3.4-5.0); ALKALINE PHOSPHATASE 97 U/L (46-116); ALT (SGPT) 16 U/L (10-68); BILIRUBIN - TOTAL 0.23 mg/dL (0.2-1.3); CALC OSMOLALITY 272 mosm/kg (275-300); CALCIUM 9.5 mg/dL (8.5-10.1); CARBON DIOXIDE 24.9 mmol/L (21.0-32.0); CHLORIDE - SERUM 102 mmol/L (98-107); CREATININE - SERUM 0.8 mg/dL (0.6-1.3); GLUCOSE 87 mg/dL (74-106); POTASSIUM - SERUM 3.9 mmol/L (3.5-5.1); SODIUM 138 mmol/L (136-145); UREA NITROGEN 8 mg/dL (7-18); eGFR NON AFRICAN AMERICAN 80 mL/min (90-120)
[2018-01-09 04:40] LABS: CKMB 0.5 U/L (0.0-3.6); CREATINE KINASE 36 UL (21-215); MAGNESIUM - SERUM 2.2 mg/dL (1.8-2.4); TROPONIN-I < 0.017 ng/mL (0.000-0.060)
[2018-01-09 06:02] VITALS: BP 138/76
== END 2018-01-09 06:02 | disposition home or self-care (01) ==
LOC: D.ER 03:18
PROVIDERS: Family Medicine
DX: R07.9 Chest pain, unspecified (principal); E11.9 Type 2 diabetes mellitus without complications; I10 Essential (primary) hypertension; Z86.79 Personal history of other diseases of the circulatory system; F17.200 Nicotine dependence, unspecified, uncomplicated

== ENCOUNTER 2018-01-10 22:37 | Observation (INO) | payer MEDICAID ==
[~2018-01-10] VITALS: Ht 162.6 cm; Wt 70.9 kg
--- NOTE | ~2018-01-10 | EC ---
PATIENT:VIVIANA DELAROSA DATE OF SERVICE: 01/11/18 SEX: F MEDICAL RECORD: [id number] DATE OF : 67 LOCATION:[facility] Espinal222 AGE OF PATIENT: 52 ADMISSION DATE: 01/11/18 REFERRING PHYSICIAN: INTERPRETING PHYSICIAN: EZEKIEL NOGUEIRA MD ECHOCARDIOGRAM REPORT ECHO CHARGES 4 ECHO COMPLETE Date: 01/11 CLINICAL DIAGNOSIS: HTN ECHOCARDIOGRAPHIC MEASUREMENTS (adult normal given) AC root (d.<3.7cm) 2.6 cm LV Septum d (<1.2 cm> 1.1 cm Valve Excursion 1.8 cm LV Septum (systole) 1.6 cm Left Atria (s.<4.0cm> 3.8 cm LVPW d(<1.2cm) 1.2 cm RV (d.<2.3cm) 2.6 cm LVPW (sytole) 1.8 cm LV diastole(<5.6CM) 5.1 cm MV E-F(>70mm/sec) cm LV systole 2.7 cm LVOT Diameter 1.6 cm MV exc.(>10mm) cm Est.ejection fraction (50-75%) % DOPPLER: LVIT cm/sec A 73.0 cm/sec E 98.0 cm/sec LA cm/sec RVSP 38.0 mmHg LVOT 103 cm/sec AOP1/2T m/s Asc. Ao 146 cm/sec RVOT 65.0 cm/sec RA cm/sec PA 96.0 cm/sec AV Gradient Peak 8.5 mmHg AV Mean 3.9 mmHg AV Area 1.5 cm MV Gradient Peak 3.9 mmHg MV Mean 1.6 mmHg MV Area cm COMMENTS: Barrel Assembler: Dawson JASSOOE Brick Layer: 4 Dr. Nogueira TAPE# PACS Pericardial Effusion N DATE OF SERVICE: 01/12/2018 Transthoracic Echocardiogram FINDINGS: The left ventricle has mild left ventricular hypertrophy. Ejection fraction is 65% to 70%. There are no wall motion abnormalities. Left atrium is normal. Right atrium is normal. Mitral valve and tricuspid valve are normal. The pericardium is normal. Inflow characteristics are normal. There are no significant abnormalities on this study. ECHOCARDIOGRAM REPORT [id number] VIVIANA DELAROSA Overall this is the normal echocardiogram for the patient's stated age. TRANSINT:[id number] Voice Confirmation ID: [id number] DOCUMENT ID: [id number] EZEKIEL NOGUEIAR MD at 0936 CC: [id number] DICTATION DATE: 01/12/18928 EDITOR PRODUCER: 01/12/18 1054 DIS IN 01/12/18 [place] [address] [place] [id number]
[2018-01-10 23:34] LABS: BASOPHILS 0.2 % (0-2); EOSINOPHILS 0.8 % (0-7); HEMATOCRIT 41.7 % (36.0-48.0); HEMOGLOBIN 14.5 g/dL (12-16); IMMATURE GRANULOCYTES 0.2 % (0-5); LYMPHOCYTES 30.5 % (15-50); MCH 30.3 pg (26.0-34.0); MCHC 34.8 g/dL (31.0-37.0); MCV 87.2 fL (80.0-100.0); MEAN PLATELET VOLUME 11.6 fL (7.4-10.4); MONOCYTES 5.7 % (2-11); NEUTROPHILS 62.6 % (40-80); PLATELET COUNT 215 10x3/uL (130-400); RBC 4.78 10x6/uL (4.00-5.40); RDW 13.5 % (11.5-14.5); WBC 11.1 10x3/uL (4.8-10.8)
[2018-01-10 23:48] LABS: APTT 27.9 SECONDS (22.8-39.4); INR 0.95 (0.85-1.17); PROTIME 12.3 SECONDS (11.6-15.0)
[2018-01-10 23:50] LABS: ALBUMIN 3.8 g/dL (3.4-5.0); ALKALINE PHOSPHATASE 98 U/L (46-116); ALT (SGPT) 16 U/L (10-68); BILIRUBIN - TOTAL 0.21 mg/dL (0.2-1.3); CALC OSMOLALITY 275 mosm/kg (275-300); CALCIUM 9.2 mg/dL (8.5-10.1); CARBON DIOXIDE 27.7 mmol/L (21.0-32.0); CHLORIDE - SERUM 102 mmol/L (98-107); CREATININE - SERUM 0.9 mg/dL (0.6-1.3); D-DIMER-QUANTITATIVE 0.28 ug/mLFEU (0.20-0.54); GLUCOSE 115 mg/dL (74-106); POTASSIUM - SERUM 3.8 mmol/L (3.5-5.1); PROTEIN - SERUM 7.8 g/dL (6.4-8.2); SODIUM 138 mmol/L (136-145); UREA NITROGEN 10 mg/dL (7-18); eGFR NON AFRICAN AMERICAN 70 mL/min (90-120)
[2018-01-10 23:59] LABS: CREATINE KINASE 30 UL (21-215); TROPONIN-I < 0.017 ng/mL (0.000-0.060)
[2018-01-11] MEDS ORDERED: ATIVAN1 MG PO (01:29)
[2018-01-11 02:03] VITALS: BP 144/78; BMI 26.8
[2018-01-11 03:30] VITALS: BP 139/77
[2018-01-11 05:03] LABS: CKMB 0.3 U/L (0.0-3.6); CREATINE KINASE 24 UL (21-215); TROPONIN-I < 0.017 ng/mL (0.000-0.060)
[2018-01-11 08:06] VITALS: BP 112/64
[2018-01-11 09:07] VITALS: Ht 162.6 cm; Wt 70.9 kg
[2018-01-11 09:41] LABS: CKMB 0.4 U/L (0.0-3.6); CREATINE KINASE 37 UL (21-215); TROPONIN-I < 0.017 ng/mL (0.000-0.060)
[2018-01-11 10:11] LABS: BASOPHILS 0.2 % (0-2); EOSINOPHILS 0.9 % (0-7); HEMATOCRIT 40.1 % (36.0-48.0); HEMOGLOBIN 13.2 g/dL (12-16); IMMATURE GRANULOCYTES 0.1 % (0-5); LYMPHOCYTES 35.8 % (15-50); MCH 29.7 pg (26.0-34.0); MCHC 32.9 g/dL (31.0-37.0); MEAN PLATELET VOLUME 11.9 fL (7.4-10.4); MONOCYTES 5.7 % (2-11); NEUTROPHILS 57.3 % (40-80); PLATELET COUNT 196 10x3/uL (130-400); RBC 4.44 10x6/uL (4.00-5.40); RDW 13.6 % (11.5-14.5); WBC 8.8 10x3/uL (4.8-10.8)
[2018-01-11 10:55] LABS: MCV 90.3 fL (80.0-100.0)
[2018-01-11 11:07] LABS: CHOL - HDL RATIO 7.9 ratio (2.3-4.1); LDL-HDL RATIO 4.5 ratio (1.5-3.5)
[2018-01-11 12:36] VITALS: BP 109/58
[2018-01-11 15:23] VITALS: BP 117/60
[2018-01-11 20:37] VITALS: BP 104/55
[2018-01-12 00:41] VITALS: BP 118/68
[2018-01-12 03:51] VITALS: BP 116/55
[2018-01-12 06:39] LABS: BASOPHILS 0.2 % (0-2); EOSINOPHILS 1.4 % (0-7); HEMATOCRIT 37.7 % (36.0-48.0); HEMOGLOBIN 12.5 g/dL (12-16); IMMATURE GRANULOCYTES 0.1 % (0-5); LYMPHOCYTES 40.6 % (15-50); MCH 29.5 pg (26.0-34.0); MCHC 33.2 g/dL (31.0-37.0); MCV 88.9 fL (80.0-100.0); MEAN PLATELET VOLUME 11.4 fL (7.4-10.4); MONOCYTES 7.9 % (2-11); NEUTROPHILS 49.8 % (40-80); PLATELET COUNT 166 10x3/uL (130-400); RBC 4.24 10x6/uL (4.00-5.40); RDW 13.6 % (11.5-14.5); WBC 8.4 10x3/uL (4.8-10.8)
[2018-01-12 07:32] LABS: ALBUMIN 3.3 g/dL (3.4-5.0); ANION GAP 10.1 mmol/L (8-16); BILIRUBIN - TOTAL 0.22 mg/dL (0.2-1.3); CALCIUM 8.7 mg/dL (8.5-10.1); CARBON DIOXIDE 31.4 mmol/L (21.0-32.0); CREATININE - SERUM 0.9 mg/dL (0.6-1.3); POTASSIUM - SERUM 4.5 mmol/L (3.5-5.1); PROTEIN - SERUM 6.3 g/dL (6.4-8.2)
[2018-01-12 07:58] VITALS: BP 120/58
[2018-01-12 11:19] VITALS: BP 111/52
[2018-01-12] MEDS ORDERED: NITRO-DUR0.2 MG TRANSDERM (11:58)
[2018-01-12] MEDS ORDERED: TOPROL XL25 MG PO (11:58)
[2018-01-12] MEDS ORDERED: NITROQUICK0.4 MG SL (11:58)
[2018-01-12 15:43] VITALS: BP 116/60
== END 2018-01-12 17:39 | disposition home or self-care (01) ==
LOC: D.ER 22:37 → D.MS 01-11 01:01 → OBSVTIME 01-11 01:01 → D.MS 01-11 01:01
PROVIDERS: Emergency Medicine; Family Medicine; Internal Medicine Cardiovascular Disease
DX: I25.119 Atherosclerotic heart disease of native coronary artery with unspecified angina pectoris (principal); I10 Essential (primary) hypertension; F32.9 Major depressive disorder, single episode, unspecified; F41.9 Anxiety disorder, unspecified; F17.213 Nicotine dependence, cigarettes, with withdrawal; K21.9 Gastro-esophageal reflux disease without esophagitis; E11.9 Type 2 diabetes mellitus without complications; E78.5 Hyperlipidemia, unspecified

== ENCOUNTER 2018-02-06 06:12 | Observation (INO) | payer MEDICAID ==
[~2018-02-06] VITALS: Ht 162.6 cm; Wt 75.0 kg
--- NOTE | ~2018-02-06 | CN ---
PATIENT NAME:VIVIANA DELAROSA MEDICAL RECORD: [id number] : 67 LOCATION:D. D.2116 ADMIT DATE: 02/06/18 ACCOUNT: [id number] CONSULTING PHYSICIAN: FERDINAND SCHMITT MD REFERRING PHYSICIAN: DWIGHT MOSER MD DATE OF CONSULTATION: 02/06/2018 HISTORY OF PRESENT ILLNESS: A 52-year-old female with extensive cardiac history and multiple interventions, admitted with some atypical chest pain. This actually started in the cervical region and follows almost in a radicular pattern down to her left shoulder with hand numbness. Strength is normal. Cardiac enzymes negative so far. ECG without acute change. We are asked to see her concerning her cardiovascular status. PAST MEDICAL HISTORY: 1. History of chronic pain syndrome. 2. Coronary artery disease as described above. 3. Anxiety disorder. 4. Hypertension. 5. Hyperlipidemia. 6. Diabetes mellitus. 7. Peripheral neuropathy. MEDICATIONS: Include Amaryl 2 mg p.o. daily, metformin 1 gram b.i.d., Protonix 40 every day, Ativan 1 mg p.o. b.i.d., aspirin 325 every day, Neurontin 300 t.i.d., metoprolol 50 b.i.d., atorvastatin 40 every day, Ranexa 500 b.i.d., Plavix 75 every day. ALLERGIES: STEROIDS, PENICILLIN, MORPHINE, DEMEROL. SOCIAL HISTORY: Smokes a pack a day, nondrinker. Has trouble with ADLs due to chronic pain. REVIEW OF SYSTEMS: The patient reports easy bruising but reports no swollen glands. The patient reports no fever, no night sweats, no significant weight gain, no significant weight loss. No significant exercise tolerance. The patient reports no dry eyes, no irritation, no vision change. Patient reports no difficulty hearing and no ear pain. Patient reports no frequent nose bleeds or nose and sinus problems. Patient reports on arm pain on exertion. No shortness of breath while lying down. No history of heart murmur. Patient reports no cough, no wheezing or coughing up blood. Patient reports no abdominal pain, no vomiting. Normal appetite. No diarrhea and not vomiting blood. No nausea and no constipation. Patient reports no incontinence. No difficulty urinating. No hematuria. No increased frequency. Patient reports no muscle aches. No weakness, no arthralgias, no back pain. No swelling of the extremities. Patient reports no abnormal mole, no jaundice, no rashes. Reports no loss of consciousness. No weakness and no numbness. No seizures, dizziness, or headaches. The patient reports no depression, no sleep disturbance, feeling safe in a relationship and no alcohol abuse. Patient reports on fatigue. Reports no runny nose or sinus pressure. No itching, no hives, and no frequent sneezing. PHYSICAL EXAMINATION: GENERAL: A middle-aged female in no acute distress. VITAL SIGNS: Blood pressure 120/93, pulse 106 and regular. CONSULT REPORT [id number] VIVIANA DELAROSA HEENT: Normocephalic, atraumatic. NECK: No JVD or bruit. HEART: Regular, a II/ systolic ejection murmur. LUNGS: Slight prolonged expiratory phase. No active wheezes. ABDOMEN: Soft, nontender. EXTREMITIES: Pulses 2+ with no edema. NEUROLOGIC: Grossly intact. DIAGNOSTIC DATA: ECG without acute change. Cardiac enzymes are negative. IMPRESSION: Atypical pain, more posterior cervical with radicular pattern, good cardiac enzymes. Thank you for the consultation. TRANSINT:[id number] Voice Confirmation ID: [id number] DOCUMENT ID: [id number] FERDINAND SCHMITT MD at 1116 CC: [id number] DICTATION DATE: 02/06/18 1338 BUSINESS PROCESS ENGINEER: 02/06/18 1424 DIS IN 02/07/18 [facility] [address] [place] [address]
--- NOTE | ~2018-02-06 | MORECARE ---
CASE MANAGEMENT DISCHARGE SUMMARY PATIENT: VIVIANA DELAROSA UNIT: [id number] ADM DATE: 02/06/18 AGE: 52 : 67 SEX: F ROOM/BED: D.[facility] AUTHOR: CASE, FIELD SALES REPRESENTATIVE PHYSICIAN: REFERRING PHYSICIAN: DWIGHT MOSER MD DATE OF SERVICE: 02/06/18 Discharge Plan Patient Name: VIVIANA DELAROSA Facility: [facility]:[place] : 1965 Planned Disposition: Home Anticipated Discharge Date: 02/07/18 Discharge Date: 02/07/2018 Expected LOS: 1 Initial Reviewer: [email or web address] Initial Review Date: 02/08/2018 Generated: 02/08/18 10:17 am Patient Name: VIVIANA DELAROSA Page [id number] All edits/amendments must be made on the electronic document DICTATION DATE: 02/08/18916 AUTOMATIC SPINNING LATHE SETTER: 02/08/18916 RPT#: [id number] DC DATE:02/07/18 STATUS: DIS IN [facility] [address] [place] [address] END OF REPORT
[~2018-02-06 06:12] MED LIST changes: +ATIVAN1 MG PO; +NITRO-DUR0.2 MG TRANSDERM; +NITROQUICK0.4 MG SL; +TOPROL XL25 MG PO
[2018-02-06 06:51] VITALS: BP 146/117
[2018-02-06 07:01] LABS: BASOPHILS 0.2 % (0-2); EOSINOPHILS 0.5 % (0-7); HEMATOCRIT 42.5 % (36.0-48.0); HEMOGLOBIN 14.5 g/dL (12-16); IMMATURE GRANULOCYTES 0.2 % (0-5); LYMPHOCYTES 31.4 % (15-50); MCHC 34.1 g/dL (31.0-37.0); MCV 87.8 fL (80.0-100.0); MEAN PLATELET VOLUME 11.5 fL (7.4-10.4); MONOCYTES 4.5 % (2-11); NEUTROPHILS 63.2 % (40-80); RBC 4.84 10x6/uL (4.00-5.40); RDW 13.6 % (11.5-14.5); WBC 12.6 10x3/uL (4.8-10.8)
[2018-02-06 07:04] LABS: PLATELET COUNT 207 10x3/uL (130-400)
[2018-02-06 07:21] LABS: INR 1.01 (0.85-1.17); PROTIME 12.9 SECONDS (11.6-15.0)
[2018-02-06 07:22] LABS: APTT 32.2 SECONDS (22.8-39.4)
[2018-02-06 07:24] LABS: ALKALINE PHOSPHATASE 108 U/L (46-116); ALT (SGPT) 20 U/L (10-68); BILIRUBIN - TOTAL 0.25 mg/dL (0.2-1.3); CALC OSMOLALITY 276 mosm/kg (275-300); CALCIUM 9.3 mg/dL (8.5-10.1); CARBON DIOXIDE 25.4 mmol/L (21.0-32.0); CHLORIDE - SERUM 103 mmol/L (98-107); CREATININE - SERUM 0.7 mg/dL (0.6-1.3); GLUCOSE 141 mg/dL (74-106); POTASSIUM - SERUM 3.9 mmol/L (3.5-5.1); PROTEIN - SERUM 7.9 g/dL (6.4-8.2); SODIUM 139 mmol/L (136-145); UREA NITROGEN 5 mg/dL (7-18); eGFR NON AFRICAN AMERICAN > 90 mL/min (90-120)
[2018-02-06 07:36] LABS: CKMB 0.7 U/L (0.0-3.6); CREATINE KINASE 31 UL (21-215); PRO BNP 17 pg/mL (0-125); TROPONIN-I < 0.017 ng/mL (0.000-0.060)
[2018-02-06 07:39] VITALS: BP 126/85
[2018-02-06 09:39] LABS: CREATINE KINASE 37 UL (21-215)
[2018-02-06 09:40] LABS: TROPONIN-I < 0.017 ng/mL (0.000-0.060)
[2018-02-06 10:00] VITALS: BP 111/83; Ht 162.6 cm; Wt 75.0 kg
[2018-02-06 11:23] VITALS: BP 120/93
[2018-02-06 14:56] VITALS: BP 105/66
[2018-02-06 15:40] LABS: CKMB 0.5 U/L (0.0-3.6); CREATINE KINASE 31 UL (21-215)
[2018-02-06 15:42] LABS: TROPONIN-I < 0.017 ng/mL (0.000-0.060)
[2018-02-06 20:57] VITALS: BP 107/62
[2018-02-06 21:29] LABS: CKMB 0.4 U/L (0.0-3.6); CREATINE KINASE 26 UL (21-215)
[2018-02-06 21:32] LABS: TROPONIN-I < 0.017 ng/mL (0.000-0.060)
[2018-02-07 05:52] LABS: BASOPHILS 0.4 % (0-2); EOSINOPHILS 2.6 % (0-7); HEMATOCRIT 36.9 % (36.0-48.0); HEMOGLOBIN 12.3 g/dL (12-16); IMMATURE GRANULOCYTES 0.1 % (0-5); LYMPHOCYTES 47.1 % (15-50); MCH 29.8 pg (26.0-34.0); MCHC 33.3 g/dL (31.0-37.0); MCV 89.3 fL (80.0-100.0); MEAN PLATELET VOLUME 11.9 fL (7.4-10.4); MONOCYTES 7.3 % (2-11); NEUTROPHILS 42.5 % (40-80); PLATELET COUNT 172 10x3/uL (130-400); RBC 4.13 10x6/uL (4.00-5.40); RDW 13.5 % (11.5-14.5)
[2018-02-07 06:10] LABS: ALKALINE PHOSPHATASE 84 U/L (46-116); BILIRUBIN - TOTAL 0.17 mg/dL (0.2-1.3); CALCIUM 8.2 mg/dL (8.5-10.1); CARBON DIOXIDE 28.9 mmol/L (21.0-32.0); CHLORIDE - SERUM 108 mmol/L (98-107); CREATININE - SERUM 0.8 mg/dL (0.6-1.3); SODIUM 141 mmol/L (136-145); eGFR NON AFRICAN AMERICAN 80 mL/min (90-120)
[2018-02-07 06:18] LABS: ALBUMIN 2.8 g/dL (3.4-5.0); ALT (SGPT) 14 U/L (10-68); CALC OSMOLALITY 285 mosm/kg (275-300); GLUCOSE 212 mg/dL (74-106); PROTEIN - SERUM 5.9 g/dL (6.4-8.2); UREA NITROGEN 10 mg/dL (7-18)
[2018-02-07 07:55] VITALS: BP 120/63
[2018-02-07 11:33] VITALS: BP 139/78
[2018-02-07 12:28] LABS: UDS - AMPHET NEGATIVE QUAL (NEGATIVE); UDS - BARB NEGATIVE QUAL (NEGATIVE); UDS - BENZO POSITIVE QUAL (NEGATIVE); UDS - COCAINE NEGATIVE QUAL (NEGATIVE); UDS - OPIATE NEGATIVE QUAL (NEGATIVE); UDS - PCP NEGATIVE QUAL (NEGATIVE); UDS - THC NEGATIVE QUAL (NEGATIVE)
[2018-02-07 12:36] LABS: APPEARANCE HAZY (CLEAR); BILIRUBIN NEGATIVE (NEGATIVE); COLOR YELLOW (YELLOW); GLUCOSE NEGATIVE (NEGATIVE); KETONE NEGATIVE (NEGATIVE); NITRITE POSITIVE (NEGATIVE); PROTEIN NEGATIVE (NEGATIVE); SPECIFIC GRAVITY 1.015 (1.005-1.020); UROBILINOGEN NORMAL (NORMAL)
[2018-02-07 12:37] LABS: BACTERIA MANY /hpf (NONE SEEN); EPITHELIAL CELLS 0-5 /hpf (0-5); RED CELLS - URINE 0-5 /hpf (0-5)
[2018-02-07] MEDS ORDERED: NICODERM C1 PATCH .1 TRANSDERM (13:01)
[2018-02-07] MEDS ORDERED: CARAFATE1 G PO (13:01)
[2018-02-07] MEDS ORDERED: LEVAQUIN750 MG PO (13:02)
== END 2018-02-07 14:00 | disposition home or self-care (01) ==
LOC: D.ER 06:12 → D.M2 08:41 → OBSVTIME 08:41 → D.M2 02-07 14:00
PROVIDERS: Emergency Medicine; Family Medicine; Internal Medicine Nephrology
DX: R07.89 Other chest pain (principal); I25.119 Atherosclerotic heart disease of native coronary artery with unspecified angina pectoris; Z95.5 Presence of coronary angioplasty implant and graft; E11.42 Type 2 diabetes mellitus with diabetic polyneuropathy; I10 Essential (primary) hypertension; E78.5 Hyperlipidemia, unspecified; N39.0 Urinary tract infection, site not specified; F41.9 Anxiety disorder, unspecified; F17.203 Nicotine dependence unspecified, with withdrawal

== ENCOUNTER 2018-02-21 18:17 | Emergency (ER) | payer MEDICAID ==
[~2018-02-21] VITALS: Ht 162.6 cm; Wt 70.5 kg
[~2018-02-21 18:17] MED LIST changes: +CARAFATE1 G PO; +LEVAQUIN750 MG PO; +NICODERM C1 PATCH .1 TRANSDERM
[2018-02-21 18:21] VITALS: Ht 162.6 cm; Wt 70.5 kg
[2018-02-21] MEDS ORDERED: NORCO 7.5/325 T1 TA1 PO (19:58)
[2018-02-21 20:15] VITALS: BP 128/70
== END 2018-02-21 20:15 | disposition home or self-care (01) ==
LOC: D.ER 18:17
DX: M54.16 Radiculopathy, lumbar region (principal); W01.0XXA Fall on same level from slipping, tripping and stumbling without subsequent striking against object, initial encounter; Y93.89 Activity, other specified; Y92.830 Public park as the place of occurrence of the external cause; R20.2 Paresthesia of skin; E11.9 Type 2 diabetes mellitus without complications; E07.89 Other specified disorders of thyroid; F17.200 Nicotine dependence, unspecified, uncomplicated

== ENCOUNTER 2018-03-08 19:32 | Emergency (ER) | payer MEDICAID ==
[~2018-03-08] VITALS: Ht 162.6 cm; Wt 70.5 kg
[~2018-03-08 19:32] MED LIST changes: +NORCO 7.5/325 T1 TA1 PO
[2018-03-08 19:40] VITALS: Ht 162.6 cm; Wt 70.5 kg
[2018-03-08 20:02] LABS: BASOPHILS 0.2 % (0-2); EOSINOPHILS 0.8 % (0-7); HEMATOCRIT 41.7 % (36.0-48.0); HEMOGLOBIN 14.3 g/dL (12-16); IMMATURE GRANULOCYTES 0.2 % (0-5); LYMPHOCYTES 35.9 % (15-50); MCH 29.6 pg (26.0-34.0); MCHC 34.3 g/dL (31.0-37.0); MCV 86.3 fL (80.0-100.0); MEAN PLATELET VOLUME 12.2 fL (7.4-10.4); NEUTROPHILS 58.9 % (40-80); PLATELET COUNT 179 10x3/uL (130-400); RBC 4.83 10x6/uL (4.00-5.40)
[2018-03-08 20:29] LABS: ALBUMIN 3.9 g/dL (3.4-5.0); ALKALINE PHOSPHATASE 87 U/L (46-116); BILIRUBIN - TOTAL 0.44 mg/dL (0.2-1.3); CALCIUM 8.5 mg/dL (8.5-10.1); CARBON DIOXIDE 24.3 mmol/L (21.0-32.0); CKMB 0.4 U/L (0.0-3.6); CREATINE KINASE 7 UL (21-215); GLUCOSE 176 mg/dL (74-106); PROTEIN - SERUM 5.7 g/dL (6.4-8.2); UREA NITROGEN 9 mg/dL (7-18)
[2018-03-08 20:42] LABS: ALT (SGPT) 20 U/L (10-68); CALC OSMOLALITY 270 mosm/kg (275-300); CHLORIDE - SERUM 98 mmol/L (98-107); POTASSIUM - SERUM 4.1 mmol/L (3.5-5.1); SODIUM 134 mmol/L (136-145); eGFR NON AFRICAN AMERICAN 62 mL/min (90-120)
[2018-03-08 22:49] LABS: APPEARANCE CLEAR (CLEAR); BACTERIA MANY /hpf (NONE SEEN); BILIRUBIN NEGATIVE (NEGATIVE); COLOR YELLOW (YELLOW); EPITHELIAL CELLS 0-5 /hpf (0-5); GLUCOSE NEGATIVE (NEGATIVE); KETONE NEGATIVE (NEGATIVE); NITRITE NEGATIVE (NEGATIVE); PROTEIN NEGATIVE (NEGATIVE); RED CELLS - URINE OCC /hpf (0-5); UROBILINOGEN NORMAL (NORMAL); WHITE CELLS - URINE 0-5 /hpf (0-5)
[2018-03-08 22:51] LABS: UDS - AMPHET NEGATIVE QUAL (NEGATIVE); UDS - BARB NEGATIVE QUAL (NEGATIVE); UDS - BENZO POSITIVE QUAL (NEGATIVE); UDS - COCAINE NEGATIVE QUAL (NEGATIVE); UDS - OPIATE NEGATIVE QUAL (NEGATIVE); UDS - PCP NEGATIVE QUAL (NEGATIVE); UDS - THC NEGATIVE QUAL (NEGATIVE)
[2018-03-09 00:27] VITALS: BP 121/76
== END 2018-03-09 00:27 | disposition home or self-care (01) ==
LOC: D.ER 19:32
PROVIDERS: Emergency Medicine
DX: R07.89 Other chest pain (principal); E11.9 Type 2 diabetes mellitus without complications; I10 Essential (primary) hypertension; F17.200 Nicotine dependence, unspecified, uncomplicated

== ENCOUNTER 2018-03-10 00:17 | Observation (INO) | payer MEDICAID ==
[2018-03-10] VITALS (12 sets, daily range): BP systolic 114–155; BP diastolic 50–97; BMI 26.6
[~2018-03-10] VITALS: Ht 162.6 cm; Wt 68.1 kg
--- NOTE | ~2018-03-10 | HEMODYNAMI ---
PATIENT:VIVIANA DELAROSA MEDICAL RECORD: [id number] : 67 LOCATION:[facility] [id number] ADMISSION DATE: 03/10/18 Generatedon:03/12/20188:20 Patient name: VIVIANA DELAROSA Patient #: [id number] SSN: [id number] : 1965 Date of study: 03/12/2018 Page: Of Hemodynamic Procedure Report Patient Data Patient Demographics Procedure consent was obtained First Name: VIVIANA Gender: Female Last Name: [place] : 1965 Patient #: [id number] Age: 52 year(s) Race: SSN: [id number] Additional ID: [id number] Contact details Address: [place] [address] State: [place] City: [place] Zip code: [address] Past Medical History History of disease Date Diagnosis Comments CAD Allergies Allergen Reaction Date Comments Reported Penicillins 09/07/2014 Morphine 09/07/2014 Other allergy 09/07/2014 steroids Penicillins 07/15/2016 Morphine 07/15/2016 Other allergy 04/26/2017 PCN, steroids, morphine Admission Admission Data Admission Date: 03/10/2018 Admission Time: 2:27 Room #: .2115 Procedure Procedure Types Cath Procedure PCI Procedure Coronary Stent Coronary Stent Initial Procedure Description Procedure Date Procedure Date: 03/12/2018 Procedure Start Time: 8:11 Procedure End Time: 8:20 Procedure Staff Name Function Kalyan Byrd MD Performing Physician Amy Aguillon RT Monitor Paolo Castaneda RN Nurse Holly Zaidi RT Scrub Procedure Data Cath Procedure Fluoroscopy Diagnostic fluoroscopy Total fluoroscopy Time: 1.5 time: 1.5 min min Diagnostic fluoroscopy Total fluoroscopy dose: 99 dose: 99 mGy mGy Contrast Material Contrast Material Type Amount (ml) Isovue 300 18 Entry Location Entry Primary Successful Side Size Upsize Upsize Entry Closure Succes sful Closure Location (Fr) 1 (Fr) 2 (Fr) Remarks Device Remarks Femoral Left 6 Fr Exoseal artery Short Estimated blood loss: 5 ml Procedure Complications No complications Procedure Medications Medication Administration Route Dosage 0.9% NaCl I.V. 100 ml/hr Oxygen etCO2 Nasal cannula 2 l/min Heparin Flush Bag added to field 2 bags (1000units/500ml NS) Lidocaine 2% added to field 20 Versed I.V. 2 mg Fentanyl I.V. 100 mcg Versed I.V. 2 mg Fentanyl I.V. 50 mcg Heparin Bolus I.V. 4000 units Hemodynamics Rest Heart Rate: 83 (bpm) Snapshots Pre Cath Intra NCS Post Cath Vital Signs Time Heart Resp SPO2 etCO2 NIBP (mmHg) Rhythm Pain Sedation Rate (ipm) (%) (mmHg) Status Level (bpm) 7:42:54 80 17 99 41.2 131/84(107) NSR 0 (11) 10(A) , No pain 7:47:37 78 20 99 38.2 124/67(97) NSR 0 (11) 10(A) , No pain 7:52:11 81 12 97 48 107/69(101) NSR 0 (11) 10(A) , No pain 7:56:45 83 19 97 50.2 99/61(87) NSR 0 (11) 10(A) , No pain 8:01:22 82 14 96 49.5 97/62(85) NSR 0 (11) 10(A) , No pain 8:05:58 83 15 97 51 94/56(82) NSR 0 (11) 10(A) , No pain 8:10:31 84 12 96 48.7 94/65(86) NSR 0 (11) 10(A) , No pain 8:15:05 86 10 96 48.7 101/59(82) NSR 0 (11) 9(A) , No pain 8:19:42 90 9 96 50.2 101/60(88) NSR 0 (11) 9(A) , No pain Medications Time Medication Route Dose Verified Delivered Reason Notes Effectiveness by by 7:45:35 0.9% NaCl I.V. 100 Paolo Paolo Per physician ml/hr Tonya Castaneda RN RN 7:45:45 Oxygen etCO2 2 Paolo Paolo Per physician Nasal l/min Tonya Castaneda cannula RN RN 7:46:01 Heparin Flush added 2 Paolo Paolo used for Bag to bags Tonya Castaneda procedure (1000units/500ml field RN RN NS) 7:46:11 Lidocaine 2% added 20ml Paolo Paolo for local to vial Tonya Tonya anesthetic field RN RN 8:09:40 Versed I.V. 2 mg Paolo Paolo for sedation Tonya Castaneda RN RN 8:09:49 Fentanyl I.V. 100 Paolo Paolo for sedation mcg Tonya Castaneda RN RN 8:11:50 Versed I.V. 2 mg Paolo Paolo for sedation Tonya Castaneda RN RN 8:11:56 Fentanyl I.V. 50 Paolo Paolo for sedation mcg Tonya Castaneda RN RN 8:15:04 Heparin Bolus I.V. 4000 Paolo Paolo for units Tonya Castaneda anticoagulation RN resaw operator Log Time Note 7::18 Time tracking: Regular hours (M-F 7:00 - 5:00) 7:20:22 Plan of Care:Hemodynamics will remain stable., Cardiac rhythm will remain stable., Comfort level will be maintained., Respiratory function will remain adequate., Patient/ family verbilizes understanding of procedure., Procedure tolerated without complication., Recovers from procedure without complications.. 7:26:39 Holly Zaidi RT(R) sent for patient. Start room use. 7:32:55 Patient received from PCU to CCL 1 Alert and oriented. Tansferred to table in Supine position. 7:32:56 Correct patient and procedure confirmed by team. 7:32:57 Warm blankets applied, and temitope hugger turned on for patient comfort. 7:32:59 Signed procedure consent form obtained from patient. 7:33:00 ECG and BP/O2 sat monitors applied to patient. 7:33:01 Full Disclosure recording started 7:42:01 Vital chart was started 7:42:04 Rhythm: sinus rhythm 7:42:14 H&P Date Dictated: 03/10/2018 Within 30 days and on chart.. 7:42:15 Pre-procedure instructions explained to patient. 7:42:15 Pre-op teaching completed and patient verbalized understanding. 7:42:18 Family unavailable. 7:42:20 Patient NPO since Midnight. 7:42:40 Is the patient allergic to Iodine/contrast media? No. 7:42:42 Is patient on blood thinner?Yes 7:42:44 ACC The patient was administered the following blood thiners within the last 24 hours: ACCPlavix 7:42:53 Patient diabetic? Yes. 7:42:54 If diabetic: On Metformin? Yes 7:43:12 If on Metformin: Last Dose? 03/08/2018 7:43:25 Previous problem with sedation/anesthesia? No ? 7:43:27 Snore? Yes 7:43:28 Sleep apnea? No 7:43:29 Deviated septum? No 7:43:29 Opens mouth fully? Yes 7:43:30 Sticks out tongue? Yes 7:43:34 Airway obstruction? No ? 7:43:39 Dentures? Yes OUT 7:43:50 Pre procedure: left dorsailis pedis pulse 2+ Normal; easily identifiable; not easily obliterated 7:43:53 Patient pain scale 0/10 ?. 7:44:01 IV patent on arrival in right wrist with 0.9% NaCl at KVO. 7:44:04 Lab results completed and on chart. 7:44:08 Left groin area was prepped with chlora-prep and draped in sterile fashion 7:44:10 Alarms reviewed by R. N. 7:44:10 Sharps counted by scrub and verified by R.N. 7:44:17 Use device set CATH PACK 7:44:20 Use device set TAUTH PCI 7:44:31 SHEATH Prelude 6Fr 0.035 ([id number]) opened to sterile field. 7:44:32 Tegaderm 4 x 4 (1626W) opened to sterile field. 7:44:33 ACIST Syringe (92625) opened to sterile field. 7:44:34 ACIST Hand Control (75146) opened to sterile field. 7:44:34 ACIST Manifold (93929) opened to sterile field. 7:44:35 Medline Cath Pack ([id number]) opened to sterile field. 7:44:36 Bag Decanter () opened to sterile field. 7:44:36 DIAGNOSTIC WIRE .035 260cm J wire (586419) opened to sterile field. 7:44:37 INFLATOR Merit BasixCompak (BP4747) opened to sterile field. 7:44:39 CHOICE PT Extra Support 182cm wire ([id number]) opened to sterile field. 7:45:35 0.9% NaCl 100 ml/hr I.V. was administered by Paolo Castaneda RN; Per physician; 7:45:45 Oxygen 2 l/min etCO2 Nasal cannula was administered by Paolo Castaneda RN; Per physician; 7:46:01 Heparin Flush Bag (1000units/500ml NS) 2 bags added to field was administered by Paolo Castaneda RN; used for procedure; 7:46:11 Lidocaine 2% 20ml vial added to field was administered by Paolo Castaneda RN; for local anesthetic; 7:48:08 Zero performed for pressure channel P1 7:48:32 Physician paged 7:50:59 Baseline sample Acquired. 8:08:31 Final Timeout: patient, procedure, and site verified with staff and physician. All members of the team are in agreement. 8:08:33 Left groin site verified by team. 8:08:35 Physical assessment completed. ASA score P 2 - A patient with mild systemic disease as per Kalyan Byrd MD. 8:08:38 Sedation plan: IV Moderate Sedation Medication:Versed, Fentanyl 8:09:40 Versed 2 mg I.V. was administered by Paolo Castaneda RN; for sedation; 8:09:49 Fentanyl 100 mcg I.V. was administered by Paolo Castaneda RN; for sedation; 8:10:57 Procedure started. 8:11:00 Local anesthetic to left femerol artery with Lidocaine 2% by Kalyan Byrd MD.INITIAL ACCESS ONLY 8:11:50 Versed 2 mg I.V. was administered by Paolo Castaneda RN; for sedation; 8:11:56 Fentanyl 50 mcg I.V. was administered by Paolo Castaneda RN; for sedation; 8:12:57 A 6 Fr Short sheath was inserted into the Left Femoral artery 8:13:39 6 Fr XBLAD 3.5 guide catheter was inserted over the wire 8:14:48 CHOICE PT ES wire advanced. 8:15:04 Heparin Bolus 4000 units I.V. was administered by Paolo Castaneda RN; for anticoagulation; 8:16:04 Place stent Inflation Number: 1 A CARROLL RX 3.5 x 08 stent ([id number]) was prepped and advanced across the Prox LAD. The stent was deployed at 11 JESSICA for 0:05 (min:sec). 8:16:15 Inflation number: 2 The stent balloon was then re-inflated across the Prox LAD to 15 JESSICA for 0:05 (min:sec). 8:16:29 Stent catheter was removed intact over wire. 8:16:29 Wire removed. 8:16:30 Guide catheter removed. 8:16:53 Sheath removed intact; hemostasis achieved with Exoseal to the Left Femoral artery. 8:16:55 Procedure ended.(Physican Out) 8:17:05 Fluoroscopy time 01.50 minutes. 8:17:08 Flurop Dose total: 99 8:17:08 Fluoroscopy dose: 99 mGy 8:17:11 Contrast amount:Isovue 300 18ml. 8:17:12 Sharps counted by scrub and verified by R.N. 8:17:14 Insertion/operative site no bleeding no hematoma. 8:17:17 Post-op/insertion site Right Femoral artery dressed using a 4 x 4 and Tegaderm. 8:17:21 Post right femoral artery:stable, clean and dry 8:17:47 Post Procedure Pulses reassessed and unchanged 8:17:50 Post-procedure physical assessment completed. ASA score P 2 - A patient with mild systemic disease as per Kalyan Byrd MD. 8:17:52 Post procedure rhythm: unchanged. 8:17:54 Estimated blood loss: 5 ml 8:17:55 Patient needs reinforcement of post procedure teaching. 8:17:56 Post procedure instruction explained to patient.Patient verbalizes understanding. 8:18:02 Procedure Complication : No complications 8:18:07 EXOSEAL 6Fr (EX600) opened to sterile field. 8:18:09 See physician's report for complete and final results. 8:19:57 Procedure and supply charges have been captured, reviewed, submitted and are correct. 8:20:14 Vital chart was stopped 8:20:18 Report given to PCU. 8:20:22 Patient transfered to PCU with Bed. 8:20:31 Procedure ended. 8:20:31 Full Disclosure recording stopped 8:20:34 End room use (Document Last) Intervention Summary Intervention Notes Time ActionType Lesion and Equipment Used Action# Pressure Duration Attributes 8:16:04 Place stent Prox LAD CARROLL RX 3.5 x 1 11 00:05 08 stent ([id number]) 8:16:15 Reinflate Prox LAD CARROLL RX 3.5 x 2 15 00:05 stent 08 stent balloon ([id number]) Device Usage Item Name Manufacture Quantity Catalog Number Hospital Part Current Minimal Lot# / Charge Number Stock Stock Serial# Code SHEATH Prelude Merit 1 [id number] 070741 5 6Fr 0.035 Medical (RFJ-5S-88-035) Tegaderm 4 x 4 3M 1 1626W 924030 757783 199336 5 (1626W) ACIST Syringe Acist 1 25873 127661 394610 542492 20 (52861) [employer] ACIST Hand Acist 1 25134 896782 281150 067273 5 Control (61971) [employer] ACIST Manifold Acist 1 96878 127540 087225 012319 5 (18769) [employer] Medline Cath Cardinal 1 [id number] 792079 37147 697795 5 Pack [employer] ([id number]) Bag Decanter Microtek 1 2001S 396205 53698 414236 5 (2001S) Medical Inc. DIAGNOSTIC WIRE [facility] [place] 1 381927 439232 683409 308391 30 .035 260cm J wire (192529) INFLATOR Merit Merit 1 MN5130 597090 979320 136052 15 [facility] Medical (YP4689) CHOICE PT Extra [place] 1 [id number] 485331 152044 803486 5 Support 182cm Scientific wire ([id number]) CARROLL RX 3.5 x Medtronic 1 [id number] 241979 7264851 219081 5 [id number] 08 stent ([id number]) EXOSEAL 6Fr Cardinal 1 EX600 538578 020169 348240 10 (EX600) Health Signature Audit [place] Stage Time Signature Unsigned Intra-Procedure 03/12/2018 Amy 8:20:45 AM Counts RT(R) Signatures Monitor : Amy Signature : Counts RT Date : Time : [address] [address]
--- NOTE | ~2018-03-10 | OP ---
PATIENT NAME: VIVIANA DELAROSA MEDICAL RECORD: [id number] :67 LOCATION:D.M2 D.2115 ADMISSION DATE:03/10/18 SURGEON: ARMINDA TURPIN MD DATE OF OPERATION: 03/11/2018 PROCEDURES: 1. PTCA stent RCA. 2. Left heart catheterization. 3. Selective coronary angiography. 4. Left ventriculogram. INDICATION: Unstable angina and coronary artery disease. PROCEDURE IN DETAIL: After informed consent was obtained and after a detailed description of risks, benefits as well as alternative therapies, the patient elected to proceed with angiogram and angioplasty. The right femoral area was prepped and draped in normal sterile fashion. Right femoral artery was cannulated via modified Seldinger technique with placement of 6-Israeli sheath. All catheters exchanged through the sheath. FINDINGS: The left ventriculogram was performed in standard 30-degree BEGUM view, reveals good cardiac wall motion throughout all segments. Overall ejection fraction estimated 60%. SELECTIVE CORONARY ANGIOGRAPHY: 1. Left main is with no significant angiographic disease. 2. Left anterior descending has previously placed stents. There is 80% stenosis proximal to the previously placed stents. 3. The left circumflex has previously placed stents, these are widely patent with no significant restenosis. No disease elsewise in left circumflex or its branches. 4. The right coronary artery has previously placed stent at the ostium. This has 80% in-stent restenosis. PTCA STENT OF THE RCA: The stent used was a 2.25 x 12 mm Hoagland. Result was 0% residual stenosis. OVERALL IMPRESSION: Successful PTCA stent of the RCA going from 80% in-stent restenosis at the ostium to 0% residual stenosis. PLAN: For PTCA stent of the LAD in the near future. TRANSINT:[id number] Voice Confirmation ID: [id number] DOCUMENT ID: [id number] ARMINDA TURPIN MD at 1950 CC: [id number] DICTATION DATE: 03/11/18 1241 PAINTER AND DECORATOR APPRENTICE: 03/11/18 1247 DIS IN 03/12/18 [place] [id number] [place] [id number]
--- NOTE | ~2018-03-10 | HEMODYNAMI ---
PATIENT:VIVIANA DELAROSA MEDICAL RECORD: [id number] : 67 LOCATION:[address] [id number] ADMISSION DATE: 03/10/18 Generatedon:03/11/201812:42 Patient name: VIVIANA DELAROSA Patient #: [id number] SSN: [id number] : 1965 Date of study: 03/11/2018 Page: Of Hemodynamic Procedure Report Patient Data Patient Demographics Procedure consent was obtained First Name: VIVIANA Gender: Female Last Name: [place] : 1965 Patient #: [id number] Age: 52 year(s) Race: SSN: [id number] Additional ID: [id number] Contact details Address: [address] [address] State: [place] City: [place] Zip code: [address] Past Medical History History of disease Date Diagnosis Comments CAD Allergies Allergen Reaction Date Comments Reported Penicillins 09/07/2014 Morphine 09/07/2014 Other allergy 09/07/2014 steroids Penicillins 07/15/2016 Morphine 07/15/2016 Other allergy 04/26/2017 PCN, steroids, morphine Admission Admission Data Admission Date: 03/10/2018 Admission Time: 2:27 Room #: .2115 Procedure Procedure Types Cath Procedure Diagnostic Procedure [facility] w/Coronaries Sedation Charges Moderate Sedation up to 15 minutes PCI Procedure Coronary Stent Coronary Stent Initial Procedure Description Procedure Date Procedure Date: 03/11/2018 Procedure Start Time: 12:20 Procedure End Time: 12:41 Procedure Staff Name Function Kalyan Byrd MD Performing Physician Amy Aguillon RT Monitor Holly Zaidi RT Scrub Paolo Castaneda RN Nurse Procedure Data Cath Procedure Fluoroscopy Diagnostic fluoroscopy Total fluoroscopy Time: 2.9 time: 2.9 min min Diagnostic fluoroscopy Total fluoroscopy dose: 473 dose: 473 mGy mGy Contrast Material Contrast Material Type Amount (ml) Isovue 300 61 Entry Location Entry Primary Successful Side Size Upsize Upsize Entry Closure Succes sful Closure Location (Fr) 1 (Fr) 2 (Fr) Remarks Device Remarks Femoral Right 5 Fr 6 Fr Exoseal artery Short Estimated blood loss: 10 ml Diagnostic catheters Device Type Used For End Catheter Placement MULTIPACK Pigtail 5 Fr LV Angiography catheter MULTIPACK JL 4.0 5Fr Left Coronary catheter Angiography MULTIPACK 3DRC 5Fr Right Coronary catheter Angiography Procedure Complications No complications Procedure Medications Medication Administration Route Dosage 0.9% NaCl I.V. 100 ml/hr Oxygen etCO2 Nasal cannula 2 l/min Heparin Flush Bag added to field 2 bags (1000units/500ml NS) Lidocaine 2% added to field 20 Versed I.V. 2 mg Fentanyl I.V. 100 mcg Versed I.V. 2 mg Fentanyl I.V. 100 mcg Versed I.V. 2 mg Heparin Bolus I.V. 4000 units Fentanyl I.V. 100 mcg Hemodynamics Rest Heart Rate: 74 (bpm) Snapshots Pre Cath Intra NCS Post Cath Vital Signs Time Heart Resp SPO2 etCO2 NIBP (mmHg) Rhythm Pain Sedation Rate (ipm) (%) (mmHg) Status Level (bpm) 11:58:55 70 19 100 38.3 146/82(105) NSR 0 (11) 10(A) , No pain 12:03:40 73 15 96 37.6 132/78(109) NSR 0 (11) 10(A) , No pain 12:08:20 78 15 95 41.3 139/77(112) NSR 0 (11) 10(A) , No pain 12:13:03 77 14 96 43.6 134/72(106) NSR 0 (11) 10(A) , No pain 12:17:44 86 26 96 33.8 134/85(108) NSR 0 (11) 10(A) , No pain 12:22:22 79 16 95 40.6 135/77(109) NSR 0 (11) 10(A) , No pain 12:27:03 79 15 91 45.1 138/76(107) NSR 0 (11) 10(A) , No pain 12:31:46 90 15 94 50.3 138/74(97) NSR 0 (11) 10(A) , No pain 12:36:28 93 14 95 46.6 123/63(95) NSR 0 (11) 10(A) , No pain 12:41:07 90 6 89 0 117/72(101) NSR 0 (11) 10(A) , No pain Medications Time Medication Route Dose Verified Delivered Reason Notes Effectiveness by by 11:57:21 0.9% NaCl I.V. 100 Paolo Paolo Per physician ml/hr Tonya Castaneda RN RN 11:57:31 Oxygen etCO2 2 Paolo Paolo Per physician Nasal l/min Tonya Castaneda cannula RN RN 11:57:40 Heparin Flush added 2 Paolo Paolo used for Bag to bags Loriesha Castaneda procedure (1000units/500ml field RN RN NS) 11:57:51 Lidocaine 2% added 20ml Paolo Paolo for local to vial Loriesha Castaneda anesthetic field RN RN 12:17:16 Versed I.V. 2 mg Paolo Paolo for sedation Tonya Castaneda RN RN 12:17:24 Fentanyl I.V. 100 Paolo Paolo for sedation mcg Tonya Castaneda RN RN 12:20:13 Versed I.V. 2 mg Paolo Paolo for sedation Tonya Castaneda RN RN 12:20:19 Fentanyl I.V. 100 Paolo Poalo for sedation mcg Tonya Castaneda RN RN 12:22:41 Versed I.V. 2 mg Paolo Paolo for sedation Tonya Castaneda RN RN 12:33:07 Heparin Bolus I.V. 4000 Paolo Paolo for units Tonya Castaneda anticoagulation RN RN 12:34:42 Fentanyl I.V. 100 Paolo Paolo for sedation mcg Tonya Castaneda RN global implementation manager Log Time Note 11:34:51 Time tracking: Regular hours (M-F 7:00 - 5:00) 11:34:55 Plan of Care:Hemodynamics will remain stable., Cardiac rhythm will remain stable., Comfort level will be maintained., Respiratory function will remain adequate., Patient/ family verbilizes understanding of procedure., Procedure tolerated without complication., Recovers from procedure without complications.. 11:38:38 Amy Counts RT(R) sent for patient. Start room use. 11:45:30 Patient received from PCU to CCL 1 Alert and oriented. Tansferred to table in Supine position. 11:45:35 LEFT INSIDE ELBOW HAS DEEP PUPLE BRUISING EXTENDING APPROXIMATLEY 4-5 INCHES SECONDARY TO IV SITE INFILTRATION. 11:45:40 IV left antecubital D/C'd due to infiltration. 11:47:09 IV started by Reji Mcghee RN inright forearm with a 22 gauge IV catheter with 0.9% NaCl at KVO. 11:47:15 IV CATHETER 22g opened to sterile field. 11:47:21 Warm blankets applied, and temitope hugger turned on for patient comfort. 11:47:22 Correct patient and procedure confirmed by team. 11:47:23 Signed procedure consent form obtained from patient. 11:47:24 ECG and BP/O2 sat monitors applied to patient. 11:47:25 Full Disclosure recording started 11:57:21 0.9% NaCl 100 ml/hr I.V. was administered by Paolo Castaneda RN; Per physician; 11:57:31 Oxygen 2 l/min etCO2 Nasal cannula was administered by Paolo Castaneda RN; Per physician; 11:57:40 Heparin Flush Bag (1000units/500ml NS) 2 bags added to field was administered by Paolo Castaneda RN; used for procedure; 11:57:51 Lidocaine 2% 20ml vial added to field was administered by Paolo Castaneda RN; for local anesthetic; 11:57:58 Vital chart was started 11:59:43 Rhythm: sinus rhythm 11:59:45 Baseline sample Acquired. 11:59:51 H&P Date Dictated: 03/10/2018 Within 30 days and on chart.. 11:59:52 Pre-procedure instructions explained to patient. 11:59:53 Pre-op teaching completed and patient verbalized understanding. 12:00:25 Family in patients room. 12:00:27 Patient NPO since Midnight. 12:00:37 Is the patient allergic to Iodine/contrast media? No. 12:00:42 Is patient on blood thinner?Yes 12:00:45 ACC The patient was administered the following blood thiners within the last 24 hours: ACCPlavix 12:00:47 Patient diabetic? Yes. 12:00:49 If diabetic: On Metformin? Yes 12:00:51 If on Metformin: Last Dose? 03/08/2018 12:01:07 Patient not . Patient has had hysterectomy. 12:01:12 Previous problem with sedation/anesthesia? No ? 12:01:13 Snore? Yes 12:01:14 Sleep apnea? No 12:01:15 Deviated septum? No 12:01:16 Opens mouth fully? Yes 12:01:17 Sticks out tongue? Yes 12:01:19 Airway obstruction? No ? 12:01:20 Dentures? No ? 12:01:28 Pre procedure: right dorsailis pedis pulse 1+ Palpable, but thready & weak; easily obliterated 12:01:55 Patient pain scale 0/10 ?. 12:02:10 Lab results completed and on chart. 12:02:16 Right groin area was prepped with chlora-prep and draped in sterile fashion 12:02:17 Alarms reviewed by R. N. 12:02:18 Sharps counted by scrub and verified by R.N. 12:02:19 Physician paged 12:03:54 Zero performed for pressure channel P1 12:04:27 Use device set Femoral Dx 12:04:28 ACIST Syringe (51772) opened to sterile field. 12:04:28 Bag Decanter (2002S) opened to sterile field. 12:04:29 Medline Cath Pack ([id number]) opened to sterile field. 12:04:29 DIAGNOSTIC WIRE .035 260cm J wire (452294) opened to sterile field. 12:04:30 ACIST Hand Control (42955) opened to sterile field. 12:04:31 ACIST Manifold (48709) opened to sterile field. 12:04:31 DIAGNOSTIC Multipack 5Fr catheter set ([id number]) opened to sterile field. 12:04:32 Tegaderm 4 x 4 (1626W) opened to sterile field. 12:04:33 SHEATH Prelude 5Fr 0.035 (LIG-4H-65-035) opened to sterile field. 12:16:07 Final Timeout: patient, procedure, and site verified with staff and physician. All members of the team are in agreement. 12:16:18 Right groin site verified by team. 12:16:25 Physical assessment completed. ASA score P 2 - A patient with mild systemic disease as per Kalyan Byrd MD. 12:16:29 Sedation plan: IV Moderate Sedation Medication:Versed, Fentanyl 12:17:16 Versed 2 mg I.V. was administered by Paolo Castaneda RN; for sedation; 12:17:24 Fentanyl 100 mcg I.V. was administered by Paolo Castaneda RN; for sedation; 12:20:13 Versed 2 mg I.V. was administered by Paolo Castaneda RN; for sedation; 12:20:19 Fentanyl 100 mcg I.V. was administered by Paolo Castaneda RN; for sedation; 12:20:51 Procedure started. 12:20:54 Local anesthetic to right femoral artery with Lidocaine 2% by Kalyan Byrd MD.INITIAL ACCESS ONLY 12:22:41 Versed 2 mg I.V. was administered by Paolo Castaneda RN; for sedation; 12::28 A 5 Fr sheath was inserted into the Right Femoral artery 12:27:42 A MULTIPACK Pigtail 5 Fr catheter was advanced over the wire and used for LV Angiography. 12::58 LV gram done using BEGUM 12::02 EF : 60 % 12::04 Injector settings: Ml/sec: 10, Volume: 20, 12:28:06 Catheter removed. 12:28:15 A MULTIPACK JL 4.0 5Fr catheter was advanced over the wire and used for Left Coronary Angiography. 12:28:50 Use device set [facility] PCI 12:28:52 SHEATH Prelude 6Fr 0.035 (QAX-6W-49-035) opened to sterile field. 12:28:55 INFLATOR Merit BasixCompak (PQ3311) opened to sterile field. 12:28:59 CHOICE PT Extra Support 182cm wire ([id number]) opened to sterile field. 12:29:17 A MULTIPACK 3DRC 5Fr catheter was advanced over the wire and used for Right Coronary Angiography. 12:30:14 Catheter removed. 12:30:40 GUIDE 6FR 3DRC SH catheter ([id number]) opened to sterile field. 12:30:52 Sheath upsized to a 6 Fr Short. 12:32:14 6 Fr 3DRC SH guide catheter was inserted over the wire 12:33:07 Heparin Bolus 4000 units I.V. was administered by Paolo Castaneda RN; for anticoagulation; 12:33:21 CHOICE PT ES wire advanced. 12:34:42 Fentanyl 100 mcg I.V. was administered by Paolo Castaneda RN; for sedation; 12:34:48 Place stent Inflation Number: 1 A CARROLL RX 2.25 x 12 stent ([id number]) was prepped and advanced across the Prox RCA. The stent was deployed at 15 EJSSICA for 0:10 (min:sec). 12:35:00 Inflation number: 2 The stent balloon was then re-inflated across the Prox RCA to 19 JESSICA for 0:11 (min:sec). 12:35:35 Stent catheter was removed intact over wire. 12:35:36 Wire removed. 12:35:37 Guide catheter removed. 12:35:45 Sheath removed intact; hemostasis achieved with Exoseal to the Right Femoral artery. 12:35:47 Procedure ended.(Physican Out) 12:36:18 Procedure type changed to Cath procedure, Diagnostic procedure, LHC, LHC w/Coronaries, Sedation Charges, Moderate Sedation up to 15 minutes, PCI procedure, Coronary Stent, Coronary Stent Initial 12:37:54 Fluoroscopy time 02.90 minutes. 12:37:59 Flurop Dose total: 473 12:37:59 Fluoroscopy dose: 473 mGy 12:38:02 Contrast amount:Isovue 300 61ml. 12:38:03 Sharps counted by scrub and verified by R.N. 12:38:04 Insertion/operative site no bleeding no hematoma. 12:38:07 Post-op/insertion site Right Femoral artery dressed using a 4 x 4 and Tegaderm. 12:38:10 Post right femoral artery:stable, clean and dry 12:38:12 Post Procedure Pulses reassessed and unchanged 12:38:14 Post-procedure physical assessment completed. ASA score P 2 - A patient with mild systemic disease as per Kalyan Byrd MD. 12:38:16 Post procedure rhythm: unchanged. 12:38:35 Estimated blood loss: 10 ml 12:38:37 Post procedure instruction explained to patient.Patient verbalizes understanding. 12:38:38 Patient needs reinforcement of post procedure teaching. 12:38:46 Procedure Complication : No complications 12:40:24 EXOSEAL 6Fr (EX600) opened to sterile field. 12:40:42 Procedure and supply charges have been captured, reviewed, submitted and are correct. 12:41:40 Vital chart was stopped 12:41:41 See physician's report for complete and final results. 12:41:43 Report given to PCU. 12:41:47 Patient transfered to PCU with Bed. 12:41:54 Procedure ended. 12:41:54 Full Disclosure recording stopped 12:41:58 End room use (Document Last) Intervention Summary Intervention Notes Time ActionType Lesion and Equipment Used Action# Pressure Duration Attributes 12:34:48 [address] stent Prox RCA CARROLL RX 2.25 x 1 15 00:10 12 stent ([id number]) 12:35:00 Reinflate Prox RCA CARROLL RX 2.25 x 2 19 00:11 stent 12 stent balloon ([id number]) Device Usage Item Name Manufacture Quantity Catalog Number Hospital Part Current Minimal Lot# / Charge Number Stock Stock Serial# Code IV CATHETER 22g B. Nava 1 [id number] [id number] 253094 066133 5 ACIST Syringe Acist 1 48312 659752 720555 582521 20 (71285) [employer] Bag Decanter Microtek 1 2001S 714066 08635 248547 5 () Medical Inc. Medline Cath Cardinal 1 [id number] 701098 94127 073917 5 Pack Health ([id number]) DIAGNOSTIC WIRE St Kyle 1 658598 765140 494964 481309 30 .035 260cm J wire (880324) ACIST Hand Acist 1 77208 079177 799169 014935 5 Control (60970) [employer] Inc ACIST Manifold Acist 1 16886 345960 022375 137251 5 (19312) [employer] Inc DIAGNOSTIC Cardinal 1 CW6955 170045 24017 555862 30 Multipack 5Fr Health catheter set ([id number]) Tegaderm 4 x 4 3M 1 1626W 424801 649816 522471 5 (1626W) SHEATH Prelude Merit 1 SLP-5T-08-035 430427 467476 594556 5 5Fr 0.035 Medical (ZPJ-5U-19-035) MULTIPACK Cardinal 1 105254 5 Pigtail 5 Fr Health catheter MULTIPACK JL Cardinal 1 451945 5 4.0 5Fr Health catheter SHEATH Prelude Merit 1 [id number]-8A-48-35 036500 7984740 319094 5 6Fr 0.035 Medical (WCH-8T-26-035) INFLATOR Merit Merit 1 PS3810 395866 667465 515045 15 CalsyscaAlaris Royalty (PD2200) CHOICE PT Extra [place] 1 [id number] 691659 298313 007910 5 Support 182cm Scientific wire ([id number]) MULTIPACK 3DRC Cardinal 1 173218 5 5Fr catheter Health GUIDE 6FR 3DRC Medtronic 1 [id number] 696321 827638 242126 1 SH catheter ([id number]) CARROLL RX 2.25 x Medtronic 1 [id number] 800997 6020144 447051 5 [id number] 12 stent ([id number]) EXOSEAL 6Fr Cardinal 1 EX600 289766 293387 104135 10 (EX600) Health Signature Audit [place] Stage Time Signature Unsigned Intra-Procedure 03/11/2018 Amy 12:42:09 PM Counts RT(R) Signatures Monitor : Amy Signature : Counts RT Date : Time : [address] [address]
--- NOTE | ~2018-03-10 | OP ---
PATIENT NAME: VIVIANA DELAROSA MEDICAL RECORD: [id number] :67 LOCATION:D.M2 D.2115 ADMISSION DATE:03/10/18 SURGEON: ARMINDA TURPIN MD DATE OF OPERATION: 03/12/2018 PROCEDURES: 1. PTCA and stent of LAD. 2. Selective coronary angiography. INDICATION: Angina and coronary artery disease. PROCEDURE IN DETAIL: After informed consent was obtained and after a detailed explanation of the risks, benefits as well as alternative therapies, the patient elected to proceed with angiogram and angioplasty. The left femoral area was prepped and draped in normal sterile fashion. Left femoral artery was cannulated via modified Seldinger technique with placement of 6-Mongolian sheath. All catheters exchanged through this sheath. FINDINGS: The left anterior descending has 75% to 80% stenosis proximally. This was addressed with a 3.5 x 8-mm Jefferson stent. Result was 0% residual stenosis. OVERALL IMPRESSION: Successful PTCA and stent of the LAD going from 75% to 80% initial stenosis to 0% residual. TRANSINT:[id number] Voice Confirmation ID: [id number] DOCUMENT ID: [id number] ARMINDA TURPIN MD at 1950 CC: [id number] DICTATION DATE: 03/12/18820 OFFSHORE DIVER: 03/12/18827 DIS IN 03/12/[address] [address]
--- NOTE | ~2018-03-10 | DS ---
PATIENT:VIVIANA BOGGS :67 MEDICAL RECORD: [id number] DISCHARGE SUMMARY ADMISSION DATE: 03/10/18 DISCHARGE DATE: 03/12/18 DISCHARGE DIAGNOSES: 1. Unstable angina. 2. Coronary artery disease. 3. Percutaneous transluminal coronary angioplasty and stent to the right coronary artery and left anterior descending this admission. HOSPITAL COURSE: Ms. Boggs presents with unstable angina, found to have 2-vessel disease of the RCA and LAD, underwent successful PTCA stent of both territories, was discharged home with the addition of aspirin and Plavix to her medical regimen. [facility] month. TRANSINT:[id number] Voice Confirmation ID: [id number] DOCUMENT ID: [id number] ARMINDA TURPIN MD at 1949 CC: [id number] DICTATION DATE: 03/12/18819 REGIONAL EXTENSION SERVICE SPECIALIST: 03/12/18 09 DIS IN 03/12/18 [address] [place] [address]
[2018-03-10 01:10] LABS: BASOPHILS 0.2 % (0-2); EOSINOPHILS 1.1 % (0-7); HEMATOCRIT 41.6 % (36.0-48.0); HEMOGLOBIN 14.6 g/dL (12-16); IMMATURE GRANULOCYTES 0.1 % (0-5); LYMPHOCYTES 35.3 % (15-50); MCH 29.8 pg (26.0-34.0); MCHC 35.1 g/dL (31.0-37.0); MCV 84.9 fL (80.0-100.0); MEAN PLATELET VOLUME 12.5 fL (7.4-10.4); NEUTROPHILS 56.3 % (40-80); PLATELET COUNT 191 10x3/uL (130-400); WBC 8.8 10x3/uL (4.8-10.8)
[2018-03-10 01:23] LABS: APTT 31.8 SECONDS (22.8-39.4); INR 1.03 (0.85-1.17); PROTIME 13.1 SECONDS (11.6-15.0)
[2018-03-10 01:25] LABS: ALKALINE PHOSPHATASE 97 U/L (46-116); ALT (SGPT) 23 U/L (10-68); CALC OSMOLALITY 275 mosm/kg (275-300); CALCIUM 8.7 mg/dL (8.5-10.1); CARBON DIOXIDE 22.5 mmol/L (21.0-32.0); CHLORIDE - SERUM 101 mmol/L (98-107); GLUCOSE 217 mg/dL (74-106); POTASSIUM - SERUM 3.5 mmol/L (3.5-5.1); PROTEIN - SERUM 7.9 g/dL (6.4-8.2); SODIUM 135 mmol/L (136-145); UREA NITROGEN 11 mg/dL (7-18); eGFR NON AFRICAN AMERICAN 62 mL/min (90-120)
[2018-03-10 01:41] LABS: CKMB 0.3 U/L (0.0-3.6); CREATINE KINASE 23 UL (21-215); PRO BNP 22 pg/mL (0-125); TROPONIN-I < 0.017 ng/mL (0.000-0.060)
[2018-03-11 05:17] LABS: BASOPHILS 0.3 % (0-2); EOSINOPHILS 2.3 % (0-7); HEMATOCRIT 43.6 % (36.0-48.0); HEMOGLOBIN 14.8 g/dL (12-16); IMMATURE GRANULOCYTES 0.2 % (0-5); LYMPHOCYTES 39.8 % (15-50); MCH 29.5 pg (26.0-34.0); MCHC 33.9 g/dL (31.0-37.0); MONOCYTES 8.8 % (2-11); NEUTROPHILS 48.6 % (40-80); PLATELET COUNT 172 10x3/uL (130-400); RBC 5.01 10x6/uL (4.00-5.40); RDW 13.2 % (11.5-14.5); WBC 8.7 10x3/uL (4.8-10.8)
[2018-03-11 05:28] LABS: CALCIUM 8.7 mg/dL (8.5-10.1); CHLORIDE - SERUM 103 mmol/L (98-107); CREATININE - SERUM 0.8 mg/dL (0.6-1.3); SODIUM 137 mmol/L (136-145); UREA NITROGEN 10 mg/dL (7-18); eGFR NON AFRICAN AMERICAN 80 mL/min (90-120)
[2018-03-11 05:38] LABS: CALC OSMOLALITY 274 mosm/kg (275-300); CARBON DIOXIDE 28.5 mmol/L (21.0-32.0); GLUCOSE 133 mg/dL (74-106); POTASSIUM - SERUM 4.2 mmol/L (3.5-5.1)
[2018-03-11 06:33] VITALS: BP 128/72
[2018-03-11 07:59] VITALS: BP 130/71
[2018-03-11 11:17] VITALS: BP 140/78
[2018-03-11 13:02] VITALS: Ht 162.6 cm; Wt 68.1 kg
[2018-03-11 15:26] VITALS: BP 129/69
[2018-03-11] MEDS ORDERED: VALIUM10 MG PO (20:35)
[2018-03-12 05:45] LABS: HEMATOCRIT 41.3 % (36.0-48.0); HEMOGLOBIN 14.2 g/dL (12-16); LYMPHOCYTES 37.4 % (15-50); MCH 29.5 pg (26.0-34.0); MCHC 34.4 g/dL (31.0-37.0); MCV 85.7 fL (80.0-100.0); MEAN PLATELET VOLUME 12.3 fL (7.4-10.4); PLATELET COUNT 143 10x3/uL (130-400); RBC 4.82 10x6/uL (4.00-5.40); RDW 12.6 % (11.5-14.5); WBC 9.9 10x3/uL (4.8-10.8)
[2018-03-12 05:52] LABS: ALBUMIN 3.7 g/dL (3.4-5.0); ANION GAP 9.3 mmol/L (8-16); BILIRUBIN - TOTAL 0.2 mg/dL (0.2-1.3); CARBON DIOXIDE 29.3 mmol/L (21.0-32.0); POTASSIUM - SERUM 3.6 mmol/L (3.5-5.1); PROTEIN - SERUM 7.5 g/dL (6.4-8.2)
[2018-03-12 05:53] LABS: CREATININE - SERUM 1.1 mg/dL (0.6-1.3)
[2018-03-12 06:23] VITALS: BP 126/69
[2018-03-12 07:54] VITALS: BP 107/74
== END 2018-03-12 15:09 | disposition home or self-care (01) ==
LOC: D.ER 00:17 → D.M2 02:27 → D.EDHOLD 02:27 → OBSVTIME 02:27 → D.M2 14:05
PROVIDERS: Family Medicine
DX: I25.110 Atherosclerotic heart disease of native coronary artery with unstable angina pectoris (principal); T82.855A Stenosis of coronary artery stent, initial encounter; Y84.0 Cardiac catheterization as the cause of abnormal reaction of the patient, or of later complication, without mention of misadventure at the time of the procedure; F17.213 Nicotine dependence, cigarettes, with withdrawal; E11.65 Type 2 diabetes mellitus with hyperglycemia; E03.9 Hypothyroidism, unspecified; I10 Essential (primary) hypertension; E78.00 Pure hypercholesterolemia, unspecified; K21.9 Gastro-esophageal reflux disease without esophagitis